=== PATIENT | female | born 1955 | race Caucasian/White ===

== ENCOUNTER 2024-05-13 21:22 | Emergency (ER) | payer MEDICARE, OTHER, SELFPAY ==
[2024-05-13 21:24] VITALS: BP 95/56; PULSE 61; RESP 18; TEMP 37; O2SAT 95
--- NOTE | 2024-05-13 22:00 | EDRME_ITS ---
Rapid Medical Screening Exam RME Arrival date/time: 05/13/24 21:22 This is a 68-year-old female that comes in with complaints of generalized weakness for the past several weeks. Per EMS EMS went to patient's house approximately a week ago and at that time patient was having slurred speech. Today this is not the complaint. Patient states she just feels very weak also complains of a cough and runny nose. Patient denies fever but feels hot to touch. Patient has a history of high blood pressure, anemia, depression, and per patient has been at bedside has had a hard time walking. Per patient has been at bedside patient takes [place], Xanax, tizanidine. Patient has been reports that tries to have her not take so much medication I have greeted and performed a focused initial assessment of this patient. Initial appropriate labs ordered at this time. A comprehensive ED assessment and evaluation of the patient and analysis of all test and completion of medical decision making process will be conducted by additional ED provider. Chief Complaint: Weakness Time Seen by Provider: 05/13/24 21:59 Vital signs: Vital Signs Temperature 98.6 F 05/13/24 21:24 Pulse Rate 61 05/13/24 21:24 Respiratory Rate 18 05/13/24 21:24 Blood Pressure 95/56 L 05/13/24 21:24 Pulse Oximetry (%) 95 05/13/24 21:24 Oxygen Delivery Method Nasal Cannula 05/13/24 21:24 Oxygen Flow Rate 6 05/13/24 21:24
--- NOTE | 2024-05-13 22:01 | XR_ITS ---
Examination: CT brain head without contrast. 2-D sagittal coronal reconstructions Date and time of exam:May 13, 2024 11:06 PM Comparison August 19, 2023 Indications: Onset slurred speech today CTDI: vol (mGy):51.5 DLP: (mGycm):1047 Technique: Multiple CT axial sections of the brain have been obtained, 5 mm slice thickness. Contrast has not been administered. 2-D sagittal, coronal reconstructions have been obtained Low dose protocols were performed. One or more of the following dose reduction techniques were used; automated exposure control, adjustment of the mA and/or KV according to patient size, use of iterative reconstruction technique. Findings: No significant ventricular enlargement. Intra-axial or extra-axial hemorrhage density is not seen. No mass effect or midline shift Basal cisterns are not remarkable. Fourth ventricle is midline. Cranial vault intact. Impression: Negative for acute hemorrhage, mass effect or midline shift As clinically warranted, consider brain MRI follow-up, stroke protocol, also consider adding brain MRI follow-up with contrast given the patient's history of pulmonary mass in the left upper lobe
--- NOTE | 2024-05-13 22:02 | XR_ITS ---
Examination: AP chest single view Technique one AP portable upright chest single view Exam date and time: May 13, 2024 1008 hrs. Comparison August 19, 2023 Indications: Coughing today. 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
[2024-05-13 22:30] VITALS: BMI 28.1
[2024-05-13 23:02] LABS: Basophils # (Auto) 0.1 Thou/mm3 (0.0-0.2); Basophils % (Auto) 1 % (0-2.5); Eosinophils # (Auto) 0.1 Thou/mm3 (0.0-0.5); Eosinophils % (Auto) 1 % (0-10); Hematocrit 44.7 % (36.0-46.0); Hemoglobin 14.1 g/dL (12.0-16.0); Immature Granulocytes % (Auto) 0 % (0-0); Immature Granulocytes Auto 0.03 Thou/mm3 (0.00-0.00); Lymphocytes # (Auto) 2.1 Thou/mm3 (1.0-4.8); Lymphocytes % (Auto) 21 % (10-50); Mean Corpuscular HGB Conc 31.5 g/dl (31.0-37.0); Mean Corpuscular Hemoglobin 29.7 pg (25.0-35.0); Mean Corpuscular Volume 94 fL (80-100); Monocytes % (Auto) 11 % (0-12); Neutrophils # (Auto) 6.3 Thou/mm3 (1.8-7.7); Neutrophils % (Auto) 66 % (37-80); Nucleated Red Blood Cell # 0.02 Thou/mm3 (0.00-0.00); Nucleated Red Blood Cell % 0 /100 WBC (0); Platelet Count 242 Thou/mm3 (140-440); RDW Standard Deviation 54.2 fL (36.4-46.3); Red Blood Count 4.74 Miln/mm3 (4.00-5.20); White Blood Count 9.6 Thou/mm3 (3.6-11.0)
--- NOTE | 2024-05-13 23:29 | EDNOTE_ITS ---
ED Weakness RME/HPI General Chief complaint: Weakness Stated complaint: WEAKNESS Time Seen by Provider: 05/13/24 21:59 Source: patient and EMS Arrival date/time: 05/13/24 21:22 Mode of arrival: EMS Limitations: no limitations RME / HPI RME / HPI Narrative: --- DR. NUNEZ MAIN ED EVALUATION: 68-year-old female presents to ED for generalized weakness for the past several weeks. Per EMS report, they went to patient's house about 1 week ago and at that time patient was having slurred speech however today, this is not the complaint. Patient notes she feels very weak. She also complains of a cough and runny nose. No fever. History includes high blood pressure, anemia, depression. Patient notes she has had a hard time walking. Patient takes [place], Xanax, Tizanidine. Patient reports symptoms came on after disagreement with her son. Related Data Home Medications ?Medication ?Instructions ?Recorded ?Confirmed tizanidine 4 mg capsule 4 mg PO TID 07/02/17 09/23/23 alprazolam 1 mg tablet (Xanax) 2 mg PO TID PRN Anxiety 01/27/22 09/23/23 triamterene 50 mg capsule 37.5 mg PO QDAY 01/27/22 01/27/22 amlodipine 10 mg tablet 10 mg PO DAILY 08/20/23 09/23/23 hydrocodone 10 mg-acetaminophen 10 - 325 tab PO Q6HR 08/20/23 09/23/23 325 mg tablet azelastine 205.5 mcg (0.15 %) 1 spray intranasal PRN PRN 09/23/23 09/23/23 nasal spray (Astepro Allergy) allergies temazepam 30 mg capsule 30 mg PO DAILY 09/23/23 09/23/23 thyroid (pork) 90 mg tablet 90 mg PO DAILY 09/23/23 09/23/23 (Linneus Thyroid) Previous Rx's ?Medication ?Instructions ?Recorded metoprolol succinate 25 mg 25 mg PO QDAY 30 days #30 tabs 08/21/23 tablet,extended release 24 hr Allergies Allergy/AdvReac Type Severity Reaction Status Date / Time pregabalin Allergy Severe TONGUE Verified 04/04/23 10:58 SWELLING gabapentin Allergy Intermediate Swelling Verified 04/04/23 10:58 Review of Systems Review of Systems Systems Reviewed: All systems reviewed, normal except as documented Past Medical History Past Medical History NEUROLOGIC: Positive Neurological Disorders and Migraine CARDIAC: Negative Cardiac Disorders or Congestive Heart Failure RESPIRATORY: Positive Chronic Obstructive Pulmonary Disease (COPD) and Pneumonia; Negative Asthma GASTROINTESTINAL: Positive Gastrointestinal Disorders and Irritable Bowel; Negative Hepatitis GENITOURINARY: Positive Renal Disease; Negative Genitourinary Disorders REPRODUCTIVE: Positive Previous Pregnancies MUSCULOSKELETAL: Positive Musculoskeletal Disorders, Arthritis and Fibromyalgia ENDOCRINE: Positive Endocrine Disorders and Hypothyroidism; Negative Diabetes Mellitus Type 1 or Diabetes Mellitus Type 2 HEMATOLOGIC: Positive Blood Disorders and Anemia; Negative Sickle Cell Disease PSYCHO/SOCIAL: Positive Depression and Anxiety OTHER HISTORY: Positive Blood Transfusions, Chicken Pox, Measles and Mumps; Negative Autoimmune Disease, Human Immunodeficiency Virus (HIV), Rubella ([place] Measles), Pertussis or Clostridium Difficile Family History FAMILY HISTORY: Positive Family Respiratory Disorders and Family Cancer; Negative Family Psychiatric Problems, Family Cardiac Disorders, Family Gastrointestinal Problems, Family Surgery or Family Anesthesia Reaction Surgical History SURGICAL: Positive Oral Surgery, Tonsillectomy, Adenoidectomy and Hysterectomy Social History SMOKING STATUS: Current every day smoker ED Exam Narrative Physical exam: Negative romberg. No aphasia or dysarthria. General Limitations: Present no limitations General appearance: Present alert, in no apparent distress and other (interactive, not pale, appears fatigue) Head Head exam: Present atraumatic, normocephalic and normal inspection Eye Eye exam: Present normal appearance, PERRL and EOMI ENT ENT exam: Present normal exam, normal oropharynx, TM's normal bilaterally and normal external ear exam Neck Neck exam: Present normal inspection and full ROM Chest Chest inspection: Present normal inspection and symmetric chest wall rise Respiratory Respiratory exam: Present normal lung sounds bilaterally Cardiovascular Cardiovascular exam: Present regular rate, normal rhythm and normal heart sounds Abdominal Exam Abdominal exam: Present normal bowel sounds Extremities Exam Extremities exam: Present normal inspection and full ROM Back Exam Back exam: Present normal inspection and full ROM Neurological Exam Neurological exam: Present alert, oriented X3 and CN II-XII intact Psychiatric Psychiatric exam: Present normal affect and normal mood; Absent depressed Skin Skin exam: Present warm, dry, intact and normal color Course Quality Measures none Orders Category Date Time Status Bedside COVID-19 Antigen Test NOW Care 05/13/24 22:02 Completed Bedside Influenza A&B Antigen Test NOW Care 05/13/24 22:02 Completed EKG (ED ONLY) *Do not use* NOW Care 05/13/24 22:[address] head/brain wo con Stat Exams 05/13/24 22:01 Completed EKG (ED Only) Stat Exams 05/13/24 22:02 Ordered XR chest 1V Stat Exams 05/13/24 22:02 Completed BNP [B-Type Natriuretic Peptide] Stat Lab 05/13/24 22:26 Completed CBC Stat Lab 05/13/24 22:26 Completed Comprehensive Metabolic Panel Stat Lab 05/13/24 22:26 Completed Troponin I Stat Lab 05/13/24 22:26 Completed Vital Signs Vital signs: Vital Signs Temperature 98.6 F 05/13/24 21:24 Pulse Rate 61 05/13/24 21:24 Respiratory Rate 18 05/13/24 21:24 Blood Pressure 95/56 L 05/13/24 21:24 Pulse Oximetry (%) 95 05/13/24 21:24 Oxygen Delivery Method Nasal Cannula 05/13/24 21:24 Oxygen Flow Rate 6 05/13/24 21:24 Weakness MDM Narrative MDM Narrative:: ? Scribe Attestation: I, Beltran Pemberton, am scribing for and in the presence of Dr. Luciano. Provider Notation: Although this document has been carefully reviewed, there may still be some phonetic and other typographical errors. These errors are purely grammatical due to imperfections in the software program and should not be construed in any way to compromise the substance of the patient's medical care during this visit. Patient data External records reviewed:: [facility] previous records and EMS form Clinical information provided by:: patient and EMS Social determinants that could affect healthcare access:: none Patient has the following chronic illnesses:: high blood pressure, anemia, depression How is presenting disease/condition affected by chronic disease/condition?: uneffected by Evaluation data The following diagnostics were reviewed and interpreted by me:: lab results and radiology exam(s) Lab and/or radiology exams considered but not ordered:: None Interpretation Summary: I personally reviewed the radiology data and agree with the radiologist's interpretation. Examination: AP chest single view Exam date and time: May 13, 2024 1008 hrs. Comparison August 19, 2023 Indications: Coughing today. 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 Date and time of exam:May 13, 2024 11:06 PM Comparison August 19, 2023 Indications: Onset slurred speech today iterative reconstruction technique. Findings: No significant ventricular enlargement. Intra-axial or extra-axial hemorrhage density is not seen. No mass effect or midline shift Basal cisterns are not remarkable. Fourth ventricle is midline. Cranial vault intact. Impression: Negative for acute hemorrhage, mass effect or midline shift As clinically warranted, consider brain MRI follow-up, stroke protocol, also consider adding brain MRI follow-up with contrast given the patient's history of pulmonary mass in the left upper lobe Dictated By: Wilman Davila MD Medications / Prescriptions Medications or Prescriptions considered but not ordered:: None Medication administrations:: As above, if any Consultations Consultation(s) initiated? (list below): No Diagnosis Weakness Differential Diagnosis: acute myocardial infarction, anemia, hypoglycemia, rhabdomyolysis, sepsis and dehydration Most likely diagnosis given after review of the tests above:: Anxiety, Generalized weakness Admission Indicated Admission indicated?: not indicated Admission Request Was there a request for admission?: No Disposition Plan Disposition Plan: Discharge Discharge Attestation Discharge Attestation: The patient and all family members were given an opportunity to ask questions and understood the discharge instructions. Discharge instructions specifically effects, indications for sooner follow up or return to the emergency department, and the expected course of current diagnosis. Patient condition: Stable Discharge Plan Plan Patient Disposition: HOME (Self Care) Patient condition on transfer: Stable Prescriptions/Referrals Prescriptions/Med Rec: No Action tizanidine 4 mg Capsule 4 mg PO TID alprazolam [Xanax] 1 mg Tablet 2 mg PO TID PRN (Reason: Anxiety) triamterene 50 mg Capsule 37.5 mg PO QDAY amlodipine 10 mg tablet 10 mg PO DAILY Patient Comments: TAKE 1 TABLET BY MOUTH EVERY DAY FOR 30 DAYS hydrocodone-acetaminophen 10-325 mg tablet 10 - 325 tab PO Q6HR Patient Comments: TAKE 1 TABLET BY MOUTH EVERY 6 HOURS metoprolol succinate 25 mg Tablet Extended Release 24 Hr 25 mg PO QDAY 30 Days Qty: 30 2RF temazepam 30 mg Capsule 30 mg PO DAILY thyroid (pork) [Linneus Thyroid] 90 mg Tablet 90 mg PO DAILY azelastine [Astepro Allergy] 205.5 mcg (0.15 %) [place],Non-Aerosol 1 spray INTRANASAL PRN PRN (Reason: allergies) Referrals: Michael French MD [Primary Care Provider] - In 1 week Problem List Clinical Impression: Anxiety, Generalized weakness Patient/Caregiver Discharge Instructions Education Materials: ED Anxiety Reaction, ED Weakness (Uncertain Cause) Additional Instructions: Please return to the emergency department for any worsening symptoms, or any other concerns. Ensure that you had a argument with your son. Please follow-up with your primary care physician next 48 to 72 hours. Print Language: [place]se Stand Alone Forms: Jeanna Award Info., Patient Portal Info Letter
[2024-05-13 23:43] LABS: B-Type Natriuretic Peptide 24 pg/mL (0-100)
[2024-05-14 00:01] VITALS: BP 119/66; PULSE 72; RESP 19; TEMP 37.6; O2SAT 95
[2024-05-14 00:47] LABS: Alanine Aminotransferase < 7 U/L (10-49); Albumin, Serum 4.6 gm/dL (3.4-4.8); Albumin/Globulin Ratio 1.5 (1.2-2.2); Alkaline Phosphatase 101 U/L (46-116); Anion Gap 8 (7-16); Aspartate Amino Transferase 20 U/L (0-34); BUN/Creatinine Ratio 23 Ratio (12-20); Bilirubin,Total 0.4 mg/dL (0.3-1.2); Blood Urea Nitrogen 21 mg/dL (9-23); Calcium 9.6 mg/dL (8.3-10.6); Calcium (Corrected) 9.6 mg/dL (8.5-10.1); Carbon Dioxide 30.9 mMol/L (20.0-31.0); Chloride 100 mMol/L (98-107); Creatinine (Component) 0.9 mg/dL (0.6-1.3); Estimated Creatinine Clearance 64.8 mL/min (>60); Glucose 87 mg/dL (74-106); Osmolality,Calculated 279 (275-295); Potassium 3.6 mMol/L (3.4-5.1); Sodium 139 mMol/L (136-145); Total Protein 7.6 gm/dL (5.7-8.2); Troponin I < 0.020 ng/mL (0.0-0.045); eGFR > 60 See Note
[2024-05-14 03:04] VITALS: BP 118/56; PULSE 79; RESP 20; O2SAT 98
== END 2024-05-14 04:02 | disposition home or self-care (01) ==
PROVIDERS: Nurse Practitioner Family; Emergency Provider Emergency Medicine; PCP Family Medicine
DX: F41.9 Anxiety disorder, unspecified (principal); R53.1 Weakness; F32.A Depression, unspecified; R05.9 Cough, unspecified; R09.89 Other specified symptoms and signs involving the circulatory and respiratory systems
CPT/HCPCS: 36415; 70450; 71045; 80053; 81001; 83880; 84484; 85025; 87400; 87811; 93005; 99284

== ENCOUNTER 2024-06-04 12:51 | Inpatient (IN) | payer MEDICARE, OTHER, SELFPAY ==
[2024-06-04] VITALS (38 sets, daily range): BP systolic 72–123; BP diastolic 46–88; PULSE 63–166; RESP 12–99; TEMP 37.2–41.1; O2SAT 96–100; BMI 27.3
--- NOTE | 2024-06-04 12:54 | PC.NURSE ---
macie from home per went to bed at 1999 last night and was normal. This morning when they woke up she was lethargic and not very responsive. denies any illness, no falls, no trauma. Baseline GCS 15. Normally gets up with assistance. Only PMH aware of is hypothyroidism. 20g L AC Vitals with EMS 135 hr 146/90 BG 190 GCS 12 96 room air
--- NOTE | 2024-06-04 12:55 | XR_ITS ---
Examination: CT brain head without contrast. 2-D sagittal coronal reconstructions Date and time of exam:June 04, 2024 1311 hrs. Indications: Stroke alert, onset focal neurologic deficit slurred speech today CTDI: vol (mGy):52.4 DLP: (mGycm):1099 Technique: Multiple CT axial sections of the brain have been obtained, 5 mm slice thickness. Contrast has not been administered. 2-D sagittal, coronal reconstructions have been obtained Low dose protocols were performed. One or more of the following dose reduction techniques were used; automated exposure control, adjustment of the mA and/or KV according to patient size, use of iterative reconstruction technique. Findings: The images are degraded by patient motion Ventricles are not enlarged No mass effect upon the ventricular system No acute hemorrhage either intra or extra-axially is noted Impression: The images are degraded by patient motion No gross hemorrhage mass effect or midline shift
--- NOTE | 2024-06-04 12:55 | EKG_ITS ---
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
--- NOTE | 2024-06-04 12:55 | XR_ITS ---
Examination: CTA carotids with intravenous contrast CTA brain, head with intravenous contrast. 2-D sagittal, coronal reconstructions. 3-D reconstructions. Exam date and time: June 04, 2024 1317 hrs. Indications: Stroke alert, onset focal neurologic deficit today since CTDI: vol (mGy) 17 DLP: (mGycm) : 453 Technique: Multiple CTA axial brain, head carotid images post intravenous contrast injection 75 cc, [id number]. 2-D sagittal, coronal reconstructions. 3-D reconstructions, 3-D post processing including vascular maximum intensity projection images. Low dose protocols were performed. One or more of the following dose reduction techniques were used; automated exposure control, adjustment of the mA and/or KV according to patient size, use of iterative reconstruction technique. Findings: 5 x 6 cm pulmonary mass, spiculated margins left upper lobe No significant common carotid carotid bifurcation or internal carotid artery stenoses Mildly dominant right vertebral artery with no critical stenoses Basilar artery posterior cerebral branches do fill Juxtasellar supraclinoid portions internal carotid arteries M1 segments middle cerebral arteries middle cerebral artery trifurcation vessels anterior cerebral vessels fill with no large vessel occlusions history Impression: 5 x 6 cm pulmonary mass spiculated margins left upper lobe, please see the chest x-ray report May 13, 2024 No significant neck arterial stenoses No cerebral large vessel arterial occlusions or thrombus 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
--- NOTE | 2024-06-04 12:58 | EDNOTE_ITS ---
ED General RME/HPI General Chief complaint: Altered Mental Status Stated complaint: AMS Time Seen by Provider: 06/04/24 12:55 Arrival date/time: 06/04/24 12:51 CC: Altered mental status EMS report the patient last seen normal at 2200 (per report from EMS from the )coming from home today EMS report tachycardic nonresponsive, warm to touch. Patient has right deviated head right deviated gaze with fascicular twitching of the face. Related Data Home Medications ?Medication ?Instructions ?Recorded ?Confirmed tizanidine 4 mg capsule 4 mg PO TID 07/02/17 09/23/23 alprazolam 1 mg tablet (Xanax) 2 mg PO TID PRN Anxiety 01/27/22 09/23/23 triamterene 50 mg capsule 37.5 mg PO QDAY 01/27/22 01/27/22 amlodipine 10 mg tablet 10 mg PO DAILY 08/20/23 09/23/23 hydrocodone 10 mg-acetaminophen 10 - 325 tab PO Q6HR 08/20/23 09/23/23 325 mg tablet azelastine 205.5 mcg (0.15 %) 1 spray intranasal PRN PRN 09/23/23 09/23/23 nasal spray (Astepro Allergy) allergies temazepam 30 mg capsule 30 mg PO DAILY 09/23/23 09/23/23 thyroid (pork) 90 mg tablet 90 mg PO DAILY 09/23/23 09/23/23 ([place] Thyroid) Previous Rx's ?Medication ?Instructions ?Recorded metoprolol succinate 25 mg 25 mg PO QDAY 30 days #30 tabs 08/21/23 tablet,extended release 24 hr Allergies Allergy/AdvReac Type Severity Reaction Status Date / Time pregabalin Allergy Severe TONGUE Verified 04/04/23 10:58 SWELLING gabapentin Allergy Intermediate Swelling Verified 04/04/23 10:58 Review of Systems Review of Systems ROS Unobtainable: unobtainable due to mental status Past Medical History Past Medical History NEUROLOGIC: Positive Neurological Disorders and Migraine CARDIAC: Negative Cardiac Disorders or Congestive Heart Failure RESPIRATORY: Positive Chronic Obstructive Pulmonary Disease (COPD) and Pneumonia; Negative Asthma GASTROINTESTINAL: Positive Gastrointestinal Disorders and Irritable Bowel; Negative Hepatitis GENITOURINARY: Positive Renal Disease; Negative Genitourinary Disorders REPRODUCTIVE: Positive Previous Pregnancies MUSCULOSKELETAL: Positive Musculoskeletal Disorders, Arthritis and Fibromyalgia ENDOCRINE: Positive Endocrine Disorders and Hypothyroidism; Negative Diabetes Mellitus Type 1 or Diabetes Mellitus Type 2 HEMATOLOGIC: Positive Blood Disorders and Anemia; Negative Sickle Cell Disease PSYCHO/SOCIAL: Positive Depression and Anxiety OTHER HISTORY: Positive Blood Transfusions, Chicken Pox, Measles and Mumps; Negative Autoimmune Disease, Human Immunodeficiency Virus (HIV), Rubella ([place] Measles), Pertussis or Clostridium Difficile Family History FAMILY HISTORY: Positive Family Respiratory Disorders and Family Cancer; Negative Family Psychiatric Problems, Family Cardiac Disorders, Family Gastrointestinal Problems, Family Surgery or Family Anesthesia Reaction Surgical History SURGICAL: Positive Oral Surgery, Tonsillectomy, Adenoidectomy and Hysterectomy Social History SMOKING STATUS: Current every day smoker ED Exam Narrative Physical exam: [General: Patient nonresponsive Head normocephalic HEENT: Right deviated gaze, intermittent tracking but always returning to a right deviated gaze. Mouth opening and closing of the mouth and a random motion nonverbal. Nose: No rhinorrhea epistaxis. Neck is supple nontender Chest equal chest rise nontender to palpation Respiratory: Clear to auscultation no wheezes crackles or rubs CV: Rate rhythm is regular no murmurs rubs or clicks Abdomen is distended secondary to body habitus soft, central vertical scar well- healed Back: No CVA tenderness no spinous process tenderness from cervical spine thoracic and lumbar spine Skin: Intact no petechiae rash induration ulceration or crepitus Extremities: Cap refill in all digits less than 2 seconds not moving her extremities spontaneously Neuro: Awake Course Course Course Narrative: At 1430, Dr. Hyman assumed care of the patient. Quality Measures VTE prophylaxis Orders Category Date Time Status Bedside Blood Glucose NOW Care 06/04/24 12:55 Active Bedside COVID-19 Antigen Test NOW Care 06/04/24 12:55 Active Bedside COVID-19 Antigen Test NOW Care 06/04/24 18:22 Active Bedside Influenza A&B Antigen Test NOW Care 06/04/24 12:56 Completed Real Estate Photographer NOW Care 06/04/24 12:55 Active Continuous Pulse Oximetry NOW Care 06/04/24 12:55 Completed Cooling Measures NEEDED Care 06/04/24 13:04 Active EKG (ED ONLY) *Do not use* NOW Care 06/04/24 12:55 Completed In and Out Catheter NEEDED Care 06/04/24 12:55 Active In and Out Catheter X1 Care 06/04/24 12:56 Completed Insert IV NOW Care 06/04/24 12:55 Active Intubation NOW Care 06/04/24 15:27 Completed LP [Lumbar Puncture set up] NOW Care 06/04/24 13:32 Active NIH Stroke Scale now Care 06/04/24 12:55 Active NPO NOW Care 06/04/24 12:55 Active Nurse Swallow Screen x1 Care 06/04/24 12:55 Active Consult to Neurology / Tele-Neurology Routine Cons 06/04/24 12:[address] angio stroke protocol Stat Exams 06/04/24 12:[address] stroke protocol Stat Exams 06/04/24 12:55 Completed EKG (ED Only) Stat Exams 06/04/24 12:55 Ordered XR chest 1V portable Stat Exams 06/04/24 14:27 Completed XR chest 1V portable Stat Exams 06/04/24 15:41 Completed ABG [Arterial Blood Gas] Stat Lab 06/04/24 17:44 Ordered Bacterial Ag-Ltx, CSF Stat Lab 06/04/24 13:33 Ordered Blood Culture (Lab) Stat Lab 06/04/24 14:05 Received CBC Stat Lab 06/04/24 12:56 Completed CBC Stat Lab 06/04/24 17:54 Completed CK [Creatine Kinase] Stat Lab 06/04/24 17:54 Received CMP [Comprehensive Metabolic Panel] Stat Lab 06/04/24 17:54 Received CSF Culture and Gram Stain Stat Lab 06/04/24 13:32 Ordered Cell Count w Diff, CSF Stat Lab 06/04/24 13:33 Ordered Coccid Serology, CF CSF (UCD)* Stat Lab 06/04/24 13:33 Ordered Comprehensive Metabolic Panel Stat Lab 06/04/24 12:56 Completed Drug Screen,Urine Stat Lab 06/04/24 14:12 Completed Enterovirus RNA, PCR, CSF Stat Lab 06/04/24 Ordered Glucose,CSF Stat Lab 06/04/24 13:33 Ordered HCG Titer if Positive Stat Lab 06/04/24 12:56 Completed HSV-1&2 DNA, QN, CSF* Stat Lab 06/04/24 Ordered Lactate (Lactic Acid) Stat Lab 06/04/24 17:54 Results Lactic Acid [Lactate (Lactic Acid)] Stat Lab 06/04/24 12:56 Completed Lactic Acid, 3 HR Stat Lab 06/04/24 16:22 Completed Magnesium Stat Lab 06/04/24 12:56 Completed PTH [Parathyroid Hormone Intact] Stat Lab 06/04/24 14:35 Received Partial Thromboplastin Time Stat Lab 06/04/24 12:56 Completed Procalcitonin Stat Lab 06/04/24 12:56 Completed Protein Total,CSF Stat Lab 06/04/24 13:33 Ordered Prothrombin Time with INR Stat Lab 06/04/24 12:56 Completed Sputum Culture and Gram Stain Stat Lab 06/04/24 15:51 Ordered Troponin I Stat Lab 06/04/24 12:56 Completed Troponin I Stat Lab 06/04/24 17:54 Received Urinalysis Stat Lab 06/04/24 14:12 Completed Urine Culture Stat Lab 06/04/24 14:12 Received VDRL, CSF Qual* Stat Lab 06/04/24 Ordered Venous Blood Gas Stat Lab 06/04/24 14:35 Completed Venous Blood Gas Stat Lab 06/04/24 16:22 Completed Acetaminophen Supp [Tylenol Supp] Med 06/04/24 13:04 Discontinued 650 mg [place] X1 ONE Acyclovir Inj [Zovirax Inj] 800 mg Med 06/04/24 13:34 Discontinued Sodium Chloride 0.9% [Ns] 100 ml IV NOW Etomidate Inj [Amidate Inj] Med 06/04/24 15:23 Discontinued 20 mg IVP X1 ONE LORazepam [Ativan Inj] Med 06/04/24 13:32 Discontinued 2 mg IVP X1 ONE LORazepam [Ativan Inj] Med 06/04/24 16:23 Discontinued 2 mg IVP X1 ONE Midazolam/Ns 100 mg Ivpb [Versed Pf Inj in Ns Premix] Med 06/04/24 17:10 Active 100 mg in 100 ml IV 1 mg/hr Norepinephrine/D5W 8mg/250ml [Levophed in D5W 8mg/250ml Med 06/04/24 17:45 Active ] 8 mg in 250 ml IV 0.05 mcg/kg/min Ondansetron Inj [Zofran Inj] Med 06/04/24 12:55 Active 4 mg IV Q4HR PRN Ringers Lactated 1000 ml [Lactated Ringers] 1,000 ml Med 06/04/24 18:16 Active IV 999 mls/hr Ringers Lactated 1000 ml [Lactated Ringers] 1,779 ml Med 06/04/24 16:11 Discontinued IV 1,779 mls/hr Sodium Chloride 0.9% 1000 ml [Ns] 1,000 ml Med 06/04/24 13:06 Discontinued IV 999 mls/hr cefTRIAXone [Rocephin] 2 gm Med 06/04/24 13:33 Discontinued Sodium Chloride 0.9% [Ns] 50 ml IV NOW fentaNYL 2,500 MCG/250 ML BAG [Sublimaze Inj 2,500 MCG/ Med 06/04/24 17:10 Active 250 ML BAG] 2,500 mcg in 250 ml IV 25 mcg/hr levETIRAcetam INJ [Keppra Inj] Med 06/04/24 12:57 Discontinued 1,000 mg IVP X1 ONE Mechanical [Volume Ventilator] Stat RT 06/04/24 Active Oxygen Delivery NOW RT 06/04/24 12:55 Active Vital Signs Vital signs: Vital Signs Temperature 106.0 F H 06/04/24 13:57 Procedures -ED Procedure Comment LP. Patient placed in right lateral recumbent position knees flexed to the umbilicus, head is fairly rigid attempted with 2 nurses to maintain head flexed to the chest. Landmarks identified, site sterilely draped. Site identified site numbed advanced to LP needle in the first attempt with a clear pop sensation multiple times removing the stylette and no flow. 2 more attempts proximal to the initial site without success. [facility] Patient data External records reviewed:: [facility] previous records and EMS form Clinical information provided by:: patient and EMS Social determinants that could affect healthcare access:: none Patient has the following chronic illnesses:: None How is presenting disease/condition affected by chronic disease/condition?: u neffected by Evaluation data The following diagnostics were reviewed and interpreted by me:: lab results and radiology exam(s) Lab and/or radiology exams considered but not ordered:: See [facility] Interpretation Summary: Altered mental callus acute renal failure sepsis Medications Medications considered but not ordered:: None Medication administrations:: Medication Administration History Fentanyl Citrate (Sublimaze Inj 2,500 Mcg/250 Ml Bag) 2,500 mcg in 250 mls @ 2.5 mls/hr IV .Q24H PRN; Protocol PRN Reason: PER PROTOCOL Stop: 06/09/24 17:09 Last Titration: 06/04/24 18:06 Dose: 50 mcg/hr, 5 mls/hr Documented By: Admin: 06/04/24 17:16 Dose: 25 mcg/hr, 2.5 mls/hr Documented By: NUBIA Co-signed By: MERLY Midazolam HCl (Versed Pf Inj In Ns Premix) 100 mg in 100 mls @ 1 mls/hr IV .Q24H PRN; Protocol PRN Reason: PER PROTOCOL Stop: 06/09/24 17:09 Last Admin: 06/04/24 17:26 Dose: 1 mg/hr, 1 mls/hr Documented By: NUBIA Co-signed By: MERLY Norepinephrine/Dextrose (Levophed In D5w 8mg/250ml) 8 mg in 250 mls @ 7.654 mls/hr IV .Q24H PRN; Protocol PRN Reason: PER PROTOCOL Stop: 07/04/24 17:44 Lactated Ringer's (Lactated Ringers) 1,000 mls @ 999 mls/hr IV .Q1H1M ONE Stop: 06/04/24 19:16 Last Admin: 06/04/24 18:17 Dose: 999 mls/hr Documented By: NUBIA Ondansetron HCl (Ondansetron Inj 2 Mg/Ml Inj 2 Ml) 4 mg IV Q4HR PRN PRN Reason: NAUSEA OR VOMITING Stop: 07/04/24 12:54 Last Admin: 06/04/24 17:28 Dose: 4 mg Documented By: Admin: 06/04/24 13:53 Dose: 4 mg Documented By: ELLEN Discontinued Medications Acetaminophen (Acetaminophen Supp 650 Mg Supp) 650 mg [place] X1 ONE Stop: 06/04/24 13:05 Last Admin: 06/04/24 13:57 Dose: 650 mg Documented By: ELLEN Etomidate (Etomidate Inj 2 Mg/Ml Vial 10 Ml) 20 mg IVP X1 ONE Stop: 06/04/24 15:24 Last Admin: 06/04/24 15:34 Dose: 20 mg Documented By: MERLY Sodium Chloride (Ns) 1,000 mls @ 999 mls/hr IV .Q1H1M ONE Stop: 06/04/24 14:06 Last Infusion: 06/04/24 15:05 Dose: Infused Documented By: Admin: 06/04/24 13:52 Dose: 999 mls/hr Documented By: ELLEN Ceftriaxone Sodium 2 gm/ (Sodium Chloride) 50 mls @ 100 mls/hr IV NOW ONE Stop: 06/04/24 14:02 Last Infusion: 06/04/24 14:40 Dose: Infused Documented By: Admin: 06/04/24 14:06 Dose: 100 mls/hr Documented By: ELLEN Acyclovir Sodium 800 mg/ (Sodium Chloride) 116 mls @ 100 mls/hr IV NOW ONE Stop: 06/04/24 14:33 Last Infusion: 06/04/24 17:27 Dose: Infused Documented By: Admin: 06/04/24 16:09 Dose: 100 mls/hr Documented By: NUBIA Lactated Ringer's (Lactated Ringers) 1,779 mls @ 1,779 mls/hr 30 ml/kg infuse over 60 min (1779 ml) IV .Q1H ONE Stop: 06/04/24 17:10 Last Admin: 06/04/24 16:29 Dose: 1,779 mls/hr Documented By: NUBIA Levetiracetam (Levetiracetam Inj 100 Mg/Ml Vial 5ml) 1,000 mg IVP X1 ONE Stop: 06/04/24 12:58 Last Admin: 06/04/24 13:51 Dose: 1,000 mg Documented By: ELLEN Lorazepam (Lorazepam 2 Mg/Ml Vial) 2 mg IVP X1 ONE Stop: 06/04/24 13:33 Last Admin: 06/04/24 13:50 Dose: 2 mg Documented By: NUBIA Lorazepam (Lorazepam 2 Mg/Ml Vial) 2 mg IVP X1 ONE Stop: 06/04/24 16:24 Last Admin: 06/04/24 16:26 Dose: 2 mg Documented By: NUBIA None Consultations Consultation(s) initiated? (list below): No Diagnosis Differential Diagnosis ED Complaint MDM: Sepsis altered mental status fever Most likely diagnosis given after review of the tests above:: Sepsis altered mental status fever NOHEMI positive troponin Admission Indicated Admission indicated?: indicated Explain why admission is indicated or not indicated:: Further intensive management Admission Request Was there a request for admission?: No Disposition Plan Disposition Plan: Admit Medical Decision Making Differential Diagnosis Differential Diagnosis: Sepsis altered mental status fever Lab Data 06/04/24 17:54 06/04/24 12:56 Labs: Lab Results 06/04/24 06/04/24 06/04/24 Range/Units 12:56 14:12 14:35 WBC 17.7 H (3.6-11.0) Thou/mm3 RBC 6.27 H (4.00-5.20) Miln/mm3 Hgb 18.7 H (12.0-16.0) g/dL Hct 54.8 H (36.0-46.0) % MCV 87 (80-100) fL MCH 29.8 (25.0-35.0) pg MCHC 34.1 (31.0-37.0) g/dl RDW Std Deviation 48.4 H (36.4-46.3) fL Plt Count 277 D (140-440) Thou/mm3 Neut % (Auto) 88 H (37-80) % Lymph % (Auto) 3 L (10-50) % [place] % (Auto) 9 (0-12) % Eos % (Auto) 0 (0-10) % Baso % (Auto) 0 (0-2.5) % Neut # (Auto) 15.6 H (1.8-7.7) Thou/mm3 Lymph # (Auto) 0.5 L (1.0-4.8) Thou/mm3 [place] # (Auto) 1.5 H (0.0-0.8) Thou/mm3 Eos # (Auto) 0.0 (0.0-0.5) Thou/mm3 Baso # (Auto) 0.0 (0.0-0.2) Thou/mm3 Immature Gran # (Auto) 0.06 H (0.00-0.00) Thou/mm3 Absolute Nucleated RBC 0.00 (0.00-0.00) Thou/mm3 Immature Gran % 0 (0-0) % Nucleated RBC % 0 (0) /100 WBC PT 13.7 H (9.0-12.2) Seconds INR 1.3 (0.9-1.3) APTT 29.3 (22.0-36.0) Seconds VBG pH 7.33 (7.33-7.66) VBG pCO2 38 (36-56) mmHg VBG pO2 65 H (15-58) mmHg VBG O2 Sat (Kevin) 90 L (96-97) % VBG Base Excess -5 L (-3-3) Sodium 144 (136-145) mMol/L Potassium 3.3 L (3.4-5.1) mMol/L Chloride 105 (98-107) mMol/L Carbon Dioxide 17.8 L (20.0-31.0) mMol/L Anion Gap 21 H (7-16) BUN 82 H (9-23) mg/dL Creatinine 3.8 H (0.6-1.3) mg/dL Estim Creat Clear Calc Not Performed. eGFR 12 L* (60 - ) See Note BUN/Creatinine Ratio 22 H (12-20) Ratio Glucose 170 H (74-106) mg/dL Calculated Osmolality 315 H (275-295) Lactic Acid 4.3 H* (0.4-2.0) mMol/L Calcium 12.1 H (8.3-10.6) mg/dL Corrected Calcium 12.1 H (8.5-10.1) mg/dL Magnesium 2.6 (1.6-2.6) mg/dL Total Bilirubin 1.7 H (0.3-1.2) mg/dL AST 66 H (0-34) U/L ALT 25 (10-49) U/L Alkaline Phosphatase 107 (46-116) U/L Troponin I 1.676 H* (0.0-0.045) ng/mL Total Protein 9.7 H (5.7-8.2) gm/dL Albumin 5.6 H (3.4-4.8) gm/dL Globulin 4.1 H (2.3-3.5) gm/dL Albumin/Globulin Ratio 1.4 (1.2-2.2) Procalcitonin 1.63 H (0.0-0.49) ng/ml Ur Collection Type Catheter Urine Color Yellow (Lt Yel-Yel) Urine Clarity Turbid A (Clear/Hazy) Urine pH 6.0 (5.0-7.0) Ur Specific [place] 1.024 (1.001-1.035) Urine Protein 2+ A (Neg - Trace) Urine Glucose (UA) Negative (Negative) Urine Ketones Trace (Negative) Urine Blood Negative (Negative) Urine Nitrite Negative (Negative) Urine Bilirubin Negative (Negative) Urine Urobilinogen (Auto) Negative (0.0-1.0) mg/dL Ur Leukocyte Esterase Negative (Negative) Urine RBC 2 (0-3) /hpf Urine WBC 2 (0-5) /hpf Ur Squamous Epith Cells < 1 (0-5) /hpf Urine Bacteria Rare (None) Hyaline Casts < 1 (0-1) /hpf Urine Opiates Screen Positive A (Negative) Urine Fentanyl Screen Negative (Negative) Ur Barbiturates Screen Negative (Negative) U Amphetamin/Meth Scrn Negative (Negative) U Benzodiazepines Scrn Positive A (Negative) U Cocaine Metab Screen Negative (Negative) U Marijuana (THC) Screen Negative (Negative) HCG (Qual) Negative 06/04/24 06/04/24 Range/Units 16:22 17:54 WBC 20.9 H (3.6-11.0) Thou/mm3 RBC 4.82 (4.00-5.20) Miln/mm3 Hgb 14.2 D (12.0-16.0) g/dL Hct 44.6 D (36.0-46.0) % MCV 93 (80-100) fL MCH 29.5 (25.0-35.0) pg MCHC 31.8 (31.0-37.0) g/dl RDW Std Deviation 53.0 H (36.4-46.3) fL Plt Count 207 D (140-440) Thou/mm3 Neut % (Auto) 81 H (37-80) % Lymph % (Auto) 6 L (10-50) % [place] % (Auto) 12 (0-12) % Eos % (Auto) 0 (0-10) % Baso % (Auto) 0 (0-2.5) % Neut # (Auto) 16.9 H (1.8-7.7) Thou/mm3 Lymph # (Auto) 1.3 (1.0-4.8) Thou/mm3 [place] # (Auto) 2.5 H (0.0-0.8) Thou/mm3 Eos # (Auto) 0.0 (0.0-0.5) Thou/mm3 Baso # (Auto) 0.0 (0.0-0.2) Thou/mm3 Immature Gran # (Auto) 0.14 H (0.00-0.00) Thou/mm3 Absolute Nucleated RBC 0.00 (0.00-0.00) Thou/mm3 Immature Gran % 1 H (0-0) % Nucleated RBC % 0 (0) /100 WBC PT (9.0-12.2) Seconds INR (0.9-1.3) APTT (22.0-36.0) Seconds VBG pH 7.29 L (7.33-7.66) VBG pCO2 37 (36-56) mmHg VBG pO2 39 D (15-58) mmHg VBG O2 Sat (Kevin) 67 L (96-97) % VBG Base Excess -8 L (-3-3) Sodium (136-145) mMol/L Potassium (3.4-5.1) mMol/L Chloride (98-107) mMol/L Carbon Dioxide (20.0-31.0) mMol/L Anion Gap (7-16) BUN (9-23) mg/dL Creatinine (0.6-1.3) mg/dL Estim Creat Clear Calc eGFR (60 - ) See Note BUN/Creatinine Ratio (12-20) Ratio Glucose (74-106) mg/dL Calculated Osmolality (275-295) Lactic Acid 3.4 H 5.2 H* (0.4-2.0) mMol/L Calcium (8.3-10.6) mg/dL Corrected Calcium (8.5-10.1) mg/dL Magnesium (1.6-2.6) mg/dL Total Bilirubin (0.3-1.2) mg/dL AST (0-34) U/L ALT (10-49) U/L Alkaline Phosphatase (46-116) U/L Troponin I (0.0-0.045) ng/mL Total Protein (5.7-8.2) gm/dL Albumin (3.4-4.8) gm/dL Globulin (2.3-3.5) gm/dL Albumin/Globulin Ratio (1.2-2.2) Procalcitonin (0.0-0.49) ng/ml Ur Collection Type Urine Color (Lt Yel-Yel) Urine Clarity (Clear/Hazy) Urine pH (5.0-7.0) Ur Specific [place] (1.001-1.035) Urine Protein (Neg - Trace) Urine Glucose (UA) (Negative) Urine Ketones (Negative) Urine Blood (Negative) Urine Nitrite (Negative) Urine Bilirubin (Negative) Urine Urobilinogen (Auto) (0.0-1.0) mg/dL Ur Leukocyte Esterase (Negative) Urine RBC (0-3) /hpf Urine WBC (0-5) /hpf Ur Squamous Epith Cells (0-5) /hpf Urine Bacteria (None) Hyaline Casts (0-1) /hpf Urine Opiates Screen (Negative) Urine Fentanyl Screen (Negative) Ur Barbiturates Screen (Negative) U Amphetamin/Meth Scrn (Negative) U Benzodiazepines Scrn (Negative) U Cocaine Metab Screen (Negative) U Marijuana (THC) Screen (Negative) HCG (Qual) Discharge Plan Plan Patient Disposition: Admit Acute Care w/in Hospital Disposition Comment: Dr. Jaramillo ICU Prescriptions/Referrals Prescriptions/Med Rec: No Action tizanidine 4 mg Capsule 4 mg PO TID alprazolam [Xanax] 1 mg Tablet 2 mg PO TID PRN (Reason: Anxiety) triamterene 50 mg Capsule 37.5 mg PO QDAY amlodipine 10 mg tablet 10 mg PO DAILY Patient Comments: TAKE 1 TABLET BY MOUTH EVERY DAY FOR 30 DAYS hydrocodone-acetaminophen 10-325 mg tablet 10 - 325 tab PO Q6HR Patient Comments: TAKE 1 TABLET BY MOUTH EVERY 6 HOURS metoprolol succinate 25 mg Tablet Extended Release 24 Hr 25 mg PO QDAY 30 Days Qty: 30 2RF temazepam 30 mg Capsule 30 mg PO DAILY thyroid (pork) [[place] Thyroid] 90 mg Tablet 90 mg PO DAILY azelastine [Astepro Allergy] 205.5 mcg (0.15 %) [place],Non-Aerosol 1 spray INTRANASAL PRN PRN (Reason: allergies) Referrals: Michael French MD [Primary Care Provider] - In 1 week Problem List Clinical Impression: Sepsis, Elevated troponin, Acute renal failure, Altered mental status, Fever, Influenza A, Hypercalcemia, Benzodiazepine dependence, Opioid dependence Patient/Caregiver Discharge Instructions Print Language: [place]ian Stand Alone Forms: Jeanna Award Info., Patient Portal Info Letter
[2024-06-04 13:13] LABS: Basophils % (Auto) 0 % (0-2.5); Eosinophils % (Auto) 0 % (0-10); Hematocrit 54.8 % (36.0-46.0); Hemoglobin 18.7 g/dL (12.0-16.0); Immature Granulocytes % (Auto) 0 % (0-0); Immature Granulocytes Auto 0.06 Thou/mm3 (0.00-0.00); Lactate (Lactic Acid) 4.3 mMol/L (0.4-2.0); Lymphocytes # (Auto) 0.5 Thou/mm3 (1.0-4.8); Lymphocytes % (Auto) 3 % (10-50); Mean Corpuscular HGB Conc 34.1 g/dl (31.0-37.0); Mean Corpuscular Hemoglobin 29.8 pg (25.0-35.0); Mean Corpuscular Volume 87 fL (80-100); Monocytes # (Auto) 1.5 Thou/mm3 (0.0-0.8); Monocytes % (Auto) 9 % (0-12); Neutrophils # (Auto) 15.6 Thou/mm3 (1.8-7.7); Neutrophils % (Auto) 88 % (37-80); Nucleated Red Blood Cell % 0 /100 WBC (0); Platelet Count 277 Thou/mm3 (140-440); RDW Standard Deviation 48.4 fL (36.4-46.3); Red Blood Count 6.27 Miln/mm3 (4.00-5.20); White Blood Count 17.7 Thou/mm3 (3.6-11.0)
[2024-06-04 13:24] LABS: HCG Titer if Positive Negative; INR 1.3 (0.9-1.3); Partial Thromboplastin Time 29.3 Seconds (22.0-36.0); Prothrombin Time 13.7 Seconds (9.0-12.2)
[2024-06-04 13:33] LABS: Alanine Aminotransferase 25 U/L (10-49); Albumin, Serum 5.6 gm/dL (3.4-4.8); Albumin/Globulin Ratio 1.4 (1.2-2.2); Alkaline Phosphatase 107 U/L (46-116); Anion Gap 21 (7-16); Aspartate Amino Transferase 66 U/L (0-34); BUN/Creatinine Ratio 22 Ratio (12-20); Bilirubin,Total 1.7 mg/dL (0.3-1.2); Blood Urea Nitrogen 82 mg/dL (9-23); Calcium 12.1 mg/dL (8.3-10.6); Calcium (Corrected) 12.1 mg/dL (8.5-10.1); Carbon Dioxide 17.8 mMol/L (20.0-31.0); Chloride 105 mMol/L (98-107); Creatinine (Component) 3.8 mg/dL (0.6-1.3); Globulin 4.1 gm/dL (2.3-3.5); Glucose 170 mg/dL (74-106); Magnesium 2.6 mg/dL (1.6-2.6); Osmolality,Calculated 315 (275-295); Potassium 3.3 mMol/L (3.4-5.1); Procalcitonin 1.63 ng/ml (0.0-0.49); Sodium 144 mMol/L (136-145); Total Protein 9.7 gm/dL (5.7-8.2); eGFR 12 See Note
[2024-06-04 13:35] LABS: Troponin I 1.676 ng/mL (0.0-0.045)
[2024-06-04] MEDS: LORazepam 2 MG/ML VIAL IVP ×2 (13:50→16:26)
[2024-06-04] MEDS: levETIRAcetam INJ 100 MG/ML VIAL 5ML 1000 MG IVP (13:51)
[2024-06-04] MEDS: SODIUM CHLORIDE 0.9% 1000 ML 1,000 ML 999 ML IV (13:52)
--- NOTE | 2024-06-04 13:52 | ESCONSULT_ITS ---
Tele Neuro Consultation Consultation Date 06/04/24 Laboratory-Coagulation Panel PT 13.7 Seconds (9.0-12.2) H 06/04/24 12:56 INR 1.3 (0.9-1.3) 06/04/24 12:56 APTT 29.3 Seconds (22.0-36.0) 06/04/24 12:56 Consultation Narrative [facility] TeleNeurology Consult Services Patient Name:???Cintia Reina Date of :???1955 Identification Number:??? 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 ?Recommendations: ?- Ativan 2mg IV now given ongoing seizures ?- Load with Keppra (40mg/kg) IV; continue 50mmg IV q12h ?- Empiric antibiotic coverage for bacterial meningitis, as well as IV acyclovir for possible HSV encephalitis; recommend ID consultation. ?- LP for CSF evaluation, including GS, cell counts, glucose, protein, meningoencephalitis PCR panel, VDRL, HSV 1&2, cultures, hold extra CSF ?- Stat EEG ?- Treatment of hyperthermia ?- MRI brain with and without contrast when clinically stabilized Our recommendations are outlined below. Recommendations: ? Stroke/Telemetry Floor ? Neuro Checks ? Bedside Swallow Eval ? DVT Prophylaxis ? IV Fluids, Normal Saline ? Head of Bed 30 Degrees ? Euglycemia and Avoid Hyperthermia (PRN Acetaminophen) Sign Out: ? Discussed with Emergency Department Provider Advanced Imaging: CTA Head and Neck Completed. LVO:No Patient in not a candidate for RENEE Metrics: Last Known Well: 06/03/2024 22:00:00 Dispatch Time: 06/04/2024 13:01:45 Arrival Time: 06/04/2024 12:51:00 Initial Response Time: 06/04/2024 13:04:25Symptoms: altered mental status, right gaze deviation. Initial patient interaction: 06/04/2024 13:26:33 NIHSS Assessment Completed: 06/04/2024 13:31:47Patient is not a candidate for Thrombolytic. Thrombolytic Medical Decision: 06/04/2024 13:31:48Patient was not deemed candidate for Thrombolytic because of following reasons: LKW outside 4.5 hr window. . I personally Reviewed the CT Head and it Showed no acute hemorrhage Primary Provider Notified of Diagnostic Impression and Management Plan on: 06/04/2024 13:30:00 History of Present Illness:Patient is a 68 year old Female. Patient was brought by EMS for symptoms of altered mental status, right gaze deviation. Patient is a 68 year old woman presenting via EMS due to altered mental status. Per EMS report from her , she was last at baseline at bedtime last night (about 10pm). She was lethargic this morning and didn't get out of bed, and when this continued he called EMS. On ED arrival she is noted to have altered mental status, right head version and right gaze deviation. She is febrile at 106F. Past Medical History: ?Hypertension ?Migraine Headaches ?There is no history of Diabetes Mellitus ?There is no history of Atrial Fibrillation ?There is no history of Stroke ?There is no history of Seizures Other PMH:? hypothyroidism, COPD, depression, fibromyalgia. Left lung mass. Medications: Anticoagulant use:??Unknown Antiplatelet use:?Unknown Reviewed EMR for current medications Other Medications Pertinent To Assessment Include: Xanax, norco, metoprolol, amlodipine, temazepam, armour thyroid, tizanidine Allergies:? Reviewed Description:?gabapentin, pregabalin Social History: Smoking: Former Alcohol Use: No Drug Use: No Family History: There is no family history of premature cerebrovascular disease pertinent to this consultation ROS : 14 Points Review of Systems was performed and was negative except mentioned in HPI. Past Surgical History: There Is No Surgical History Contributory To Today?s Visit NIHSS may not be reliable due to: ongoing seizure activity Examination: BP(/),?Pulse(112), 1A: Level of Consciousness - Arouses to minor stimulation?+ 1 1B: Ask Month and Age - Could Not Answer Either Question Correctly?+ 2 1C: Blink Eyes & Squeeze Hands - Performs 1 Task?+ 1 2: Test Horizontal Extraocular Movements - Forced Gaze Palsy: Cannot Be Overcome ?+ 2 3: Test Visual Zuniga - No Visual Loss?+ 0 4: Test Facial Palsy (Use Grimace if Obtunded) - Minor paralysis (flat nasolabial fold, smile asymmetry)?+ 1 5A: Test Left Arm Motor Drift - Some Effort Against [place]?+ 2 5B: Test Right Arm Motor Drift - No Effort Against [place]?+ 3 6A: Test Left Leg Motor Drift - Some Effort Against [place]?+ 2 6B: Test Right Leg Motor Drift - No Effort Against [place]?+ 3 7: Test Limb Ataxia (FNF/Heel-Rodrigues) - Does Not Understand?+ 0 8: Test Sensation - Normal; No sensory loss?+ 0 9: Test Language/Aphasia - Severe Aphasia: Fragmentary Expression, Inference Needed, Cannot Identify Materials?+ 2 10: Test Dysarthria - Mild-Moderate Dysarthria: Slurring but can be understood?+ 1 11: Test Extinction/Inattention - No abnormality?+ 0 NIHSS Score:?20 NIHSS Free Text :?Core temperature 106F ?Right head version, right gaze deviation, persistent clonic activity of left arm/leg, decreased movement of right arm/leg Pre-Morbid Modified [place] Scale:3 Points = Moderate disability; requiring some help, but able to walk without assistance Spoke with :?Juarez Shah DYNAMO TENDER at bedside This consult was conducted in real time using interactive audio and video technology. Patient was informed of the technology being used for this visit and agreed to proceed. Patient located in hospital and provider located at home/office setting. Patient is being evaluated for possible acute neurologic impairment and high probability of imminent or life-threatening deterioration. I spent total of 50 minutes providing care to this patient, including time for face to face visit via telemedicine, review of medical records, imaging studies and discussion of findings with providers, the patient and/or family. Dr Aline Roe [facility] For Inpatient follow-up with [facility] physician please call [facility] at . As we are not an outpatient service for any post hospital discharge needs please contact the hospital for assistance. If you have any questions for the [facility] physicians or need to reconsult for clinical or diagnostic changes please contact us via [facility] at .
[2024-06-04] MEDS: ONDANSETRON INJ 2 MG/ML INJ 2 ML 4 MG IV ×2 (13:53→17:28)
[2024-06-04] MEDS: ACETAMINOPHEN SUPP 650 MG SUPP PR (13:57)
--- NOTE | 2024-06-04 14:27 | XR_ITS ---
Examination: AP chest single view Technique 1 AP portable sitting chest single view Presented time: General a 27/10/2024 1541 hours Comparison May 13, 2024 INDICATIONS: History lung mass, 5.7 cm on chest x-ray May 13, 2024 FINDINGS: Pulmonary mass left upper lobe again noted, currently measuring 5.9 cm Normal heart size Mild elevation right hemidiaphragm No aspiration pneumonia Significant osteopenia IMPRESSION: Pulmonary neoplasm left upper lobe again noted
[2024-06-04 14:29] LABS: Collection Type, Urine Catheter
--- NOTE | 2024-06-04 14:33 | EDNOTE_ITS ---
Emergency Room Addendum <Tiffany Izquierdo - Last Filed: 06/04/24 16:23> Addendum Narrative: 1430: Care assumed from Juarez Shah. Past medical, surgical, social and family history reviewed. Vitals and home medications reviewed. I will assume the care of the patient at this time. Please refer to the emergency department record for history and examination from initial visit.? MDM Refer to Calvin Shah's note for details of initial evaluation. Patient has becoming more obtunded who is febrile leukocytosis white count of 17.7 hemoglobin is concentrated 18.7 chemistries revealed a sodium 144 potassium 3.3 carbon dioxide is low at 17.8 anion gap is 21 BUN is acutely of 82 and creatinine is 3.8 consistent with acute kidney injury or severe dehydration. Cockett osmolality is 315. Lactic acid is 4.3 calcium is quite elevated at 12.1 total bilirubin slightly elevated 1.7 troponin is elevated 1.676 catheter urine is unremarkable for any infection she has urine drug screen positive for both opiates and benzos which evidently a prescription and related and test is negative Patient had imaging with a chest x-ray which shows a significant left upper lobe and mass which has been present and was worked up with a negative biopsy in the past or nondiagnostic biopsy more likely. pH is 7.33 <Jesse Hyman MD - Last Filed: 06/04/24 16:28> Addendum Narrative: 1430: Care assumed from Juarez Shah. Past medical, surgical, social and family history reviewed. Vitals and home medications reviewed. I will assume the care of the patient at this time. Please refer to the emergency department record for history and examination from initial visit.? MDM Refer to Calvin Shah's note for details of initial evaluation. Patient has becoming more obtunded who is febrile leukocytosis white count of 17.7 hemoglobin is concentrated 18.7 chemistries revealed a sodium 144 potassium 3.3 carbon dioxide is low at 17.8 anion gap is 21 BUN is acutely of 82 and creatinine is 3.8 consistent with acute kidney injury or severe dehydration. Cockett osmolality is 315. Lactic acid is 4.3 calcium is quite elevated at 12.1 total bilirubin slightly elevated 1.7 troponin is elevated 1.676 catheter urine is unremarkable for any infection she has urine drug screen positive for both opiates and benzos which evidently a prescription and related and test is negative Patient had imaging with a chest x-ray which shows a significant left upper lobe and mass which has been present and was worked up with a negative biopsy in the past or nondiagnostic biopsy more likely. Because of patient's progressively worsening O2 sat and mental status acute kidney injury hypercalcemia elevated troponin non-ST elevation IA patient was electively intubated due to the trending in the wrong direction. Note cooling measures were taken soon after arrival. Patient was intubated with a 7.5 tube initially secured at 21 cm of the corner of the mouth but follow-up chest x-ray reveals the tube to be a little high so nurse was instructed to push that down a centimeter and a half at 1620 hrs. Also the OG tube was in position on the initial chest x-ray is read by myself. I contacted Dr. Jaramillo critical care discussed the case and she agrees admit the patient will come down and see the patient. Should be noted I spoke with the informed him the patient was critically ill he confirmed some of the medications and states that she was perfectly normal day ago. Preintubation the pH is 7.33. Care to ICU team and Dr. Jaramillo at 1627 hrs. See critical care note I spent at least 70 minutes on this patient not to mention the care done prior. Note an LP was attempted by CATHERINE Shah but was a dry tap and unsuccessful. Because of the hypercalcemia she will need to be scanned and it probably should do her head again because there is motion artifact on the initial 1. Dr. Jaramillo was informed MD Attestation <Jesse Hyman MD - Last Filed: 06/04/24 16:28> MD Attestation Physical Exam:? General:?? ?1425 Patient is obtundated Patient is breathing fast responds to pain only no verbal stimulation O2 sats are in the low to mid 90s on 6 L nasal cannula The vital signs were reviewed. Patient is febrile up to 106. Heart rates in the low 100s The patient is arousable painful stimuli only is nonverbal but immediately falls back to sleep and becomes inattentive. Patient had a spontaneous respirations that required no assistance at this time . O2 sats are adequate at the present time. Head & Scalp:?? ? Normocephalic, atraumatic. Face:?? ? Appears normal and is without lesions, deformity. No apparent trauma Ears:??? Left external pinna appears normal. Right external pinna appears normal. Eyes:?? ? The sclera is anicteric. The Left and Right Orbit/Lid/Conjunctiva appears normal without swelling, discoloration or injection. Nose: ? ? The nose is without deformity, discharge or tenderness; Throat: ? ? Appears normal.? The mucous membranes are pink and moist without exudates, redness or mass seen.? The tongue appears normal. Neck: The neck is supple and no apparent mass or adenopathy. Chest: The chest wall is normal in size and symmetry and has no chest wall tenderness or crepitus. The patient displays adequate ventilator effort without retractions, accessory muscle use. Patient has adequate air movement bilaterally with no wheezes and no rales. ? Cardiovascular: Regular rate and rhythm; No murmurs, rubs, or gallops; Gastrointestinal: The abdomen appears normal.? No obvious hernias or mass. The abdomen is soft and benign, non-distended, with no pain, no guarding and no rebound tenderness.? Bowel sounds are present and normal sounding.? No CVA tenderness. Genitourinary: No apparent injury or trauma. Back/Spine: No apparent injury or trauma Extremities/Musculoskeletal/lymphatic:? ? ? The bilateral upper and lower extremities are warm. There is no evidence of arterial? insufficiency. There is no evidence of venous insufficiency/edema. The patient is obtunded but displays no obvious focal deficits and spontaneously moves bilateral upper and lower extremities with painful or verbal stimuli There is no apparent, injury or trauma. Skin:? The skin is warm, dry and intact.? No rashes. No petechia. No purpura. No abnormal bruising.? The color is appropriate with no cyanosis. Mental status/Psychiatric: Mental status is obtunded no further evaluation can be made Neurological:? The patient is obtunded. The pupils are equal and reactive to light No obvious focal deficits. Patient responds to painful and verbal stimuli. Critical Care Time <Tiffany Izquierdo - Last Filed: 06/04/24 16:23> Critical Care Time Critical Care Time: Yes Total Critical Care Time (min.): 60 Attestation: The high probability of sudden, clinically significant deterioration in the patient?s condition required the highest level of my preparedness to intervene urgently. The services I provided to this patient were to treat and/or prevent clinically significant deterioration. Services included the following: chart data review, reviewing nursing notes and/or old charts, documentation time, business sales consultant collaboration regarding findings and treatment options, medication orders and management, direct patient care, vital sign assessments and ordering, interpreting and reviewing diagnostic studies and lab tests. Aggregate critical care time includes only time during which I was engaged in work directly related to the patient?s care, as described above, whether at bedside or elsewhere in the Emergency Department. It did not include time spent performing other reported procedures or the services of residents, students, nurses or physician assistants. ED Procedures <Tiffany Izquierdo - Last Filed: 06/04/24 16:23> Intubation Time out performed: Yes sedative: Etomidate Mg Given: 20 Laryngoscope: fiber optic video scope Assist Device Used: fiber optic device ET Tube Size: 7.5 ET Tube Uncuffed: No Tube Secured Depth (cm): 21 Tube Secured Location: lips Tube Placement Confirmation: visualized tube passing through cords, equal breath sounds bilaterally, no breath sounds over epigastrium and confirmation by capnometry Patient Tolerated Procedure: well and no complications Intubation Complications: none Vital Signs <Tiffany Izquierdo - Last Filed: 06/04/24 16:23> 3 06/04/24 13:57 06/04/24 15:47 06/04/24 15:54 06/04/24 16:13 BP 123/75 Pulse 93 92 Temp 106.0 F H 101.7 F H Temp Source Rectal Rectal Pulse Oximetry (%) 99 <Jesse Hyman MD - Last Filed: 06/04/24 16:28> 3 06/04/24 13:57 06/04/24 15:47 06/04/24 15:54 06/04/24 16:13 BP 123/75 Pulse 93 92 Temp 106.0 F H 101.7 F H Temp Source Rectal Rectal Pulse Oximetry (%) 99 Laboratory/Diagnostics <Tiffany Izquierdo - Last Filed: 06/04/24 16:23> Laboratory 06/04/24 12:56 06/04/24 12:56 Microbiology Microbiology: Microbiology 06/04/24 14:05 Blood Blood Culture - Pending 06/04/24 14:00 Blood Blood Culture - Pending 06/04/24 14:12 Urine,Catheterized Urine Culture - Pending Diagnostics Additional Studies: RADIOLOGY Procedure(s): CT angio stroke protocol Accession Number(s): [id number] cc: Juarez Shah NP; Wilman Davila MD; Michael French MD~ Examination: CTA carotids with intravenous contrast CTA brain, head with intravenous contrast. 2-D sagittal, coronal reconstructions. 3-D reconstructions. Exam date and time: June 04, 2024 1317 hrs. Indications: Stroke alert, onset focal neurologic deficit today since CTDI: vol (mGy) 17 DLP: (mGycm) : 453 Technique: Multiple CTA axial brain, head carotid images post intravenous contrast injection 75 cc, [id number]. 2-D sagittal, coronal reconstructions. 3-D reconstructions, 3-D post processing including vascular maximum intensity projection images. Low dose protocols were performed. One or more of the following dose reduction techniques were used; automated exposure control, adjustment of the mA and/or KV according to patient size, use of iterative reconstruction technique. Findings: 5 x 6 cm pulmonary mass, spiculated margins left upper lobe No significant common carotid carotid bifurcation or internal carotid artery stenoses Mildly dominant right vertebral artery with no critical stenoses Basilar artery posterior cerebral branches do fill Juxtasellar supraclinoid portions internal carotid arteries M1 segments middle cerebral arteries middle cerebral artery trifurcation vessels anterior cerebral vessels fill with no large vessel occlusions history Impression: 5 x 6 cm pulmonary mass spiculated margins left upper lobe, please see the chest x-ray report May 13, 2024 No significant neck arterial stenoses No cerebral large vessel arterial occlusions or thrombus 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 2-D sagittal coronal reconstructions Date and time of exam:June 04, 2024 1311 hrs. Indications: Stroke alert, onset focal neurologic deficit slurred speech today CTDI: vol (mGy):52.4 DLP: (mGycm):1099 Technique: Multiple CT axial sections of the brain have been obtained, 5 mm slice thickness. Contrast has not been administered. 2-D sagittal, coronal reconstructions have been obtained Low dose protocols were performed. One or more of the following dose reduction techniques were used; automated exposure control, adjustment of the mA and/or KV according to patient size, use of iterative reconstruction technique. Findings: The images are degraded by patient motion Ventricles are not enlarged No mass effect upon the ventricular system No acute hemorrhage either intra or extra-axially is noted Impression: The images are degraded by patient motion No gross hemorrhage mass effect or midline shift Dictated By: Wilman Davila MD - Procedure(s): XR chest 1V portable Accession Number(s): [id number] cc: Jesse Hyman MD; Wilman Davila MD; Michael French MD~ Examination: AP chest single view TECHNIQUE: AP portable upright chest single view Examination type: June 04, 2024 1546 hours Comparison June 04, 2024 1451 hours INDICATIONS: Hypoxic respiratory failure post intubation FINDINGS: Endotracheal tube tip 6 cm above Nathalie Pulmonary mass left upper lobe again noted Orogastric tube in the stomach the tip is below the level of the film No aspiration pneumonia IMPRESSION: Endotracheal tube tip 6 cm above Nathalie Dictated By: Wilman Davila MD Procedure(s): XR chest 1V portable Accession Number(s): [id number] cc: Jesse Hmyan MD; Wilman Davila MD; Michael French MD~ Examination: AP chest single view Technique 1 AP portable sitting chest single view Presented time: General a 27/10/2024 1541 hours Comparison May 13, 2024 INDICATIONS: History lung mass, 5.7 cm on chest x-ray May 13, 2024 FINDINGS: Pulmonary mass left upper lobe again noted, currently measuring 5.9 cm Normal heart size Mild elevation right hemidiaphragm No aspiration pneumonia Significant osteopenia IMPRESSION: Pulmonary neoplasm left upper lobe again noted Dictated By: Wilman Davila MD <Jesse Hyman MD - Last Filed: 06/04/24 16:28> Microbiology Microbiology: Microbiology 06/04/24 14:05 Blood Blood Culture - Pending 06/04/24 14:00 Blood Blood Culture - Pending 06/04/24 14:12 Urine,Catheterized Urine Culture - Pending Physical Exam <Tiffany Izquierdo - Last Filed: 06/04/24 16:23> Narrative Physical exam: Physical Exam:? General:?? ?1425 Patient is obtundated Patient is breathing fast responds to pain only no verbal stimulation O2 sats are in the low to mid 90s on 6 L nasal cannula The vital signs were reviewed. Patient is febrile up to 106. Heart rates in the low 100s The patient is arousable painful stimuli only is nonverbal but immediately falls back to sleep and becomes inattentive. Patient had a spontaneous respirations that required no assistance at this time . O2 sats are adequate at the present time. Head & Scalp:?? ? Normocephalic, atraumatic. Face:?? ? Appears normal and is without lesions, deformity. No apparent trauma Ears:??? Left external pinna appears normal. Right external pinna appears normal. Eyes:?? ? The sclera is anicteric. The Left and Right Orbit/Lid/Conjunctiva appears normal without swelling, discoloration or injection. Nose: ? ? The nose is without deformity, discharge or tenderness; Throat: ? ? Appears normal.? The mucous membranes are pink and moist without exudates, redness or mass seen.? The tongue appears normal. Neck: The neck is supple and no apparent mass or adenopathy. Chest: The chest wall is normal in size and symmetry and has no chest wall tenderness or crepitus. The patient displays adequate ventilator effort without retractions, accessory muscle use. Patient has adequate air movement bilaterally with no wheezes and no rales. ? Cardiovascular: Regular rate and rhythm; No murmurs, rubs, or gallops; Gastrointestinal: The abdomen appears normal.? No obvious hernias or mass. The abdomen is soft and benign, non-distended, with no pain, no guarding and no rebound tenderness.? Bowel sounds are present and normal sounding.? No CVA tenderness. Genitourinary: No apparent injury or trauma. Back/Spine: No apparent injury or trauma Extremities/Musculoskeletal/lymphatic:? ? ? The bilateral upper and lower extremities are warm. There is no evidence of arterial? insufficiency. There is no evidence of venous insufficiency/edema. The patient is obtunded but displays no obvious focal deficits and spontaneously moves bilateral upper and lower extremities with painful or verbal stimuli There is no apparent, injury or trauma. Skin:? The skin is warm, dry and intact.? No rashes. No petechia. No purpura. No abnormal bruising.? The color is appropriate with no cyanosis. Mental status/Psychiatric: Mental status is obtunded no further evaluation can be made Neurological:? The patient is obtunded. The pupils are equal and reactive to light No obvious focal deficits. Patient responds to painful and verbal stimuli.
[2024-06-04 14:38] LABS: Base Excess, Venous -5 (-3-3); O2 Saturation, Venous 90 % (96-97); PCO2, Venous 38 mmHg (36-56); PO2, Venous 65 mmHg (15-58); pH, Venous 7.33 (7.33-7.66)
[2024-06-04 14:42] LABS: Bacteria,Urine Rare; Bilirubin,Urine Negative (Negative); Blood,Urine Negative (Negative); Clarity,Urine Turbid (Clear/Hazy); Color,Urine Yellow (Lt Yel-Yel); Glucose, Urine Negative (Negative); Hyaline Casts,Urine < 1 /hpf (0-1); Ketones,Urine Trace (Negative); Leukocyte Esterase,Urine Negative (Negative); Nitrite,Urine Negative (Negative); Protein,Urine 2+ (Neg - Trace); RBC,Urine 2 /hpf (0-3); Specific Gravity,Urine 1.024 (1.001-1.035); Squamous Epithelial Cell,Urine < 1 /hpf (0-5); Urobilinogen,Urine Negative mg/dL (0.0-1.0); WBC,Urine 2 /hpf (0-5)
[2024-06-04 14:47] LABS: Amphetamine/Methamp Scrn,U Negative (Negative); Barbiturate Screen,Urine Negative (Negative); Benzodiazepines Screen,Urine Positive (Negative); Benzoylecgonine Screen, Ur Negative (Negative); Fentanyl Screen,Urine Negative (Negative); Opiate Screen,Urine Positive (Negative); THC Screen,Urine Negative (Negative)
[2024-06-04] MEDS: ETOMIDATE INJ 2 MG/ML VIAL 10 ML 20 MG IVP (15:34)
--- NOTE | 2024-06-04 15:41 | XR_ITS ---
Examination: AP chest single view TECHNIQUE: AP portable upright chest single view Examination type: June 04, 2024 1546 hours Comparison June 04, 2024 1451 hours INDICATIONS: Hypoxic respiratory failure post intubation FINDINGS: Endotracheal tube tip 6 cm above Nathalie Pulmonary mass left upper lobe again noted Orogastric tube in the stomach the tip is below the level of the film No aspiration pneumonia IMPRESSION: Endotracheal tube tip 6 cm above Nathalie
--- NOTE | 2024-06-04 15:48 | PC.NURSE ---
Time out prior to intubation performed at 1530. Etomidate administered at 1534 with intubation being completed by Dr. Hyman at 1539 with positivve color change; ET tube size 7.5 inserted at 21 gum. 18g OG placed at 60. Xray confirmation completed at 1552.
[2024-06-04 16:02] LABS: Reflex Lactate? Y
[2024-06-04] MEDS: ACYCLOVIR INJ 800 MG in SODIUM CHLORIDE 0.9% 100 ML 100 MG IV (16:09)
[2024-06-04] MEDS: RINGERS LACTATED 1779 ML IV (16:29)
[2024-06-04 16:38] LABS: Base Excess, Venous -8 (-3-3); Lactic Acid, 3 HR 3.4 mMol/L (0.4-2.0); O2 Saturation, Venous 67 % (96-97); PCO2, Venous 37 mmHg (36-56); PO2, Venous 39 mmHg (15-58); pH, Venous 7.29 (7.33-7.66)
[2024-06-04] MEDS: fentaNYL 2,500 MCG/250 ML BAG 2,500 MCG/250 ML BAG IV (17:16)
[2024-06-04] MEDS: MIDAZOLAM/NS 100 MG IVPB 100 MG/100 ML BAG IV (17:26)
--- NOTE | 2024-06-04 17:45 | PD.EDADDENDU ---
Emergency Room Addendum Addendum Narrative: Patient still in room 3 admitted to the ICU but the nurse approached me said the patient's blood pressure is now low I will going give an additional liter of fluid started on Levophed for some follow-up labs and I contacted Dr. Jaramillo critical care she is aware and agrees with the plan and will be coming to evaluate this patient soon the good news is patient is producing more urine.
[2024-06-04 18:03] LABS: Basophils % (Auto) 0 % (0-2.5); Eosinophils % (Auto) 0 % (0-10); Hematocrit 44.6 % (36.0-46.0); Hemoglobin 14.2 g/dL (12.0-16.0); Immature Granulocytes % (Auto) 1 % (0-0); Immature Granulocytes Auto 0.14 Thou/mm3 (0.00-0.00); Lactate (Lactic Acid) 5.2 mMol/L (0.4-2.0); Lymphocytes # (Auto) 1.3 Thou/mm3 (1.0-4.8); Lymphocytes % (Auto) 6 % (10-50); Mean Corpuscular HGB Conc 31.8 g/dl (31.0-37.0); Mean Corpuscular Hemoglobin 29.5 pg (25.0-35.0); Mean Corpuscular Volume 93 fL (80-100); Monocytes # (Auto) 2.5 Thou/mm3 (0.0-0.8); Monocytes % (Auto) 12 % (0-12); Neutrophils # (Auto) 16.9 Thou/mm3 (1.8-7.7); Neutrophils % (Auto) 81 % (37-80); Nucleated Red Blood Cell % 0 /100 WBC (0); Platelet Count 207 Thou/mm3 (140-440); Red Blood Count 4.82 Miln/mm3 (4.00-5.20); White Blood Count 20.9 Thou/mm3 (3.6-11.0)
[2024-06-04] MEDS: RINGERS LACTATED 1000 ML 1,000 ML 999 ML IV ×2 (18:17→23:44)
[2024-06-04 18:39] LABS: Alanine Aminotransferase 22 U/L (10-49); Albumin, Serum 3.8 gm/dL (3.4-4.8); Albumin/Globulin Ratio 1.4 (1.2-2.2); Alkaline Phosphatase 70 U/L (46-116); Anion Gap 17 (7-16); Aspartate Amino Transferase 59 U/L (0-34); BUN/Creatinine Ratio 24 Ratio (12-20); Blood Urea Nitrogen 72 mg/dL (9-23); Calcium 9.6 mg/dL (8.3-10.6); Calcium (Corrected) 9.8 mg/dL (8.5-10.1); Carbon Dioxide 20.7 mMol/L (20.0-31.0); Chloride 109 mMol/L (98-107); Creatine Kinase 417 U/L (34-171); Estimated Creatinine Clearance 19.8 mL/min (>60); Globulin 2.8 gm/dL (2.3-3.5); Glucose 157 mg/dL (74-106); Osmolality,Calculated 316 (275-295); Potassium 3.1 mMol/L (3.4-5.1); Sodium 147 mMol/L (136-145); Total Protein 6.6 gm/dL (5.7-8.2); eGFR 16 See Note
[2024-06-04 18:42] LABS: Troponin I 1.992 ng/mL (0.0-0.045)
[2024-06-04] MEDS: Norepinephrine/D5W 8mg/250ml 8 MG/250 ML BAG 7.654 MG IV (19:02)
[2024-06-04] MEDS: PIPER/TAZO 3.375 GM 50 ML IV (19:33)
[2024-06-04 20:21] LABS: Thyroid Stimulating Hormone 10.47 uIU/mL (0.55-4.78)
--- NOTE | 2024-06-04 20:29 | ESHP_ITS ---
Documentation for date of: 06/04/24 [facility] History of Present Illness Chief complaint: AMS History of present illness: Cintia Reina is 68 yr female with PMH of fibromyalgia, hypothyroidism, HTN, COPD, migraines, depression, 5cm pulmonary nodule who arrived to ED due to AMS. was with pt uppon arrival to who stated that as of last night she was in usual state of mind. Symptoms worsened this morning with declining mental status. Per ED, she was able to response to yes or no questions. Stroke alert was called due to right deviated gaze with fascicular twitching of the face. All other history obtained from chart review. head CT, CTA head/neck negative. EKG showed no ischemic changes. Normotensive, tachypnic 22, hyperthermia 106. Leukocytosis 17, Hb 18.7 sodium 144, potassium 3.3, bicarb 17, BUN 82/Cr 3.8, glucose 170, AG 21, LA 4.3, Ca 12. Tele neuro Suspected complex partial status epilepticus in the setting of severe hyperthermia. Per neuro recs, pt started on Ativan 2mg and Keppra loading dose. LP was unsuccessful. He was intubated and admitted to ICU due to acute resp failure 2/2 AMS, hyperthermia, electrolyte abnormalities. PMH: as noted above PSH: unknown famiy Hx: unknown Allergies: pregabalin, gabapentin (swelling) social: unkown Exam Vital Signs Temp Pulse Resp BP Pulse Ox O2 Del Method FiO2 100.4 F 147 H 12 94/75 97 Mechanical Ventilation 90 06/04/24 17:32 06/04/24 19:50 06/04/24 19:50 06/04/24 19:50 06/04/24 19:50 06/04/24 19:50 06/04/24 19:50 Narrative Exam General: well developed, elderly, intubated, slight distress Eyes: Pupils are equal, non reactive HEENT: Atraumatic, normocephalic. No JVD noted. Mucosa moist, biting ET tube Cardiovascular: Normal S1 and S2. Regular rate and rhythm. Respiratory: poor air movemnt, No wheezing or crackles heard. Abdomen: Soft, nontender, not distended, normal bowel sounds, Skin: cool to touch from cooling methods, dry, no rashes noted, abdominal scar Musculoskeletal: No gross injuries. +2 pedal edema Neuro: GCS8T Results: Labs 06/04/24 17:54 06/04/24 17:54 Labs: Short CBC 06/04/24 06/04/24 Range/Units 12:56 17:54 WBC 17.7 H 20.9 H (3.6-11.0) Thou/mm3 Hgb 18.7 H 14.2 D (12.0-16.0) g/dL Hct 54.8 H 44.6 D (36.0-46.0) % Plt Count 277 D 207 D (140-440) Thou/mm3 BMP 06/04/24 06/04/24 12:56 17:54 Sodium 144 147 H Potassium 3.3 L 3.1 L Chloride 105 109 H Carbon Dioxide 17.8 L 20.7 BUN 82 H 72 H Creatinine 3.8 H 3.0 H D Glucose 170 H 157 H Calcium 12.1 H 9.6 D Cardiac Enzymes 06/04/24 06/04/24 Range/Units 12:56 17:54 Total Creatine Kinase 417 H (34-171) U/L Troponin I 1.676 H* 1.992 H* D (0.0-0.045) ng/mL Liver Function 06/04/24 06/04/24 Range/Units 12:56 17:54 Total Bilirubin 1.7 H 1.0 D (0.3-1.2) mg/dL AST 66 H 59 H (0-34) U/L ALT 25 22 (10-49) U/L Alkaline Phosphatase 107 70 D (46-116) U/L Albumin 5.6 H 3.8 D (3.4-4.8) gm/dL Urine 06/04/24 Range/Units 14:12 Urine Color Yellow (Lt Yel-Yel) Urine Clarity Turbid A (Clear/Hazy) Urine pH 6.0 (5.0-7.0) Ur Specific [place] 1.024 (1.001-1.035) Urine Protein 2+ A (Neg - Trace) Urine Glucose (UA) Negative (Negative) ABG Interpretation ABG results: 06/04/24 06/04/24 14:35 16:22 VBG pH 7.33 7.29 L VBG pCO2 38 37 VBG pO2 65 H 39 D VBG Base Excess -5 L -8 L Quality Measures Quality Measures VTE prophylaxis Advance care planning discussed with:: other Medications Home Medications and Allergies Home Medications ?Medication ?Instructions ?Recorded ?Confirmed ?Type tizanidine 4 mg capsule 4 mg PO TID 07/02/17 09/23/23 History alprazolam 1 mg tablet (Xanax) 2 mg PO TID PRN Anxiety 01/27/22 09/23/23 History triamterene 50 mg capsule 37.5 mg PO QDAY 01/27/22 01/27/22 History amlodipine 10 mg tablet 10 mg PO DAILY 08/20/23 09/23/23 History hydrocodone 10 mg-acetaminophen 10 - 325 tab PO Q6HR 08/20/23 09/23/23 History 325 mg tablet azelastine 205.5 mcg (0.15 %) 1 spray intranasal PRN PRN 09/23/23 09/23/23 History nasal spray (Astepro Allergy) allergies temazepam 30 mg capsule 30 mg PO DAILY 09/23/23 09/23/23 History thyroid (pork) 90 mg tablet 90 mg PO DAILY 09/23/23 09/23/23 History (Elizabeth Thyroid) Allergies Allergy/AdvReac Type Severity Reaction Status Date / Time pregabalin Allergy Severe TONGUE Verified 04/04/23 10:58 SWELLING gabapentin Allergy Intermediate Swelling Verified 04/04/23 10:58 Visit Medications Aspirin (Aspirin Ec 81 Mg Tabec) 81 mg PO DAILY KANDI Stop: 07/04/24 18:44 Last Admin: 06/04/24 19:50 Dose: Not Given Fentanyl Citrate (Sublimaze Inj 2,500 Mcg/250 Ml Bag) 2,500 mcg in 250 mls @ 2.5 mls/hr IV .Q24H PRN; Protocol PRN Reason: PER PROTOCOL Stop: 06/09/24 17:09 Last Titration: 06/04/24 18:36 Dose: 75 mcg/hr, 7.5 mls/hr Norepinephrine/Dextrose (Levophed In D5w 8mg/250ml) 8 mg in 250 mls @ 7.654 mls/hr IV .Q24H PRN; Protocol PRN Reason: PER PROTOCOL Stop: 07/04/24 17:44 Last Titration: 06/04/24 19:37 Dose: 0.11 mcg/kg/min, 16.84 mls/hr Propofol (Diprivan Ivpb) 1,000 mg in 100 mls @ 2.449 mls/hr IV .Q24H PRN; Protocol PRN Reason: PER PROTOCOL Stop: 07/04/24 18:27 Piperacillin/Tazobactam/Dextrose (Zosyn) 50 mls @ 12.5 mls/hr IV Q12HR KANDI Stop: 06/12/24 08:59 Heparin Sodium/Dextrose (Heparin In D5w Ivpb) 25,000 unit in 250 mls @ 9.798 mls/hr IV .Q24H KANDI; Protocol Stop: 06/18/24 18:59 Potassium Phosphate (Pot Phos 15 Mmol In Ns 250 Ml) 15 mmol in 250 mls @ 62.5 mls/hr IV X1 ONE Stop: 06/04/24 23:00 Amiodarone HCl/Dextrose (Nexterone Ivpb) 150 mg in 100 mls @ 600 mls/hr IV .Q10M ONE Stop: 06/04/24 20:37 Amiodarone HCl/Dextrose (Nexterone Ivpb) 360 mg in 200 mls @ 33.333 mls/hr IV .Q6H ONE Stop: 06/05/24 02:27 Amiodarone HCl/Dextrose (Nexterone Ivpb) 360 mg in 200 mls @ 16.667 mls/hr IV .Q12H KANDI Stop: 06/05/24 20:27 Lactulose (Lactulose Syrup 20 Gm/30 Ml Udc) 10 gm PO QDAY PRN; Protocol PRN Reason: contstipation Stop: 07/05/24 08:59 Ondansetron HCl (Ondansetron Inj 2 Mg/Ml Inj 2 Ml) 4 mg IV Q4HR PRN PRN Reason: NAUSEA OR VOMITING Stop: 07/04/24 12:54 Last Admin: 06/04/24 17:28 Dose: 4 mg Pantoprazole Sodium (Pantoprazole Inj 40 Mg Vial) 40 mg IVP QDAY KANDI Stop: 07/04/24 20:59 Pharmacy Consult (Vancomycin Pharmacy To Dose 1 Each Each) 1 each IV QDAY PRN PRN Reason: PROTOCOL Stop: 07/04/24 18:44 Discontinued Medications Acetaminophen (Acetaminophen Supp 650 Mg Supp) 650 mg OR X1 ONE Stop: 06/04/24 13:05 Last Admin: 06/04/24 13:57 Dose: 650 mg Etomidate (Etomidate Inj 2 Mg/Ml Vial 10 Ml) 20 mg IVP X1 ONE Stop: 06/04/24 15:24 Last Admin: 06/04/24 15:34 Dose: 20 mg Sodium Chloride (Ns) 1,000 mls @ 999 mls/hr IV .Q1H1M ONE Stop: 06/04/24 14:06 Last Infusion: 06/04/24 15:05 Dose: Infused Ceftriaxone Sodium 2 gm/ (Sodium Chloride) 50 mls @ 100 mls/hr IV NOW ONE Stop: 06/04/24 14:02 Last Infusion: 06/04/24 14:40 Dose: Infused Acyclovir Sodium 800 mg/ (Sodium Chloride) 116 mls @ 100 mls/hr IV NOW ONE Stop: 06/04/24 14:33 Last Infusion: 06/04/24 17:27 Dose: Infused Lactated Ringer's (Lactated Ringers) 1,779 mls @ 1,779 mls/hr 30 ml/kg infuse over 60 min (1779 ml) IV .Q1H ONE Stop: 06/04/24 17:10 Last Infusion: 06/04/24 19:13 Dose: Infused Midazolam HCl (Versed Pf Inj In Ns Premix) 100 mg in 100 mls @ 1 mls/hr IV .Q24H PRN; Protocol PRN Reason: PER PROTOCOL Stop: 06/09/24 17:09 Last Titration: 06/04/24 18:27 Dose: 2 mg/hr, 2 mls/hr Lactated Ringer's (Lactated Ringers) 1,000 mls @ 999 mls/hr IV .Q1H1M ONE Stop: 06/04/24 19:16 Last Infusion: 06/04/24 19:26 Dose: Infused Piperacillin/Tazobactam/Dextrose (Zosyn) 50 mls @ 100 mls/hr IV X1 ONE Stop: 06/04/24 19:14 Last Admin: 06/04/24 19:33 Dose: 100 mls/hr Vancomycin/Sodium Chloride (Vancomycin/Ns 1 Gm Ivpb) 200 mls @ 120 mls/hr IV X1 ONE Stop: 06/04/24 20:24 Amiodarone HCl 150 mg/ (Dextrose) 103 mls @ 600 mls/hr IV X1 ONE Stop: 06/04/24 20:16 Levetiracetam (Levetiracetam Inj 100 Mg/Ml Vial 5ml) 1,000 mg IVP X1 ONE Stop: 06/04/24 12:58 Last Admin: 06/04/24 13:51 Dose: 1,000 mg Lorazepam (Lorazepam 2 Mg/Ml Vial) 2 mg IVP X1 ONE Stop: 06/04/24 13:33 Last Admin: 06/04/24 13:50 Dose: 2 mg Lorazepam (Lorazepam 2 Mg/Ml Vial) 2 mg IVP X1 ONE Stop: 06/04/24 16:24 Last Admin: 06/04/24 16:26 Dose: 2 mg Assessment & Plan Plan Cintia Reina is 68 yr female with PMH of fibromyalgia, hypothyroidism, HTN, COPD, migraines, depression, 5cm pulmonary nodule who arrived to ED due to AMS. was with pt uppon arrival to who stated that as of last night she was in usual state of mind. Symptoms worsened this morning with declining mental status. She was intubated and admitted to ICU due to acute resp failure 2/2 AMS, hyperthermia, electrolyte abnormalities. Neuro: #Sedated for mechanical ventillation due to #Acute encephalopathy Multifactorial: hyperthermia, hypokalemia, acidosis, infection, thyroid storm, meningitis, drug induced. Plan: hold home sedative meds, correct underlying electrolyte abnormalities, blood culture urine culture for infection source, TSH. LP was unsuccessful in ED, possible additional LP for rule out of meningitis. -propofol/fentanyl RAAS 0 -possibly start weaning sedation tomorrow and assess mentation CVS: # Elevated troponins 1.67 Ddx: NSTEMI II demand ischemia, NSTEMI, early STEMI EKG in ED not significant for any acute ischemic changes. No ST elevation. Difficult to assess for possible ACS on physical exam. No documentation of any chest pain. Plan: -Repeat EKG -Trend troponins x3 q6hr -Aspirin 81 mg -Heparin drip ACS protocol -Echo #Shock Ddx: Distributive, cardiogenic, obstructive, hypovolemic Most likely distributive and cardiogenic. At this time unable to identify source. Questionable underlying CAD? Patient was normotensive on admission well sometime in the ED. Now requiring vasopressors. -Levophed 0.3 mcg/kg/hr -Add vasopressin if have reached Levophed dose of 0.3 -Assess fluid status -Echo -MAP goal >65 #Hx htn Home medications: amlodipine 10mg daily, metoprolol succinate 25 mg daily -hold Pulm: #Mechanically ventillated #Acute respiratory failure 2/2 altered mental status Ddx: noted above Plan: -continue ventilation ? Wean sedation and assess mentation ? Continue AC mode with goal TV 380, RR 18, PEEP 5, FiO2 weaned down for goal 90% O2 -Repeat ABG 30 minutes after changing tidal volume -goal MV >4 #Hx COPD Hyperinflated lungs on chest x-ray, home medication albuterol, extensive smoking history. -hold #Hx pulmonary nodule 5cm. Pathology done in 2023 showed no evidence of malignancy. Possible necrosis/granuloma. -Patient recommend follow-up outpatient for repeat biopsy Renal: #NOHEMI Ddx: Most likely prerenal in (setting of hypoperfusion/dehydration) versus intrarenal, postrenal. -monitor IOs -avoid nephrotoxic agents -daily CMP #HAGMA Most likely due to elevated lactic acid and acute kidney injury AG 21, bicarb 17, VBG pH 7.29 -monitor CMP -tx underlying disorder -RR compensation #Elevated LA Ddx: Tissue hypoxia, DM, liver disesase, kidney disease LA 4.3 -trend q2hr -follow up CK to rule out rhabdo -volume resuscitation #Mild hypercalcemia Ddx: likely from dehydration/concentration, Less likely due to granuloma, PTHrP, hyperparathyrdoisim -fluids if responsive -daily CMP GI: # Hyperbilirubinemia #elevated AST Br 1.7 possibly due to dehydration, hemoconcentration. Continue to trend and reassess on physical exam when patient no longer sedated. -GI prophylaxis pantoprazole 40 daily Endo: #Hyperthermia Ddx: Drug-induced (serotonin syndrome, malignant hyperthermia, neuroleptic malignant syndrome), heatstroke, infection, thyroid storm. No home medications that maybe becausing NMS. Hydrocodone may cause serotonin syndrome if taken in combination with other serotonergic agents such as SNRIs. Temp 106 in ED -Started cooling measures -Acetaminophen 650 mg every 4?6 hours -CK pending -TSH pending #Hx hypothyroidism -90 mg armour thyroid -TSH pending Heme/Onc: # Leukocytosis WBC 17.7 -likely reactive, hemoconcentration? (unknown source currently.) -Daily CBC #Elevated RBC Ddx: Dehydration/hemoconcentration, less likely COPD, PCV -Daily CB #Hx pulmonary nodule -Follow-up outpatient with oncologist -Repeat chest CT imaging every 6 months to monitor growth ID: #Shock Meningitis? Unknown source at this time for sepsis. -as noted above -Start vancomycin and renally dosed Zosyn 3.375 BID -Blood cultures pending -Urine cultures pending -MRSA nasal swab pending -Cocci serology pending -LP? Health maintenance: Dispo: ICU for intubation. Resp failure 2/2 AMS DVT prophylaxis:Heparin drip CODE STATUS: Full code Diet: nPO The patient's management plan was discussed with my attending physician Dr. Jaramillo and Dr. Shanks. Yancy Bauman, PGY1
[2024-06-04] MEDS: VANCOMYCIN/NS 1 GM IVPB 200 ML IV (20:42)
[2024-06-04] MEDS: Heparin/D5w 25K 250 ML Ivpb 25,000 UNIT/250 ML BAG 9.798 UNIT IV (20:43)
[2024-06-04 20:46] LABS: Base Excess -5 (-3-3); HCO3 20 mEq/L (20-26); Inspired Oxygen, FIO2 80 %; O2 Saturation 100 % (91-98); PCO2 39 mmHg (32.0-48.0); PO2 349 mmHg (83-108); pH, Arterial 7.33 (7.35-7.45)
[2024-06-04 20:47] LABS: Allen Test Performed/OK; Puncture Site Left Radial
[2024-06-04] MEDS: AMIODARONE 150 MG IVPB 150 MG/100 ML BAG 600 MG IV (20:57)
[2024-06-04] MEDS: PANTOPRAZOLE INJ 40 MG VIAL IVP (20:58)
[2024-06-04 20:59] LABS: Reflex Lactate? Y
[2024-06-04] MEDS: AMIODARONE 360 MG IVPB 360 MG/200 ML BAG 33.333 MG IV (21:16)
[2024-06-04] MEDS: POTASSIUM CHLORIDE 10% 20 MEQ/15 ML UDC 40 MEQ GT (21:24)
[2024-06-04] MEDS: ASPIRIN 300 MG SUPP PR (21:24)
[2024-06-04] MEDS: PROPOFOL 1,000 MG IVPB 1,000 MG/100 ML VIAL 2.449 MG IV (21:29)
[2024-06-04] MEDS: fentaNYL 2,500 MCG/250 ML BAG 2,500 MCG/250 ML BAG 12.5 MCG IV (21:30)
[2024-06-04 21:31] LABS: Phosphorous 4.8 mg/dL (2.4-5.1)
[2024-06-05] VITALS (49 sets, daily range): BP systolic 90–155; BP diastolic 56–94; PULSE 59–88; RESP 16–28; TEMP 36.1–37.2; O2SAT 95–100
[2024-06-05 00:37] LABS: Lactate (Lactic Acid) 2.6 mMol/L (0.4-2.0)
[2024-06-05 01:10] LABS: Alanine Aminotransferase 22 U/L (10-49); Albumin, Serum 3.5 gm/dL (3.4-4.8); Albumin/Globulin Ratio 1.3 (1.2-2.2); Alkaline Phosphatase 63 U/L (46-116); Anion Gap 13 (7-16); BUN/Creatinine Ratio 27 Ratio (12-20); Bilirubin,Total 0.8 mg/dL (0.3-1.2); Blood Urea Nitrogen 69 mg/dL (9-23); Calcium 9.4 mg/dL (8.3-10.6); Calcium (Corrected) 9.8 mg/dL (8.5-10.1); Carbon Dioxide 19.4 mMol/L (20.0-31.0); Chloride 110 mMol/L (98-107); Creatinine (Component) 2.6 mg/dL (0.6-1.3); Estimated Creatinine Clearance 22.9 mL/min (>60); Globulin 2.8 gm/dL (2.3-3.5); Glucose 184 mg/dL (74-106); Osmolality,Calculated 308 (275-295); Sodium 142 mMol/L (136-145); Total Protein 6.3 gm/dL (5.7-8.2); eGFR 19 See Note
[2024-06-05 01:14] LABS: Troponin I 0.874 ng/mL (0.0-0.045)
[2024-06-05 02:08] LABS: Potassium 3.1 mMol/L (3.4-5.1)
[2024-06-05 02:09] LABS: Aspartate Amino Transferase 44 U/L (0-34)
[2024-06-05 02:47] LABS: Parathyroid Hormone Intact 135.5 pg/ml (18.5-88.0)
[2024-06-05] MEDS: POTASSIUM CHLORIDE 10% 20 MEQ/15 ML UDC 40 MEQ GT ×2 (03:12→11:32)
[2024-06-05] MEDS: AMIODARONE 360 MG IVPB 360 MG/200 ML BAG 16.667 MG IV ×2 (03:13→15:22)
[2024-06-05 03:35] LABS: Reflex Lactate? Y
[2024-06-05 03:38] LABS: Basophils % (Auto) 0 % (0-2.5); Eosinophils % (Auto) 0 % (0-10); Hemoglobin 13.1 g/dL (12.0-16.0); Immature Granulocytes % (Auto) 1 % (0-0); Immature Granulocytes Auto 0.08 Thou/mm3 (0.00-0.00); Lymphocytes # (Auto) 2.4 Thou/mm3 (1.0-4.8); Lymphocytes % (Auto) 14 % (10-50); Mean Corpuscular HGB Conc 32.8 g/dl (31.0-37.0); Mean Corpuscular Hemoglobin 29.8 pg (25.0-35.0); Mean Corpuscular Volume 91 fL (80-100); Monocytes # (Auto) 1.6 Thou/mm3 (0.0-0.8); Monocytes % (Auto) 9 % (0-12); Neutrophils # (Auto) 13.5 Thou/mm3 (1.8-7.7); Neutrophils % (Auto) 77 % (37-80); Nucleated Red Blood Cell % 0 /100 WBC (0); Platelet Count 160 Thou/mm3 (140-440); RDW Standard Deviation 51.9 fL (36.4-46.3); White Blood Count 17.6 Thou/mm3 (3.6-11.0)
[2024-06-05] MEDS: RINGERS LACTATED 1000 ML 1,000 ML 500 ML IV (03:48)
[2024-06-05 03:54] LABS: Lactic Acid, 3 HR 1.7 mMol/L (0.4-2.0)
[2024-06-05 04:00] LABS: Alanine Aminotransferase 18 U/L (10-49); Albumin, Serum 3.4 gm/dL (3.4-4.8); Albumin/Globulin Ratio 1.3 (1.2-2.2); Alkaline Phosphatase 63 U/L (46-116); Anion Gap 12 (7-16); Aspartate Amino Transferase 37 U/L (0-34); BUN/Creatinine Ratio 31 Ratio (12-20); Bilirubin,Total 0.6 mg/dL (0.3-1.2); Blood Urea Nitrogen 68 mg/dL (9-23); Calcium 8.9 mg/dL (8.3-10.6); Calcium (Corrected) 9.4 mg/dL (8.5-10.1); Carbon Dioxide 20.1 mMol/L (20.0-31.0); Cardiac Risk Estimate 4.1 RATIO (3.7-5.6); Chloride 112 mMol/L (98-107); Cholesterol 148 mg/dL (132-200); Creatinine (Component) 2.2 mg/dL (0.6-1.3); Estimated Creatinine Clearance 27.1 mL/min (>60); Globulin 2.6 gm/dL (2.3-3.5); Glucose 157 mg/dL (74-106); HDL Cholesterol 36 mg/dL (40-60); LDL Cholesterol,Calculated 89 mg/dL (0-130); Osmolality,Calculated 309 (275-295); Potassium 2.9 mMol/L (3.4-5.1); Sodium 144 mMol/L (136-145); Triglycerides 116 mg/dL (30-150); eGFR 24 See Note
[2024-06-05 04:16] LABS: Partial Thromboplastin Time 72.3 Seconds (22.0-36.0)
[2024-06-05 05:12] LABS: Base Excess -3 (-3-3); HCO3 22 mEq/L (20-26); Inspired Oxygen, FIO2 50 %; O2 Saturation 100 % (91-98); PCO2 38 mmHg (32.0-48.0); PO2 193 mmHg (83-108); pH, Arterial 7.38 (7.35-7.45)
[2024-06-05 05:14] LABS: Allen Test Performed/OK; Puncture Site Left Radial
[2024-06-05 05:36] LABS: Path Review Blood Smear Sent to Pathologist
[2024-06-05] MEDS: THYROID 30 MG TABLET 90 MG PO (05:50)
[2024-06-05] MEDS: PANTOPRAZOLE INJ 40 MG VIAL IVP (08:46)
[2024-06-05] MEDS: ASPIRIN 81 MG CHEW PO (08:47)
[2024-06-05] MEDS: PIPER/TAZO 3.375 GM 50 ML IV ×2 (08:47→20:34)
[2024-06-05 09:16] LABS: Troponin I 0.656 ng/mL (0.0-0.045)
[2024-06-05 09:19] LABS: Potassium 3.5 mMol/L (3.4-5.1)
--- NOTE | 2024-06-05 10:09 | XR_ITS ---
Examination: CT chest, without intravenous contrast. Sagittal and coronal 2-D reconstructions. Exam date and time: June 05, 2024 1046 hours COMPARISON: September 23, 2023 INDICATIONS: History large pulmonary mass left upper lobe, biopsy on September 23, 2023 Hypoxic respiratory failure postintubation CTDI:vol (mGy) 13.8 DLP: (mGycm) 512 Technique: Multiple 3.0 mm axial sections of the chest to been obtained. Bone and lung density settings are obtained. Sagittal and coronal 2-D reconstructions have been obtained. Low dose protocols were performed. One or more of the following dose reduction techniques were used; automated exposure control, adjustment of the mA and/or KV according to patient size, use of iterative reconstruction technique. Findings: No thoracic aortic aneurysmal dilatation No paratracheal tracheobronchial or bronchopulmonary adenopathy Pulmonary mass left upper lobe measures 5.5 x 5.2 cm compared to 4.4 x [address] chest August 19, 2023 4 mm pleural-based pulmonary nodule right upper lobe No lobar pneumonia or pulmonary edema Mild intrahepatic biliary tract dilatation Absent gallbladder Common bile duct 12 mm No pancreatic mass No hydronephrosis Moderate osteopenia IMPRESSION: Enlarging pulmonary mass left upper lobe compared to CT chest August 19, 2023
--- NOTE | 2024-06-05 11:24 | PC.SS ---
LABOR RELATIONS WORKER conducted phone contact with the patient?s spouse, Vaughn Reina ; to conduct initial assessment and discuss discharge planning. Patient is currently intubated and admitted to the ICU due to acute respiratory failure. Patient resides at home with spouse. Patient utilizes a walker to assist with ambulation. Patient does not utilize home oxygen. Patient possesses ability to complete ADL?s independently. Patient?s medical surrogate decision maker is spouse, Vaughn Reina. Patient?s PCP is Dr. French. Patient does not possess specialty providers. Patient utilizes [facility] for medication services. Patient is not diabetic and does not participate with dialysis. Plan is for the patient to discharge home. Patient?s spouse will provide patient with transportation home. No discharge needs identified at current time. No further intervention required at this time, social worker palliative care will be available to address any further concerns. Next of Kin: Vaughn Reina D/C Plan: Home
[2024-06-05] MEDS: VANCOMYCIN/NS 500 MG IVPB 100 ML 120 MG IV (11:33)
[2024-06-05 14:51] LABS: Cocci Serology, IgM Negative (Negative)
--- NOTE | 2024-06-05 15:16 | PC.SS ---
Update: Patient has been extubated.
[2024-06-05] MEDS: HEPARIN SOD INJ 5000 UNIT/ML VIAL SC ×2 (15:23→21:00)
--- NOTE | 2024-06-05 15:36 | ESPR_ITS ---
Documentation for date of: 06/05/24 Subjective Subjective Interval history: 06/02: Patient seen and examined at bedside. Overnight patient had urine out 1L and received 2L bolus fluids after cheetah was done. Showing pt to be fluid responsive. This morning she is following commands. ABG improved with pH 7.38, pCO2 38 and MV 8-9. Sedation was turned off and passed SBT. Patient was successfully extubated this afternoon. She is alert and oriented able to communicate however cannot recall yesterday's events. Troponins down trended therefore heparin IV discontinued and will continue with DVT prophylaxis dose. Repleted with 40M EQ potassium. Creatinine downtrending to 2.2 today. Patient will need physical therapy outpatient due to history of recurrent falls. WBC still elevated but improved since yesterday. Today 17.6. Continue Vanco and renally dosed Zosyn for empiric treatment as blood cultures and urine cultures are still pending. Exam Vital Signs Temp Pulse Resp BP Pulse Ox O2 Del Method FiO2 97.4 F 88 24 H 143/77 H 95 Mechanical Ventilation 35 06/05/24 12:00 06/05/24 14:00 06/05/24 14:00 06/05/24 14:00 06/05/24 14:00 06/05/24 07:00 06/05/24 12:00 Narrative Exam General: well developed, elderly, cooperative Eyes: Pupils are equal, non reactive HEENT: Atraumatic, normocephalic. No JVD noted. MMM Cardiovascular: Normal S1 and S2. Regular rate and rhythm. Respiratory: No wheezing or crackles heard. Abdomen: Soft, nontender, not distended, normal bowel sounds, Skin: cool to touch from cooling methods, dry, no rashes noted, abdominal scar Musculoskeletal: No gross injuries. Neuro: GCS15 Objective Labs 06/06/24 04:51 06/06/24 04:51 Labs: Laboratory Results - last 24 hr 06/04/24 06/04/24 06/04/24 00:31 16:22 17:54 WBC 20.9 H RBC 4.82 Hgb 14.2 D Hct 44.6 D MCV 93 MCH 29.5 MCHC 31.8 RDW Std Deviation 53.0 H Plt Count 207 D Neut % (Auto) 81 H Lymph % (Auto) 6 L [place] % (Auto) 12 Eos % (Auto) 0 Baso % (Auto) 0 Neut # (Auto) 16.9 H Lymph # (Auto) 1.3 [place] # (Auto) 2.5 H Eos # (Auto) 0.0 Baso # (Auto) 0.0 Immature Gran # (Auto) 0.14 H Absolute Nucleated RBC 0.00 Immature Gran % 1 H Nucleated RBC % 0 Smear Path Review Sent to Pathologist APTT Puncture Site ABG pH ABG pCO2 ABG pO2 ABG HCO3 ABG O2 Saturation ABG Base Excess VBG pH 7.29 L VBG pCO2 37 VBG pO2 39 D VBG O2 Sat (Kevin) 67 L VBG Base Excess -8 L FiO2 Sodium 147 H Potassium 3.1 L Chloride 109 H Carbon Dioxide 20.7 Anion Gap 17 H BUN 72 H Creatinine 3.0 H D Estim Creat Clear Calc 19.8 L eGFR 16 L BUN/Creatinine Ratio 24 H Glucose 157 H Calculated Osmolality 316 H Lactic Acid 2.6 H 3.4 H 5.2 H* Calcium 9.6 D Corrected Calcium 9.8 D Phosphorus Magnesium Total Bilirubin 1.0 D AST 59 H ALT 22 Alkaline Phosphatase 70 D Total Creatine Kinase 417 H Troponin I 1.992 H* D Total Protein 6.6 Albumin 3.8 D Globulin 2.8 Albumin/Globulin Ratio 1.4 Triglycerides Cholesterol LDL Cholesterol, Calc HDL Cholesterol Cholesterol/HDL Ratio TSH 10.47 H PTH Intact Coccidioides IgM Ab 06/04/24 06/04/24 06/05/24 20:34 20:55 00:31 WBC RBC Hgb Hct MCV MCH MCHC RDW Std Deviation Plt Count Neut % (Auto) Lymph % (Auto) [place] % (Auto) Eos % (Auto) Baso % (Auto) Neut # (Auto) Lymph # (Auto) [place] # (Auto) Eos # (Auto) Baso # (Auto) Immature Gran # (Auto) Absolute Nucleated RBC Immature Gran % Nucleated RBC % Smear Path Review APTT Puncture Site Left Radial ABG pH 7.33 L ABG pCO2 39 ABG pO2 349 H ABG HCO3 20 ABG O2 Saturation 100 H ABG Base Excess -5 L VBG pH VBG pCO2 VBG pO2 VBG O2 Sat (Kevin) VBG Base Excess FiO2 80 Sodium 142 Potassium 3.1 L Chloride 110 H Carbon Dioxide 19.4 L Anion Gap 13 BUN 69 H Creatinine 2.6 H Estim Creat Clear Calc 22.9 L eGFR 19 L BUN/Creatinine Ratio 27 H Glucose 184 H Calculated Osmolality 308 H Lactic Acid 2.0 Calcium 9.4 Corrected Calcium 9.8 Phosphorus 4.8 Magnesium Total Bilirubin 0.8 AST 44 H ALT 22 Alkaline Phosphatase 63 Total Creatine Kinase Troponin I 0.874 H* D Total Protein 6.3 Albumin 3.5 Globulin 2.8 Albumin/Globulin Ratio 1.3 Triglycerides Cholesterol LDL Cholesterol, Calc HDL Cholesterol Cholesterol/HDL Ratio TSH PTH Intact Coccidioides IgM Ab Negative 06/05/24 06/05/24 06/05/24 01:20 03:23 03:46 WBC 17.6 H RBC 4.40 Hgb 13.1 Hct 40.0 MCV 91 MCH 29.8 MCHC 32.8 RDW Std Deviation 51.9 H Plt Count 160 D Neut % (Auto) 77 Lymph % (Auto) 14 [place] % (Auto) 9 Eos % (Auto) 0 Baso % (Auto) 0 Neut # (Auto) 13.5 H Lymph # (Auto) 2.4 [place] # (Auto) 1.6 H Eos # (Auto) 0.0 Baso # (Auto) 0.0 Immature Gran # (Auto) 0.08 H Absolute Nucleated RBC 0.00 Immature Gran % 1 H Nucleated RBC % 0 Smear Path Review APTT 72.3 H D Puncture Site ABG pH ABG pCO2 ABG pO2 ABG HCO3 ABG O2 Saturation ABG Base Excess VBG pH VBG pCO2 VBG pO2 VBG O2 Sat (Kevin) VBG Base Excess FiO2 Sodium 144 Potassium 2.9 L Chloride 112 H Carbon Dioxide 20.1 Anion Gap 12 BUN 68 H Creatinine 2.2 H Estim Creat Clear Calc 27.1 L eGFR 24 L BUN/Creatinine Ratio 31 H Glucose 157 H Calculated Osmolality 309 H Lactic Acid 1.7 Calcium 8.9 Corrected Calcium 9.4 Phosphorus 3.0 Magnesium 2.0 Total Bilirubin 0.6 AST 37 H ALT 18 Alkaline Phosphatase 63 Total Creatine Kinase Troponin I Total Protein 6.0 Albumin 3.4 Globulin 2.6 Albumin/Globulin Ratio 1.3 Triglycerides 116 Cholesterol 148 LDL Cholesterol, Calc 89 HDL Cholesterol 36 L Cholesterol/HDL Ratio 4.1 TSH PTH Intact 135.5 H Coccidioides IgM Ab 06/05/24 06/05/24 05:05 06:13 WBC RBC Hgb Hct MCV MCH MCHC RDW Std Deviation Plt Count Neut % (Auto) Lymph % (Auto) [place] % (Auto) Eos % (Auto) Baso % (Auto) Neut # (Auto) Lymph # (Auto) [place] # (Auto) Eos # (Auto) Baso # (Auto) Immature Gran # (Auto) Absolute Nucleated RBC Immature Gran % Nucleated RBC % Smear Path Review APTT Puncture Site Left Radial ABG pH 7.38 ABG pCO2 38 ABG pO2 193 H D ABG HCO3 22 ABG O2 Saturation 100 H ABG Base Excess -3 VBG pH VBG pCO2 VBG pO2 VBG O2 Sat (Kevin) VBG Base Excess FiO2 50 Sodium Potassium 3.5 D Chloride Carbon Dioxide Anion Gap BUN Creatinine Estim Creat Clear Calc eGFR BUN/Creatinine Ratio Glucose Calculated Osmolality Lactic Acid Calcium Corrected Calcium Phosphorus Magnesium Total Bilirubin AST ALT Alkaline Phosphatase Total Creatine Kinase Troponin I 0.656 H* D Total Protein Albumin Globulin Albumin/Globulin Ratio Triglycerides Cholesterol LDL Cholesterol, Calc HDL Cholesterol Cholesterol/HDL Ratio TSH PTH Intact Coccidioides IgM Ab ABG Interpretation ABG results: 06/04/24 06/04/24 06/04/24 14:35 16:22 20:34 ABG pH 7.33 L ABG pCO2 39 ABG pO2 349 H ABG HCO3 20 ABG O2 Saturation 100 H ABG Base Excess -5 L VBG pH 7.33 7.29 L VBG pCO2 38 37 VBG pO2 65 H 39 D VBG Base Excess -5 L -8 L 06/05/24 05:05 ABG pH 7.38 ABG pCO2 38 ABG pO2 193 H D ABG HCO3 22 ABG O2 Saturation 100 H ABG Base Excess -3 VBG pH VBG pCO2 VBG pO2 VBG Base Excess Quality Measures Quality Measures VTE prophylaxis Advance care planning discussed with:: spouse Assessment & Plan Assessment Current Active Medications: Generic Name Dose Route Start Last Admin Trade Name Freq PRN Reason Stop Dose Admin Aspirin 81 mg 06/05/24 09:00 06/05/24 08:47 Aspirin 81 Mg Chew PO 07/05/24 08:59 81 mg QDAY KANDI Administration Heparin Sodium (Porcine) 5,000 unit 06/05/24 14:00 Heparin Sod Inj 5000 Unit/Ml Vial SC 06/19/24 13:59 Q8HR KANDI Norepinephrine/Dextrose 8 mg in 250 mls @ 7.654 mls/hr 06/04/24 17:45 06/05/24 04:30 Levophed In D5w 8mg/250ml IV 07/04/24 17:44 0 mcg/kg/min .Q24H PRN 0 mls/hr PER PROTOCOL Titration Protocol 0.05 MCG/KG/MIN Piperacillin/Tazobactam/Dextrose 50 mls @ 12.5 mls/hr 06/05/24 09:00 06/05/24 08:47 Zosyn IV 06/12/24 08:59 12.5 mls/hr Q12HR KANDI Administration Amiodarone HCl/Dextrose 360 mg in 200 mls @ 16.667 mls/hr 06/05/24 02:28 06/05/24 03:13 Nexterone Ivpb IV 06/06/24 02:27 16.667 mls/hr .Q12H KANDI Administration Propofol 1,000 mg in 100 mls @ 2.449 mls/hr 06/04/24 21:12 06/05/24 09:35 Diprivan Ivpb IV 07/04/24 18:27 0 mcg/kg/min .Q24H PRN 0 mls/hr PER PROTOCOL Titration Protocol 5 MCG/KG/MIN Fentanyl Citrate 2,500 mcg in 250 mls @ 2.5 mls/hr 06/04/24 21:12 06/05/24 12:00 Sublimaze Inj 2,500 Mcg/250 Ml Bag IV 06/09/24 17:09 0 mcg/hr .Q24H PRN 0 mls/hr PER PROTOCOL Titration Protocol 25 MCG/HR Lactulose 10 gm 06/04/24 18:22 Lactulose Syrup 20 Gm/30 Ml Udc PO 07/05/24 08:59 QDAY PRN contstipation Protocol Ondansetron HCl 4 mg 06/04/24 12:55 06/04/24 17:28 Ondansetron Inj 2 Mg/Ml Inj 2 Ml IV 07/04/24 12:54 4 mg Q4HR PRN Administration NAUSEA OR VOMITING Pantoprazole Sodium 40 mg 06/04/24 21:00 06/05/24 08:46 Pantoprazole Inj 40 Mg Vial IVP 07/04/24 20:59 40 mg QDAY KANDI Administration Pharmacy Consult 1 each 06/04/24 18:45 Vancomycin Pharmacy To Dose 1 Each Each IV 07/04/24 18:44 QDAY PRN PROTOCOL Thyroid 90 mg 06/05/24 06:00 06/05/24 05:50 Thyroid 30 Mg Tablet PO 07/05/24 05:59 90 mg ACBR KANDI Administration Plan Cintia Reina is 68 yr female with PMH of fibromyalgia, hypothyroidism, HTN, COPD, migraines, depression, 5cm pulmonary nodule who arrived to ED due to AMS. was with pt uppon arrival to who stated that as of last night she was in usual state of mind. Symptoms worsened this morning with declining mental status. She was intubated and admitted to ICU due to acute resp failure 2/2 AMS, hyperthermia, electrolyte abnormalities. Neuro: #s/p sedation #Acute encephalopathy-resolved Multifactorial: hyperthermia, hypokalemia, acidosis, infection, thyroid storm, meningitis, drug induced. Plan: hold home sedative meds, correct underlying electrolyte abnormalities, blood culture urine culture for infection source, TSH. LP was unsuccessful in ED, possible additional LP for rule out of meningitis. -off sedation and extubated today 06/05 CVS: #Elevated troponins-downtrending Peaked at 1.992 Ddx: NSTEMI II demand ischemia, NSTEMI, early STEMI EKG in ED not significant for any acute ischemic changes. No ST elevation. Difficult to assess for possible ACS on physical exam. No documentation of any chest pain. Plan: -continue Aspirin 81 mg -stop Heparin drip ACS protocol -Echo #Shock-resolved Ddx: Distributive, cardiogenic, obstructive, hypovolemic Most likely distributive and cardiogenic. At this time unable to identify source. Questionable underlying CAD? Patient was normotensive on admission well sometime in the ED. Now requiring vasopressors. -off pressors #Hx htn Home medications: amlodipine 10mg daily, metoprolol succinate 25 mg daily -hold -med rec pending Pulm: #s/p Mechanical ventilation #Acute respiratory failure (resolved) 2/2 altered mental status (resolved) Ddx: noted above Plan: -pt was extubated today after SBT #Hx COPD Hyperinflated lungs on chest x-ray, home medication albuterol, extensive smoking history. -hold albuterol due hypokalemia #Hx pulmonary nodule 5cm. Pathology done in 2023 showed no evidence of malignancy. Possible necrosis/granuloma. -repeat nodule biopsy -f/u with CT chest Renal: #NOHEMI Ddx: Most likely prerenal in (setting of hypoperfusion/dehydration) versus intrarenal, postrenal. Pt it s/p 2L bolus -monitor IOs -avoid nephrotoxic agents -daily CMP #HAGMA-resolved Most likely due to elevated lactic acid and acute kidney injury AG 21, bicarb 17, VBG pH 7.29 #Elevated LA-resolved Ddx: Tissue hypoxia, DM, liver disesase, kidney disease #Mild hypercalcemia-resolved Ddx: likely from dehydration/concentration, Less likely due to granuloma, PTHrP, hyperparathyrdoisim -daily CMP GI: #Hyperbilirubinemia-resolved #elevated AST Br 1.7 possibly due to dehydration, hemoconcentration. Continue to trend and reassess on physical exam when patient no longer sedated. -GI prophylaxis pantoprazole 40 daily Endo: #Hyperthermia-resolved Ddx: Drug-induced (serotonin syndrome, malignant hyperthermia, neuroleptic malignant syndrome), heatstroke, infection, thyroid storm. No home medications that maybe becausing NMS. Hydrocodone may cause serotonin syndrome if taken in combination with other serotonergic agents such as SNRIs. Temp 106 in ED -Started cooling measures -Acetaminophen 650 mg every 4?6 hours #Hx hypothyroidism -90 mg armour thyroid -TSH 10.47 -recommended that patient change to levothyroxine -f/u outpatient Heme/Onc: # Leukocytosis WBC 17.7 -likely reactive, hemoconcentration? (unknown source currently.) -Daily CBC #Elevated RBC-resolved Ddx: Dehydration/hemoconcentration, less likely COPD, PCV -Daily CB #Hx pulmonary nodule -Follow-up outpatient with oncologist -Repeat chest CT imaging every 6 months to monitor growth ID: #Shock -resolved Meningitis? Unknown source at this time for sepsis. -as noted above -Start vancomycin and renally dosed Zosyn 3.375 BID -Blood cultures pending -Urine cultures pending -MRSA nasal swab pending -Cocci serology pending Health maintenance: Dispo: ICU, extubated 06/05 DVT prophylaxis:Heparin drip 5.000 TID CODE STATUS: Full code Diet: regular The patient's management plan was discussed with my attending physician Dr. Jaramillo and Dr. Shanks. Yancy Bauman, PGY1 Attending Provider Attestation/Addendum pt seen and examined with resident team, agree with above. in brief this is a 68yo F admitted to the ICU with acute hypoxic resp failure 2/2 acute encephalopathy. Her mentation improved and we were able to transition to PSV. She met all weening criteria and was successfully extubated. On exam there was no significant change from day prior. CT shows progression of lesion in lung and will require further eval once stable with possible repeat biopsy. Fever has resolved and all cx are NTD. case d/w ICU team labs, imaging, records reviewed ~45ccmin required for eval, exam, review , intervention , discussion and formulation of POC for this pt who is intubated with resp failure.
--- NOTE | 2024-06-05 18:11 | PD.RESEVENT ---
Documentation for date of: 06/05/24 Event Note Event Note: Ms. Reina is 68 yr female with PMH of fibromyalgia, hypothyroidism, HTN, COPD, migraines, depression and history of 5cm pulmonary nodule presented to the ED on 06/04 due to altered mental status. Per ED, she was able to response to yes or no questions. Stroke alert was called due to right deviated gaze with fascicular twitching of the face. Stroke workup was found to be negative. EKG showed no ischemic changes. Tele neuro Suspected complex partial status epilepticus in the setting of severe hyperthermia. Per neuro recs, pt started on Ativan 2mg and Keppra loading dose. LP was unsuccessful. Pt medications list include poly neuro suspressants which could have caused to altered mentation. Patient was unable to protect her airway and was intubated on 06/04 and admitted to ICU due to acute respiratory failure secondary to altered mental status, hyperthermia, electrolyte abnormalities. Pt had new onset of a-fib with RVR, was started on amio drip. Pt is in sinus rhythm, mentation improved and was extubated on 06/05. Patient is able to follow commands and was stable to be downgraded to floors under the hospitalist care. Team B will resume care on 06/06. ICU recommendations include: re biopsy the pulmonary nodule to exclude malignancy and recommends out patient echo. Assessment and plan discussed with my attending physician Dr. Brown Schwartz (PGY-1)- Internal medicine resident
[2024-06-06] VITALS (12 sets, daily range): BP systolic 128–170; BP diastolic 72–92; PULSE 66–664; RESP 18–28; TEMP 36.1–37.5; O2SAT 96–99
[2024-06-06 05:51] LABS: INR 1.1 (0.9-1.3); Partial Thromboplastin Time 30.2 Seconds (22.0-36.0)
[2024-06-06] MEDS: HEPARIN SOD INJ 5000 UNIT/ML VIAL SC ×3 (06:00→21:32)
[2024-06-06] MEDS: THYROID 30 MG TABLET 90 MG PO (06:00)
[2024-06-06 06:34] LABS: Basophils % (Auto) 0 % (0-2.5); Eosinophils % (Auto) 0 % (0-10); Hematocrit 41.9 % (36.0-46.0); Hemoglobin 13.3 g/dL (12.0-16.0); Immature Granulocytes % (Auto) 1 % (0-0); Immature Granulocytes Auto 0.08 Thou/mm3 (0.00-0.00); Lymphocytes % (Auto) 13 % (10-50); Mean Corpuscular HGB Conc 31.7 g/dl (31.0-37.0); Mean Corpuscular Hemoglobin 29.4 pg (25.0-35.0); Mean Corpuscular Volume 93 fL (80-100); Monocytes # (Auto) 1.4 Thou/mm3 (0.0-0.8); Monocytes % (Auto) 9 % (0-12); Neutrophils # (Auto) 11.8 Thou/mm3 (1.8-7.7); Neutrophils % (Auto) 77 % (37-80); Nucleated Red Blood Cell # 0.02 Thou/mm3 (0.00-0.00); Nucleated Red Blood Cell % 0 /100 WBC (0); Platelet Count 148 Thou/mm3 (140-440); RDW Standard Deviation 55.1 fL (36.4-46.3); Red Blood Count 4.53 Miln/mm3 (4.00-5.20); White Blood Count 15.3 Thou/mm3 (3.6-11.0)
[2024-06-06 07:32] LABS: Alanine Aminotransferase 19 U/L (10-49); Albumin, Serum 3.8 gm/dL (3.4-4.8); Albumin/Globulin Ratio 1.4 (1.2-2.2); Alkaline Phosphatase 73 U/L (46-116); Anion Gap 10 (7-16); Aspartate Amino Transferase 34 U/L (0-34); BUN/Creatinine Ratio 30 Ratio (12-20); Bilirubin,Total 0.3 mg/dL (0.3-1.2); Blood Urea Nitrogen 30 mg/dL (9-23); Calcium 9.5 mg/dL (8.3-10.6); Calcium (Corrected) 9.7 mg/dL (8.5-10.1); Carbon Dioxide 26.4 mMol/L (20.0-31.0); Chloride 106 mMol/L (98-107); Estimated Creatinine Clearance 59.1 mL/min (>60); Globulin 2.8 gm/dL (2.3-3.5); Glucose 76 mg/dL (74-106); Osmolality,Calculated 288 (275-295); Potassium 3.5 mMol/L (3.4-5.1); Sodium 142 mMol/L (136-145); Total Protein 6.6 gm/dL (5.7-8.2); eGFR > 60 See Note
[2024-06-06 08:23] LABS: Free T4 (Free Thyroxine) 0.99 ng/dL (0.89-1.76)
--- NOTE | 2024-06-06 08:34 | PC.NURSE ---
[facility]700.
[2024-06-06] MEDS: ASPIRIN 81 MG CHEW PO (08:48)
[2024-06-06] MEDS: PANTOPRAZOLE INJ 40 MG VIAL IVP (08:48)
[2024-06-06] MEDS: PIPER/TAZO 3.375 GM 50 ML IV ×2 (08:48→20:21)
[2024-06-06] MEDS: Vancomycin Inj 750 MG in SODIUM CHLORIDE 0.9% 250 ML 250 ML 200 MG IV ×2 (10:19→21:31)
[2024-06-06 13:40] LABS: Cocci Serology, IgG Negative (Negative)
--- NOTE | 2024-06-06 15:23 | ESPR_ITS ---
Documentation for date of: 06/06/24 Senior resident attestation: Patient evaluated and examined at the bedside, plan of care discussed with rest of the team including my attending physician, except as noted. Kari PGY2 Subjective Subjective Interval history: 06/06: pt is an ICU downgrade. pt is seen and examined in ICU. Pt is alert, oriented and calm. Pt states she does not recall the events that caused her to be in the hospital. Pt states often times she takes tizanide, [place] 10, xanax and tamazipam because of combination of pain anxiety and xanax. Pt denies chest pain, abdominal pain, nausea or vomiting. Pt is aware of the left lung mass, she was informed of the new right lung mass and the left lung mass is bigger in size. Pt is advised to follow up outpatient for biopsy. Although pt. does not recall any seizure like activity, at admission pt was altered and teleneuro was consulted, and seizure like activity was suspected adn EEG is ordered and pending neuro recs. Exam Vital Signs Temp Pulse Resp BP Pulse Ox O2 Del Method O2 Flow Rate 98.2 F 79 19 128/90 H 97 Nasal Cannula 2 06/06/24 12:00 06/06/24 12:05 06/06/24 12:05 06/06/24 12:05 06/06/24 12:05 06/06/24 12:00 06/06/24 12:00 FiO2 35 06/05/24 12:00 Narrative Exam GENERAL: A&Ox3 . Awake, Not in acute distress NEURO: no focal neurological deficits HEENT: Atraumatic, Normocephalic. mucous membranes moist. Eyes open, symmetrical, & clear HEART: Normal Heart Sounds LUNGS: Clear to auscultation with no wheezing or crackles. ABDOMEN: soft, non-distended, non-tender, bowel sounds heard, no guarding or rebound tenderness SKIN: No Rash or ecchymoses EXTREMITIES: No edema, tenderness, able to move all 4 extremities, pedal pulses palpated Objective Labs 06/07/24 04:57 06/07/24 05:12 Labs: Laboratory Results - last 24 hr 06/04/24 06/06/24 20:55 04:51 WBC 15.3 H RBC 4.53 Hgb 13.3 Hct 41.9 MCV 93 MCH 29.4 MCHC 31.7 RDW Std Deviation 55.1 H Plt Count 148 Neut % (Auto) 77 Lymph % (Auto) 13 [place] % (Auto) 9 Eos % (Auto) 0 Baso % (Auto) 0 Neut # (Auto) 11.8 H Lymph # (Auto) 2.0 [place] # (Auto) 1.4 H Eos # (Auto) 0.0 Baso # (Auto) 0.0 Immature Gran # (Auto) 0.08 H Absolute Nucleated RBC 0.02 H Immature Gran % 1 H Nucleated RBC % 0 PT 12.0 INR 1.1 APTT 30.2 D Sodium 142 Potassium 3.5 Chloride 106 Carbon Dioxide 26.4 Anion Gap 10 BUN 30 H Creatinine 1.0 D Estim Creat Clear Calc 59.1 L eGFR > 60 BUN/Creatinine Ratio 30 H Glucose 76 D Calculated Osmolality 288 Calcium 9.5 Corrected Calcium 9.7 Total Bilirubin 0.3 AST 34 ALT 19 Alkaline Phosphatase 73 Total Protein 6.6 Albumin 3.8 Globulin 2.8 Albumin/Globulin Ratio 1.4 Free T4 0.99 Random Vancomycin 9.0 Coccidioides IgG Ab Negative ABG Interpretation ABG results: 06/04/24 06/04/24 06/04/24 14:35 16:22 20:34 ABG pH 7.33 L ABG pCO2 39 ABG pO2 349 H ABG HCO3 20 ABG O2 Saturation 100 H ABG Base Excess -5 L VBG pH 7.33 7.29 L VBG pCO2 38 37 VBG pO2 65 H 39 D VBG Base Excess -5 L -8 L 06/05/24 05:05 ABG pH 7.38 ABG pCO2 38 ABG pO2 193 H D ABG HCO3 22 ABG O2 Saturation 100 H ABG Base Excess -3 VBG pH VBG pCO2 VBG pO2 VBG Base Excess Quality Measures Quality Measures VTE prophylaxis Advance care planning discussed with:: patient Assessment & Plan Assessment Current Active Medications: Generic Name Dose Route Start Last Admin Trade Name Freq PRN Reason Stop Dose Admin Aspirin 81 mg 06/05/24 09:00 06/06/24 08:48 Aspirin 81 Mg Chew PO 07/05/24 08:59 81 mg QDAY KANDI Administration Heparin Sodium (Porcine) 5,000 unit 06/05/24 14:00 06/06/24 06:00 Heparin Sod Inj 5000 Unit/Ml Vial SC 06/19/24 13:59 5,000 unit Q8HR KANDI Administration Piperacillin/Tazobactam/Dextrose 50 mls @ 12.5 mls/hr 06/05/24 09:00 06/06/24 08:48 Zosyn IV 06/12/24 08:59 12.5 mls/hr Q12HR KANDI Administration Vancomycin HCl 750 mg/ Sodium 250 mls @ 200 mls/hr 06/06/24 10:00 06/06/24 10:19 Chloride IV 06/13/24 09:59 200 mls/hr Q12H KANDI Administration Lactulose 10 gm 06/04/24 18:22 Lactulose Syrup 20 Gm/30 Ml Udc PO 07/05/24 08:59 QDAY PRN contstipation Protocol Ondansetron HCl 4 mg 06/04/24 12:55 06/04/24 17:28 Ondansetron Inj 2 Mg/Ml Inj 2 Ml IV 07/04/24 12:54 4 mg Q4HR PRN Administration NAUSEA OR VOMITING Pantoprazole Sodium 40 mg 06/04/24 21:00 06/06/24 08:48 Pantoprazole Inj 40 Mg Vial IVP 07/04/24 20:59 40 mg QDAY KANDI Administration Pharmacy Consult 1 each 06/04/24 18:45 Vancomycin Pharmacy To Dose 1 Each Each IV 07/04/24 18:44 QDAY PRN PROTOCOL Thyroid 90 mg 06/05/24 06:00 06/06/24 06:00 Thyroid 30 Mg Tablet PO 07/05/24 05:59 90 mg ACBR KANDI Administration Plan Nuno is 68 yr female with PMH of fibromyalgia, hypothyroidism, HTN, COPD, migraines, depression, 5cm pulmonary nodule who arrived to ED due to AMS. was with pt uppon arrival to who stated that as of last night she was in usual state of mind. Symptoms worsened this morning with declining mental status. She was intubated and admitted to ICU due to acute resp failure 2/2 AMS, hyperthermia, electrolyte abnormalities. Pt is downgraded to floors on 06/05 after mentation improved and pt is extubated. #Acute encephalopathy-resolved # CVA-ruled out # Seizure like activity -On admission patient had altered mental status, unable to protect her airway. Patient was intubated on 06/04 and extubated on 06/05 -Patient is now alert and oriented x3 -Teleneuro was consulted CVA was ruled out but suspected seizure-like activity -EEG is ordered -Neurology is consulted -Physical therapy is ordered #pulmonary Mass Patient has a history of 4cm left pulmonary nodule. Pathology done in 2023 showed no evidence of malignancy. Possible necrosis/granuloma. -CT of chest: Pulmonary mass left upper lobe measures 5.5 x 5.2 cm compared to 4.4 x [address] chest August 19, 2023 4 mm pleural-based pulmonary nodule right upper lobe -Consider repeat nodule biopsy outpatient #Hx primary hypertension Home medications: amlodipine 10mg daily, metoprolol succinate 25 mg daily -In light of stable blood pressure will hold home antihypertensive medication #Hx COPD Hyperinflated lungs on chest x-ray, home medication albuterol, extensive smoking history. -Pt is saturating on room air, does not appear to be SOB #Acute Kidney Injury - resolved Ddx: Most likely prerenal in (setting of hypoperfusion/dehydration) versus intrarenal, postrenal. Pt it s/p 2L bolus -avoid nephrotoxic agents and renally dose medications -daily CMP #Hx hypothyroidism -resume home 90 mg armour thyroid -TSH 10.47 -recommended that patient change to levothyroxine -f/u outpatient # Chronic pain # Insomnia # Anxiety -Will hold home tizanidine, Xanax, temazepam, and [place] Health maintenance: Dispo: tele, pending neuro recs and EEG DVT prophylaxis: Heparin 5000 units every 8 hours CODE STATUS: Full code Diet: regular Assessment and plan discussed with my senior resident Dr. Pierce & attending physician Dr. Brown Schwartz (PGY-1)- Internal medicine resident Attending Provider Attestation/Addendum Deann Adler, , attest that I was physically present for the larose portions of the service and evaluated the patient with the resident and I reviewed and discussed the case with the resident and agree with the resident's findings and plans of care as documented above Patient seen eval this a.m. She states that she is feeling well. Patient downgraded from ICU after she was admitted for acute toxic metabolic encephalopathy due to polypharmacy. Patient is noted to have a mix of benzodiazepines and opiates with that she takes at home. CT chest done on admission shows a large left upper lobe pulmonary mass that have been previously biopsied. However, mass appears to be larger than it was in August 2023. Explained to patient that he would benefit from a repeat biopsy. Patient states that she will have this done outpatient and arranged by her primary care doctor. Pending EEG due to seizure-like activity noted on presentation. Will follow-up with neurology recommendations. Patient tested positive for flu, but is asymptomatic currently.
--- NOTE | 2024-06-06 15:31 | PC.CC ---
Update: Patient is no room air. P.O. feeding. Patient receiving IV antibiotic. Patient has been downgraded to ICU.
[2024-06-06] MEDS: ACETAMINOPHEN 325 MG TABLET 650 MG PO (15:37)
[2024-06-06] MEDS: ALPRazoLAM 0.25 MG TABLET 1 MG PO (22:12)
--- NOTE | 2024-06-06 23:22 | PD.VPROG1 ---
Telemedicine visit statement This visit was conducted with the use of virtual visit was obtained on 06/06/24 at 2322. Documentation for date of: 06/06/24 Subjective Subjective Interval history: Patient is in telemetry. No witnessed seizures reported after transfer from ICU to telemetry. She was given a dose of Xanax tonight, noted that she takes it 2 mg 3 times a day along with temazepam, opiates and tizanidine at home. Virtual exam Vital Signs Temp Pulse Resp BP Pulse Ox O2 Del Method O2 Flow Rate 97.0 F 78 18 147/92 H 97 Room Air 2 06/06/24 20:57 06/06/24 20:57 06/06/24 20:57 06/06/24 20:57 06/06/24 20:57 06/06/24 20:57 06/06/24 16:01 FiO2 35 06/05/24 12:00 Objective Labs 06/06/24 04:51 06/06/24 04:51 Labs: Laboratory Results - last 24 hr 06/04/24 06/06/24 20:55 04:51 WBC 15.3 H RBC 4.53 Hgb 13.3 Hct 41.9 MCV 93 MCH 29.4 MCHC 31.7 RDW Std Deviation 55.1 H Plt Count 148 Neut % (Auto) 77 Lymph % (Auto) 13 [place] % (Auto) 9 Eos % (Auto) 0 Baso % (Auto) 0 Neut # (Auto) 11.8 H Lymph # (Auto) 2.0 [place] # (Auto) 1.4 H Eos # (Auto) 0.0 Baso # (Auto) 0.0 Immature Gran # (Auto) 0.08 H Absolute Nucleated RBC 0.02 H Immature Gran % 1 H Nucleated RBC % 0 PT 12.0 INR 1.1 APTT 30.2 D Sodium 142 Potassium 3.5 Chloride 106 Carbon Dioxide 26.4 Anion Gap 10 BUN 30 H Creatinine 1.0 D Estim Creat Clear Calc 59.1 L eGFR > 60 BUN/Creatinine Ratio 30 H Glucose 76 D Calculated Osmolality 288 Calcium 9.5 Corrected Calcium 9.7 Total Bilirubin 0.3 AST 34 ALT 19 Alkaline Phosphatase 73 Total Protein 6.6 Albumin 3.8 Globulin 2.8 Albumin/Globulin Ratio 1.4 Free T4 0.99 Random Vancomycin 9.0 Coccidioides IgG Ab Negative ABG Interpretation ABG results: 06/04/24 06/04/24 06/04/24 14:35 16:22 20:34 ABG pH 7.33 L ABG pCO2 39 ABG pO2 349 H ABG HCO3 20 ABG O2 Saturation 100 H ABG Base Excess -5 L VBG pH 7.33 7.29 L VBG pCO2 38 37 VBG pO2 65 H 39 D VBG Base Excess -5 L -8 L 06/05/24 05:05 ABG pH 7.38 ABG pCO2 38 ABG pO2 193 H D ABG HCO3 22 ABG O2 Saturation 100 H ABG Base Excess -3 VBG pH VBG pCO2 VBG pO2 VBG Base Excess Assessment & Plan Problem List (1) Altered mental status: Status: Resolved Assessment and plan: Back to baseline. Consider lowering the dose of benzos and opiates upon discharge. (2) Sepsis: Status: Acute Assessment and plan: White count is still high, continue with antibiotics and follow-up with the final culture. No more fever spikes noted. Hold off on LP (3) Lung mass: Status: Acute Assessment and plan: Possible biopsy of the left upper lobe mass without malignancy as an outpatient
[2024-06-07 00:49] VITALS: BP 154/92; PULSE 71; RESP 20; TEMP 36.2; O2SAT 93
[2024-06-07] MEDS: ACETAMINOPHEN 325 MG TABLET 650 MG PO (03:12)
[2024-06-07 04:00] VITALS: BP 134/86; PULSE 77; RESP 14; TEMP 36.1; O2SAT 94
[2024-06-07] MEDS: HEPARIN SOD INJ 5000 UNIT/ML VIAL SC ×3 (05:30→21:21)
[2024-06-07] MEDS: THYROID 30 MG TABLET 90 MG PO (05:30)
[2024-06-07 06:23] LABS: Basophils % (Auto) 0 % (0-2.5); Eosinophils # (Auto) 0.1 Thou/mm3 (0.0-0.5); Eosinophils % (Auto) 0 % (0-10); Hemoglobin 12.3 g/dL (12.0-16.0); Immature Granulocytes % (Auto) 1 % (0-0); Immature Granulocytes Auto 0.06 Thou/mm3 (0.00-0.00); Lymphocytes # (Auto) 1.7 Thou/mm3 (1.0-4.8); Lymphocytes % (Auto) 13 % (10-50); Mean Corpuscular HGB Conc 32.4 g/dl (31.0-37.0); Mean Corpuscular Hemoglobin 29.2 pg (25.0-35.0); Mean Corpuscular Volume 90 fL (80-100); Monocytes # (Auto) 1.2 Thou/mm3 (0.0-0.8); Monocytes % (Auto) 9 % (0-12); Neutrophils # (Auto) 9.7 Thou/mm3 (1.8-7.7); Neutrophils % (Auto) 76 % (37-80); Nucleated Red Blood Cell # 0.08 Thou/mm3 (0.00-0.00); Nucleated Red Blood Cell % 1 /100 WBC (0); Platelet Count 154 Thou/mm3 (140-440); RDW Standard Deviation 50.8 fL (36.4-46.3); Red Blood Count 4.21 Miln/mm3 (4.00-5.20); White Blood Count 12.7 Thou/mm3 (3.6-11.0)
[2024-06-07 07:18] LABS: Alanine Aminotransferase 15 U/L (10-49); Albumin, Serum 3.8 gm/dL (3.4-4.8); Albumin/Globulin Ratio 1.5 (1.2-2.2); Alkaline Phosphatase 67 U/L (46-116); Anion Gap 9 (7-16); Aspartate Amino Transferase 20 U/L (0-34); BUN/Creatinine Ratio 17 Ratio (12-20); Bilirubin,Total 0.8 mg/dL (0.3-1.2); Blood Urea Nitrogen 12 mg/dL (9-23); Calcium 9.1 mg/dL (8.3-10.6); Calcium (Corrected) 9.3 mg/dL (8.5-10.1); Carbon Dioxide 30.9 mMol/L (20.0-31.0); Chloride 99 mMol/L (98-107); Creatinine (Component) 0.7 mg/dL (0.6-1.3); Estimated Creatinine Clearance 83.4 mL/min (>60); Globulin 2.6 gm/dL (2.3-3.5); Glucose 80 mg/dL (74-106); Osmolality,Calculated 276 (275-295); Potassium 2.8 mMol/L (3.4-5.1); Sodium 139 mMol/L (136-145); Total Protein 6.4 gm/dL (5.7-8.2); eGFR > 60 See Note
[2024-06-07 08:00] VITALS: BP 153/71; PULSE 75; RESP 21; TEMP 35.9; O2SAT 93
[2024-06-07] MEDS: POTASSIUM CHLORIDE 20 mEq TABCR 40 MEQ PO (08:42)
[2024-06-07] MEDS: ASPIRIN 81 MG CHEW PO (08:44)
[2024-06-07] MEDS: PIPER/TAZO 3.375 GM 50 ML IV ×2 (08:44→20:13)
[2024-06-07] MEDS: POTASSIUM CHL 10 mEq IVPB 10 MEQ/100 ML BAG 100 MEQ IV ×2 (08:49→10:02)
[2024-06-07] MEDS: PANTOPRAZOLE INJ 40 MG VIAL IVP (08:50)
[2024-06-07 09:49] LABS: Vancomycin,Trough 10.9 mcg/mL (5.0-10.0)
[2024-06-07 12:00] VITALS: BP 138/76; PULSE 76; PULSE 80; RESP 80; TEMP 36.4; O2SAT 94
--- NOTE | 2024-06-07 12:43 | PC.SS ---
Pt last followed up with PCP Dr. French April 2024. Pt does not have prefernce for HH Services.
--- NOTE | 2024-06-07 13:13 | PC.SS ---
ASW met at bed side with patient. Patient appeared alert/oriented. Patient explained on role and reason for contact. Patient expressed she has a history of mental health, anxiety. Patient informed she takes Xanax however is to follow up with prescription as it was going to change. Patient denies being connected to outpatient services. Patient denies SI,HI and audio or visual hallucinations. Patient follows Dr. French for primary care. Patient informed she would return home upon discharge, her spouse Vaughn would provide transport home. Patient reports having adequate support at home. No need further intervention , community resources provided to the patient. Patient's neighborhood planner notified.
[2024-06-07 14:00] LABS: Potassium 3.6 mMol/L (3.4-5.1)
[2024-06-07 15:25] VITALS: BMI 26.2
[2024-06-07 16:00] VITALS: BP 142/82; PULSE 79; PULSE 85; RESP 19; TEMP 37.6; O2SAT 95
[2024-06-07] MEDS: ACETAMINOPHEN 325 MG TABLET PO (17:03)
--- NOTE | 2024-06-07 17:24 | ESPR_ITS ---
Documentation for date of: 06/07/24 Subjective Subjective Interval history: 06/07: No acute overnight events patient seen and examined at bedside this morning patient's potassium was 2.8 60 mEq of potassium was repleted. Patient complains of fibromyalgia pain everywhere and is requesting to take Tylenol at increased frequency. Patient states she was not able to sleep last night and requested lorazepam to help sleep. Patient expressed she would like to go home because she feels fine. Patient states this is an isolated situation that she does not believe she mixed her medications but she normally takes all of her medications and knows how to separate them. She claims most of them do not work on her anyway. Exam Vital Signs Temp Pulse Resp BP Pulse Ox O2 Del Method O2 Flow Rate 99.6 F 79 19 142/82 H 95 Room Air 2 06/07/24 16:00 06/07/24 16:00 06/07/24 16:00 06/07/24 16:00 06/07/24 16:00 06/07/24 16:00 06/06/24 16:01 FiO2 35 06/05/24 12:00 Narrative Exam GENERAL: A&Ox3 . Awake, Not in acute distress NEURO: no focal neurological deficits HEENT: Atraumatic, Normocephalic. mucous membranes moist. Eyes open, symmetrical, & clear HEART: Normal Heart Sounds LUNGS: Clear to auscultation with no wheezing or crackles. ABDOMEN: soft, non-distended, non-tender, bowel sounds heard, no guarding or rebound tenderness SKIN: No Rash or ecchymoses EXTREMITIES: No edema, tenderness, able to move all 4 extremities, pedal pulses palpated Objective Labs 06/07/24 04:57 06/08/24 08:46 Labs: Laboratory Results - last 24 hr 06/07/24 06/07/24 06/07/24 04:57 05:12 09:20 WBC 12.7 H RBC 4.21 Hgb 12.3 Hct 38.0 MCV 90 MCH 29.2 MCHC 32.4 RDW Std Deviation 50.8 H Plt Count 154 Neut % (Auto) 76 Lymph % (Auto) 13 [place] % (Auto) 9 Eos % (Auto) 0 Baso % (Auto) 0 Neut # (Auto) 9.7 H Lymph # (Auto) 1.7 [place] # (Auto) 1.2 H Eos # (Auto) 0.1 Baso # (Auto) 0.0 Immature Gran # (Auto) 0.06 H Absolute Nucleated RBC 0.08 H Immature Gran % 1 H Nucleated RBC % 1 H Sodium 139 Potassium 2.8 L D Chloride 99 Carbon Dioxide 30.9 Anion Gap 9 BUN 12 Creatinine 0.7 Estim Creat Clear Calc 83.4 eGFR > 60 BUN/Creatinine Ratio 17 Glucose 80 Calculated Osmolality 276 Calcium 9.1 Corrected Calcium 9.3 Total Bilirubin 0.8 D AST 20 ALT 15 Alkaline Phosphatase 67 Total Protein 6.4 Albumin 3.8 Globulin 2.6 Albumin/Globulin Ratio 1.5 Vancomycin Trough 10.9 H 06/07/24 13:25 WBC RBC Hgb Hct MCV MCH MCHC RDW Std Deviation Plt Count Neut % (Auto) Lymph % (Auto) [place] % (Auto) Eos % (Auto) Baso % (Auto) Neut # (Auto) Lymph # (Auto) [place] # (Auto) Eos # (Auto) Baso # (Auto) Immature Gran # (Auto) Absolute Nucleated RBC Immature Gran % Nucleated RBC % Sodium Potassium 3.6 D Chloride Carbon Dioxide Anion Gap BUN Creatinine Estim Creat Clear Calc eGFR BUN/Creatinine Ratio Glucose Calculated Osmolality Calcium Corrected Calcium Total Bilirubin AST ALT Alkaline Phosphatase Total Protein Albumin Globulin Albumin/Globulin Ratio Vancomycin Trough ABG Interpretation ABG results: 06/04/24 06/04/24 06/04/24 14:35 16:22 20:34 ABG pH 7.33 L ABG pCO2 39 ABG pO2 349 H ABG HCO3 20 ABG O2 Saturation 100 H ABG Base Excess -5 L VBG pH 7.33 7.29 L VBG pCO2 38 37 VBG pO2 65 H 39 D VBG Base Excess -5 L -8 L 06/05/24 05:05 ABG pH 7.38 ABG pCO2 38 ABG pO2 193 H D ABG HCO3 22 ABG O2 Saturation 100 H ABG Base Excess -3 VBG pH VBG pCO2 VBG pO2 VBG Base Excess Quality Measures Quality Measures VTE prophylaxis Advance care planning discussed with:: patient Assessment & Plan Assessment Current Active Medications: Generic Name Dose Route Start Last Admin Trade Name Freq PRN Reason Stop Dose Admin Acetaminophen 325 mg 06/07/24 17:01 06/07/24 17:03 Acetaminophen 325 Mg Tablet PO 07/07/24 17:00 325 mg Q4HR PRN Administration Pain Or Fever > 100.3 Aspirin 81 mg 06/05/24 09:00 06/07/24 08:44 Aspirin 81 Mg Chew PO 07/05/24 08:59 81 mg QDAY KANDI Administration Heparin Sodium (Porcine) 5,000 unit 06/05/24 14:00 06/07/24 13:54 Heparin Sod Inj 5000 Unit/Ml Vial SC 06/19/24 13:59 5,000 unit Q8HR KANDI Administration Piperacillin/Tazobactam/Dextrose 50 mls @ 12.5 mls/hr 06/05/24 09:00 06/07/24 08:44 Zosyn IV 06/12/24 08:59 12.5 mls/hr Q12HR KANDI Administration Lactulose 10 gm 06/04/24 18:22 Lactulose Syrup 20 Gm/30 Ml Udc PO 07/05/24 08:59 QDAY PRN contstipation Protocol Ondansetron HCl 4 mg 06/04/24 12:55 06/04/24 17:28 Ondansetron Inj 2 Mg/Ml Inj 2 Ml IV 07/04/24 12:54 4 mg Q4HR PRN Administration NAUSEA OR VOMITING Pantoprazole Sodium 40 mg 06/04/24 21:00 06/07/24 08:50 Pantoprazole Inj 40 Mg Vial IVP 07/04/24 20:59 40 mg QDAY KANDI Administration Thyroid 90 mg 06/05/24 06:00 06/07/24 05:30 Thyroid 30 Mg Tablet PO 07/05/24 05:59 90 mg ACBR KANDI Administration Plan Nuno is 68 yr female with PMH of fibromyalgia, hypothyroidism, HTN, COPD, migraines, depression, 5cm pulmonary nodule who arrived to ED due to AMS. was with pt uppon arrival to who stated that as of last night she was in usual state of mind. Symptoms worsened this morning with declining mental status. She was intubated and admitted to ICU due to acute resp failure 2/2 AMS, hyperthermia, electrolyte abnormalities. Pt is downgraded to floors on 06/05 after mentation improved and pt is extubated. #Acute encephalopathy-resolved # CVA-ruled out # Seizure like activity -On admission patient had altered mental status likely metabolic due to polypharmacy, unable to protect her airway. Patient was intubated on 06/04 and extubated on 06/05 -Patient home medications include benzodiazepine, lorazepam, tizanidine and Xanax -Patient is now alert and oriented x3 -Teleneuro was consulted CVA was ruled out but suspected seizure-like activity -EEG is done, pending read -Neurology is consulted -Physical therapy is ordered #pulmonary Mass Patient has a history of 4cm left pulmonary nodule. Pathology done in 2023 showed no evidence of malignancy. Possible necrosis/granuloma. -CT of chest: Pulmonary mass left upper lobe measures 5.5 x 5.2 cm compared to 4.4 x 4[address] chest August 19, 2023 4 mm pleural-based pulmonary nodule right upper lobe -Patient is made aware of the pulmonary mass that has increased in size and a new mass on the right side -Patient will follow up with primary care physician for an outpatient biopsy #Hx primary hypertension Home medications: amlodipine 10mg daily, metoprolol succinate 25 mg daily -In light of stable blood pressure will hold home antihypertensive medication #Hx COPD?resolved Hyperinflated lungs on chest x-ray, home medication albuterol, extensive smoking history. -Pt is saturating on room air, does not appear to be SOB #Acute Kidney Injury - resolved Ddx: Most likely prerenal in (setting of hypoperfusion/dehydration) versus intrarenal, postrenal. Pt it s/p 2L bolus -avoid nephrotoxic agents and renally dose medications -daily CMP #Hx hypothyroidism -resume home 90 mg armour thyroid -TSH 10.47 -recommended that patient change to levothyroxine -f/u outpatient # Chronic pain # Fibromyalgia # Insomnia # Anxiety -Will hold home tizanidine, Xanax, temazepam, and [place] -Tylenol 3 25 as needed every 4 hours Health maintenance: Dispo: tele, pending neuro recs and EEG DVT prophylaxis: Heparin 5000 units every 8 hours CODE STATUS: Full code Diet: regular Assessment and plan discussed with my attending physician Dr. Brown Schwartz ([id number]-1)- Internal medicine resident Attending Provider Attestation/Addendum Deann Adler DO, attest that I was physically present for the larose portions of the service and evaluated the patient with the resident and I reviewed and discussed the case with the resident and agree with the resident's findings and plans of care as documented above Patient seen eval this a.m. She states that she is feeling well. She is anxious to go home. She denies any headache, nausea, vomiting, diaphoresis, chest pain, shortness of breath otherwise. Pending EEG and echo at this time. Will have patient work with physical therapy. Anticipate discharge within the next 24 hours. Will follow-up with neurology recommendations.
[2024-06-07 20:00] VITALS: BP 143/79; PULSE 86; RESP 21; TEMP 36.3; O2SAT 95
[2024-06-07] MEDS: ALPRazoLAM 0.25 MG TABLET 0.5 MG PO (21:20)
--- NOTE | 2024-06-07 23:49 | ESPR_ITS ---
Documentation for date of: 06/07/24 Subjective Subjective Interval history: Patient was seen and telemetry today. No new symptoms reported. No witnessed seizures noted. Tolerating oral diet well. The patient did have the EEG this morning. Exam - Neurology Vital Signs Temp Pulse Resp BP Pulse Ox O2 Del Method O2 Flow Rate 97.4 F 86 21 H 143/79 H 95 Room Air 2 06/07/24 20:00 06/07/24 20:00 06/07/24 20:00 06/07/24 20:00 06/07/24 20:00 06/07/24 20:00 06/06/24 16:01 FiO2 35 06/05/24 12:00 Narrative Exam GENERAL APPEARANCE: Well hydrated, well-nourished in no acute distress. HEENT: Normocephalic, atraumatic, extraocular movements intact. Pupils: Equal reacting to light and accommodation, tympanic membranes are bilaterally intact. There is no bulge or retraction. Throat without erythema or exudate. Moist oral mucosa. NECK: Supple, no JVD or bruits. CARDIOVASULAR: Heart: S1, S2 heard, regular without S3-S4 or murmur no rubs or gallops. LUNGS/CHEST: Clear to auscultation bilaterally. No rails, rhonchi, or wheezing. Normal inspection. ABDOMEN: Soft, nontender, with normal bowel sounds. No pulsatile masses. No rebound, rigidity, or guarding. Normal inspection and palpation. EXTREMITIES: Normal inspection and palpation. No edema, clubbing or cyanosis. SKIN: Warm and dry without rashes. Normal inspection. MUSCULOSKELETAL: No cervical, thoracic, lumbar or midline bony tenderness. Normal inspection. NEURO: Alert, awake and oriented x3. Cranial nerves: II through XII grossly intact. Speech and language: Normal with no dysarthria or dysphasia. Motor system: Tone and bulk: Normal: Strength: 5 out of 5 in all 4 extremities; No pronator drift noted. Deep tendon reflexes: 2+ bilaterally symmetrical. Plantar reflex: Downgoing bilaterally. Sensory system: Intact to all modalities of sensation bilaterally. Coordination: Intact to [id number] and xdtu-dynj-[id number] test bilaterally. No ataxia, no dysmetria, or dysdiadochokinesia noted. No intention tremors noted. Gait: Walked with physical therapist using the walker. No signs of meningeal irritation noted. PSYCHIATRIC: Normal mood and affect. Objective Labs 06/07/24 04:57 06/07/24 13:25 Labs: Laboratory Results - last 24 hr 06/07/24 06/07/24 06/07/24 04:57 05:12 09:20 WBC 12.7 H RBC 4.21 Hgb 12.3 Hct 38.0 MCV 90 MCH 29.2 MCHC 32.4 RDW Std Deviation 50.8 H Plt Count 154 Neut % (Auto) 76 Lymph % (Auto) 13 [place] % (Auto) 9 Eos % (Auto) 0 Baso % (Auto) 0 Neut # (Auto) 9.7 H Lymph # (Auto) 1.7 [place] # (Auto) 1.2 H Eos # (Auto) 0.1 Baso # (Auto) 0.0 Immature Gran # (Auto) 0.06 H Absolute Nucleated RBC 0.08 H Immature Gran % 1 H Nucleated RBC % 1 H Sodium 139 Potassium 2.8 L D Chloride 99 Carbon Dioxide 30.9 Anion Gap 9 BUN 12 Creatinine 0.7 Estim Creat Clear Calc 83.4 eGFR > 60 BUN/Creatinine Ratio 17 Glucose 80 Calculated Osmolality 276 Calcium 9.1 Corrected Calcium 9.3 Total Bilirubin 0.8 D AST 20 ALT 15 Alkaline Phosphatase 67 Total Protein 6.4 Albumin 3.8 Globulin 2.6 Albumin/Globulin Ratio 1.5 Vancomycin Trough 10.9 H 06/07/24 13:25 WBC RBC Hgb Hct MCV MCH MCHC RDW Std Deviation Plt Count Neut % (Auto) Lymph % (Auto) [place] % (Auto) Eos % (Auto) Baso % (Auto) Neut # (Auto) Lymph # (Auto) [place] # (Auto) Eos # (Auto) Baso # (Auto) Immature Gran # (Auto) Absolute Nucleated RBC Immature Gran % Nucleated RBC % Sodium Potassium 3.6 D Chloride Carbon Dioxide Anion Gap BUN Creatinine Estim Creat Clear Calc eGFR BUN/Creatinine Ratio Glucose Calculated Osmolality Calcium Corrected Calcium Total Bilirubin AST ALT Alkaline Phosphatase Total Protein Albumin Globulin Albumin/Globulin Ratio Vancomycin Trough ABG Interpretation ABG results: 06/04/24 06/04/24 06/04/24 14:35 16:22 20:34 ABG pH 7.33 L ABG pCO2 39 ABG pO2 349 H ABG HCO3 20 ABG O2 Saturation 100 H ABG Base Excess -5 L VBG pH 7.33 7.29 L VBG pCO2 38 37 VBG pO2 65 H 39 D VBG Base Excess -5 L -8 L 06/05/24 05:05 ABG pH 7.38 ABG pCO2 38 ABG pO2 193 H D ABG HCO3 22 ABG O2 Saturation 100 H ABG Base Excess -3 VBG pH VBG pCO2 VBG pO2 VBG Base Excess Assessment & Plan Additional Assessment & Plan Additional Plan: (1) Altered mental status: Status: Resolved Assessment and plan: Back to baseline. Consider lowering the dose of benzos and opiates upon discharge. (2) Sepsis: Status: Acute Assessment and plan: White count is still high but it is trending down, continue with antibiotics and follow-up with the final culture. No more fever spikes noted. Hold off on LP (3) Lung mass: Status: Acute Assessment and plan: Possible biopsy of the left upper lobe mass as an outpatient
[2024-06-08] VITALS: BP 146/80; PULSE 77; RESP 17; TEMP 36.4; O2SAT 95
[2024-06-08] MEDS: ACETAMINOPHEN 325 MG TABLET PO ×2 (02:14→12:49)
[2024-06-08 04:00] VITALS: BP 145/75; PULSE 81; RESP 14; TEMP 36.4; O2SAT 95
[2024-06-08] MEDS: HEPARIN SOD INJ 5000 UNIT/ML VIAL SC (05:27)
[2024-06-08] MEDS: THYROID 30 MG TABLET 90 MG PO (05:40)
[2024-06-08 05:59] VITALS: BMI 26.7
[2024-06-08 07:15] VITALS: PULSE 79; RESP 20; RESP 98
[2024-06-08 08:00] VITALS: BP 163/94; PULSE 78; PULSE 84; RESP 19; TEMP 36.1; O2SAT 19
[2024-06-08 09:29] LABS: Anion Gap 7 (7-16); BUN/Creatinine Ratio 13 Ratio (12-20); Blood Urea Nitrogen 9 mg/dL (9-23); Calcium 9.4 mg/dL (8.3-10.6); Carbon Dioxide 31.7 mMol/L (20.0-31.0); Chloride 103 mMol/L (98-107); Creatinine (Component) 0.7 mg/dL (0.6-1.3); Estimated Creatinine Clearance 84.2 mL/min (>60); Glucose 131 mg/dL (74-106); Osmolality,Calculated 283 (275-295); Potassium 3.2 mMol/L (3.4-5.1); Sodium 142 mMol/L (136-145); eGFR > 60 See Note
[2024-06-08] MEDS: PANTOPRAZOLE INJ 40 MG VIAL IVP (09:31)
[2024-06-08] MEDS: PIPER/TAZO 3.375 GM 50 ML IV (09:31)
[2024-06-08] MEDS: ASPIRIN 81 MG CHEW PO (09:32)
[2024-06-08] MEDS: POTASSIUM CHLORIDE 20 mEq TABCR 40 MEQ PO (10:57)
[2024-06-08 12:00] VITALS: BP 145/73; PULSE 89; RESP 20; TEMP 37; O2SAT 94
[2024-06-08 14:30] VITALS: BP 149/87; PULSE 97; RESP 17; TEMP 36.2; O2SAT 92
--- NOTE | 2024-06-08 19:30 | ESDS_ITS ---
<Statement entered by Deann Dasilva DO - 06/09/24 09:39> I, Deann Dasilva DO, attest that I was physically present for the larose portions of the service and evaluated the patient with the resident and I reviewed and discussed the case with the resident and agree with the resident's findings and plans of care as documented above Planned Discharge Date 06/08/24 DS: Providers Provider Date of admission: 06/04/24 18:22 Primary care physician: Michael French MD Admitting Provider: Yolis Jaramillo MD Attending Provider on Admission: Deann Dasilva DO Consults: 06/06/24 08:17 Consult to Neurology / Tele-Neurology Routine Comment: Consulting Provider: Zachary Morin 06/06/24 13:12 Referral Physical Therapy Routine Comment: Physician Instructions: Attending Provider on DC: Zach Schwartz MD Discharging Provider: Zach Schwartz MD DS: Diagnosis Problem List Completed Was Problem List Reviewed/Reconciled?: Yes Hospital Course Hospital Course Hospital course: Ms. Reina is 68 yr female with PMH of fibromyalgia, hypothyroidism, HTN, COPD, migraines, depression and history of 4cm pulmonary nodule presented to [facility] ED on 06/04 due to altered mental status. Per ED, she was able to response to yes or no questions. Stroke alert was called due to right deviated gaze with fascicular twitching of the face. Stroke workup was found to be negative. EKG showed no ischemic changes. Tele neuro Suspected complex partial status epilepticus in the setting of severe hyperthermia. Per neuro recs, pt started on Ativan 2mg and Keppra loading dose. LP was unsuccessful. Pt medications list include poly neuro suspressants which could have caused to altered mentation. Patient was unable to protect her airway and was intubated on 06/04 and admitted to ICU due to acute respiratory failure secondary to altered mental status, hyperthermia, electrolyte abnormalities. Pt had new onset of a- fib with RVR which resolved with 1 bag of amiodarone drip, Pt returned to sinus rhythm, mentation improved and was extubated on 06/05. Afib appeared to be secondary to acute illness in ICU and patient remained sinus rhythm since completing amiodarone. Patient was downgraded to the floors from ICU where patient continued to improve mentation and expressed understanding of the possibility of mixing multiple of her medications that could have interacted with each other. Patient also underwent EEG with normal findings and no focal, diffuse or generalized abnormalities were noted. Patient is informed that her previous left pulmonary nodule has increased in size to 5 cm and she has a new pulmonary mass on the right lung and is strongly advised to follow-up outpatient with primary care for referral for repeating biopsy patient is hemodynamically and clinically stable patient was able to work with physical therapist, tolerating oral diet to be discharged home with her as well as home health. Patient is strongly advised if her symptoms return or worsen to promptly return to the ED. Discharge Recommendations Patient is recommended to follow-up with primary care physician within 1 week.recommended to have Echo as outpatient. Patient is recommended to discontinue the use of Xanax completely for management of anxiety and consider SSRI/SNRI for long-term management generalized anxiety disorder Patient is also recommended to follow-up with primary care physician for dose reduction of muscle relaxers including temazepam and tizanidine Patient is recommended follow-up with primary care physician for biopsy of lesion noted on chest CT . Patient is recommended to monitor for polypharmacy Hospitalization Diagnosis #Acute encephalopathy-resolved # Polypharmacy # benzodiazepine dependence # CVA-ruled out # Seizure like activity #pulmonary Mass Patient has a history of 4cm left pulmonary nodule. Pathology done in 2023 showed no evidence of malignancy. Possible necrosis/granuloma. -CT of chest: Pulmonary mass left upper lobe measures 5.5 x 5.2 cm compared to 4.4 x 4.[address] chest August 19, 2023 4 mm pleural-based pulmonary nodule right upper lobe -Patient is made aware of the pulmonary mass that has increased in size and a new mass on the right side -Patient will follow up with primary care physician for an outpatient biopsy #New onset afib , resolved #Hx primary hypertension #Hx COPD?resolved #Acute Kidney Injury - resolved #Hx hypothyroidism # Chronic pain # Fibromyalgia # Insomnia # Anxiety Assessment and plan discussed with my attending physician Dr. Brown Schwartz (PGY-1)- Internal medicine resident Time Spent with Patient Time attestation: Total time spent providing and/or coordinating discharge services: >30mins Home Health Home Health Referral Orders: 06/07/24 14:40 Home Health Referral Routine Reason For Exam: acute encephalopathy Home-Bound The patient must either because of illness or injury, need the aid of supportive devices such as crutches, canes, wheelchairs, and walkers; the use of special transportation; or the assistance of another person in order to leave their place of residence; OR have a condition such that leaving his or her home is medically contraindicated. In addition, the patient also meets the following criteria: patient is normally unable to leave the home and leaving home requires considerable taxing effort. Addendum to Home Health Certification Practitioner's Certification: I certify that the patient has been under my care in the hospital and the care of attending physician (see below). We had a [id number] encounter on (see date below). My clinical findings indicate that the patient is home bound per the above criteria and the Home Health Services noted in these orders are medically necessary. The primary reason for the [id number] encounter is related to the fact that the patient requires home health services. Date Certifying [id number] Physician Encounter: 06/04/24 Physician's Name who will Assume Oversight for Services: Michael French Physician's Phone No.who will Assume Oversight for Service: [employer] - Community Resources: No PT to Evaluate: Yes PT to evaluate and provide a treatmnet plan to increase patient's mobility and strength. Wound Care: No IV Therapy: No RN Safety Evaluation: Yes RN to evaluate and create a plan of care that will produce positive outcomes. Palliative Treatment: No Palliative treatment and evaluate the need for hospice. Home Health Aide - Personal Care: Yes Home Health Aide to assist with any ADL's. Exam Vital Signs Temp Pulse Resp BP Pulse Ox O2 Del Method O2 Flow Rate 97.1 F 97 17 149/87 H 92 L Room Air 2 06/08/24 14:30 06/08/24 14:30 06/08/24 14:30 06/08/24 14:30 06/08/24 14:30 06/08/24 14:30 06/06/24 16:01 FiO2 35 06/05/24 12:00 Narrative Exam GENERAL: A&Ox3 . Awake, Not in acute distress NEURO: no focal neurological deficits HEENT: Atraumatic, Normocephalic. mucous membranes moist. Eyes open, symmetrical, & clear HEART: Normal Heart Sounds LUNGS: Clear to auscultation with no wheezing or crackles. ABDOMEN: soft, non-distended, non-tender, bowel sounds heard, no guarding or rebound tenderness SKIN: No Rash or ecchymoses EXTREMITIES: No edema, tenderness, able to move all 4 extremities, pedal pulses palpated Discharge Plan Plan Patient Disposition: Home w/HOME HEALTH Care Plan Goals: Patient is recommended to follow-up with primary care physician within 1 week.recommended to have Echo as outpatient. Patient is recommended to discontinue the use of Xanax completely for management of anxiety and consider SSRI/SNRI for long-term management generalized anxiety disorder Patient is also recommended to follow-up with primary care physician for dose reduction of muscle relaxers including temazepam and tizanidine Patient is recommended follow-up with primary care physician for biopsy of lesion noted on chest CT . Patient is recommended to monitor for polypharmacy Prescriptions/Referrals Prescriptions/Med Rec: Continued amlodipine 10 mg tablet 10 mg PO DAILY Patient Comments: TAKE 1 TABLET BY MOUTH EVERY DAY FOR 30 DAYS thyroid (pork) [[place] Thyroid] 90 mg Tablet 90 mg PO DAILY Held tizanidine 4 mg Capsule 4 mg PO TID Hold Instructions: Resume on 06/10/24. Recommend follow-up with primary care physician for dose reduction in the setting of recent hospitalization secondary to polypharmacy hydrocodone-acetaminophen 10-325 mg tablet 10 - 325 tab PO Q6HR Hold Instructions: Resume on 06/10/24. Recommend follow-up with primary care physician for dose reduction in the setting of recent hospitalization secondary to polypharmacy Patient Comments: TAKE 1 TABLET BY MOUTH EVERY 6 HOURS temazepam 30 mg Capsule 30 mg PO DAILY Hold Instructions: Resume on 06/10/24. Recommend follow-up with primary care physician for dose reduction in the setting of recent hospitalization secondary to polypharmacy Discontinued alprazolam [Xanax] 1 mg Tablet 2 mg PO TID PRN (Reason: Anxiety) Referrals: Michael French MD [Primary Care Provider] - Patient/Caregiver Discharge Instructions Education Materials: The Flu (Influenza), ED ALOC Print Language: Swedish Stand Alone Forms: Jeanna Award Info., Patient Portal Info Letter Discharge Order Discharge Orders: Discharge (Routine); Ordered 06/08/24 Ordered By: Zach Schwartz Quality Discharge Quality Measures VTE prophylaxis
--- NOTE | 2024-06-09 07:39 | PC.CC ---
Addendum entered by Marc Leonard RN 06/09/24 10:31: Start of care date is 06/13/24. Addendum entered by Marc Leonard RN 06/09/24 07:46: [facility] accepted the pt. Booked [facility]. Pending start of care date. Original Note: No documentation from [facility] on pt. preference of HH agency. HH referral sent on [facility]. Awaiting responses. Pending Start of care date.
== END 2024-06-08 14:33 | disposition home health service (06) | DRG 208 ==
LOC: SERX 16:24 → SERHOLD 18:56 → S2SX 06-05 07:27 → S2NX 06-06 19:04
PROVIDERS: Registered Nurse General Practice; Student in an Organized Health Care Education/Training Program; Admitting Provider Internal Medicine; Emergency Provider Emergency Medicine; PCP Family Medicine; Visit Provider Internal Medicine
DX: J96.01 Acute respiratory failure with hypoxia (principal); G92.8 Other toxic encephalopathy; E87.20 Acidosis, unspecified; R57.9 Shock, unspecified; N17.9 Acute kidney failure, unspecified; R17 Unspecified jaundice; F13.20 Sedative, hypnotic or anxiolytic dependence, uncomplicated; G40.101 Localization-related (focal) (partial) symptomatic epilepsy and epileptic syndromes with simple partial seizures, not intractable, with status epilepticus; E83.52 Hypercalcemia; E86.0 Dehydration; E87.6 Hypokalemia; G47.00 Insomnia, unspecified; G89.29 Other chronic pain; E03.9 Hypothyroidism, unspecified; I10 Essential (primary) hypertension; I48.91 Unspecified atrial fibrillation; M79.7 Fibromyalgia; J44.9 Chronic obstructive pulmonary disease, unspecified; R29.6 Repeated falls; R91.1 Solitary pulmonary nodule; F41.1 Generalized anxiety disorder; T42.4X5A Adverse effect of benzodiazepines, initial encounter; T40.605A Adverse effect of unspecified narcotics, initial encounter; Z78.1 Physical restraint status; Z79.891 Long term (current) use of opiate analgesic; Z79.899 Other long term (current) drug therapy
CPT/HCPCS: 36415; 36600; 70450; 70496; 70498; 71045; 71250; 80048; 80053; 80061; 80202; 80307; 81001; 82550; 82803; 82945; 83605; 83735; 83970; 84100; 84132; 84145; 84157; 84439; 84443; 84484; 84703; 85025; 85610; 85730; 86171; 86331; 86403; 86592; 86635; 87040; 87070; 87081; 87086; 87205; 87400; 87498; 87530; 87811; 89051; 93005; 93225; 94002; 94003; 95816; 96361; 96365; 96375; 97162; 99291; A4649; J0133; J0283; J0696; J1643; J1644; J1953; J2060; J2251; J2405; J2470; J2543; J2704; J3010; J3370; J3371; J3480; J3490; J7030; J7050; J7120; Q9967; A9270

== ENCOUNTER 2024-06-26 10:07 | Emergency (ER) | payer MEDICARE, OTHER, SELFPAY ==
[2024-06-26 10:09] VITALS: BP 166/86; PULSE 81; RESP 15; TEMP 36.7; O2SAT 92; BMI 27.3
[2024-06-26 10:29] VITALS: PULSE 82; RESP 18; O2SAT 96
[2024-06-26 10:44] VITALS: BMI 27.3
--- NOTE | 2024-06-26 11:18 | PD.EDWEAK ---
ED Weakness RME/HPI General Chief complaint: Weakness Stated complaint: WEAKNESS Time Seen by Provider: 06/26/24 11:07 Arrival date/time: 06/26/24 10:07 RME / HPI RME / HPI Narrative: 68 year old female with history of hypertension, hypothyroidism, fibromyalgia, COPD, depression, chronic neck and back pain she reports is from arthritis presents to the ED for evaluation of weakness and frequent falls. Reports she was discharged from this facility 2 weeks ago and feels she was doing fine up until 3 days ago. States this morning while getting up to use the restroom with assistance of her she fell. Denies injuries. Denies fevers, chills, chest pain, cough, shortness of breath, abdominal pain, n/v/d. Related Data Home Medications ?Medication ?Instructions ?Recorded ?Confirmed tizanidine 4 mg capsule 4 mg PO TID 07/02/17 06/06/24 Held on 06/07/24. Instructions: Resume on 06/10/24. Recommend follow-up with primary care physician for dose reduction in the setting of recent hospitalization secondary to polypharmacy amlodipine 10 mg tablet 10 mg PO DAILY 08/20/23 06/06/24 hydrocodone 10 mg-acetaminophen 10 - 325 tab PO Q6HR 08/20/23 06/06/24 325 mg tablet Held on 06/07/24. Instructions: Resume on 06/10/24. Recommend follow-up with primary care physician for dose reduction in the setting of recent hospitalization secondary to polypharmacy temazepam 30 mg capsule 30 mg PO DAILY 09/23/23 06/06/24 Held on 06/07/24. Instructions: Resume on 06/10/24. Recommend follow-up with primary care physician for dose reduction in the setting of recent hospitalization secondary to polypharmacy thyroid (pork) 90 mg tablet 90 mg PO DAILY 09/23/23 06/06/24 ([place] Thyroid) Allergies Allergy/AdvReac Type Severity Reaction Status Date / Time pregabalin Allergy Severe TONGUE Verified 04/04/23 10:58 SWELLING gabapentin Allergy Intermediate Swelling Verified 04/04/23 10:58 Review of Systems Review of Systems Narrative Review of Systems: GEN: No fever, no chills, no weight loss, +generalized weakness EYES: No discharge, no visual changes, no pain HEENT: No ear pain, no congestion, no sore throat PULM: No shortness of breath, no cough, no congestion CV: No chest pain, no dyspnea on exertion, no palpitations GI: No nausea, no vomiting, no diarrhea, no pain, no constipation : No frequency, no urgency and no dysuria MUSC/SKEL: +chronic neck and back pain SKIN: No rash PSYCH: No hallucinations, no depression HEME/LYMPH: No easy bleeding or bruising tendencies NEURO: +generalized weakness, no headache Past Medical History Past Medical History NEUROLOGIC: Positive Neurological Disorders and Migraine RESPIRATORY: Positive Chronic Obstructive Pulmonary Disease (COPD) and Pneumonia GASTROINTESTINAL: Positive Gastrointestinal Disorders and Irritable Bowel GENITOURINARY: Positive Renal Disease REPRODUCTIVE: Positive Previous Pregnancies MUSCULOSKELETAL: Positive Musculoskeletal Disorders, Arthritis and Fibromyalgia ENDOCRINE: Positive Endocrine Disorders and Hypothyroidism HEMATOLOGIC: Positive Blood Disorders and Anemia PSYCHO/SOCIAL: Positive Depression and Anxiety OTHER HISTORY: Positive Blood Transfusions, Chicken Pox, Measles and Mumps Family History FAMILY HISTORY: Positive Family Respiratory Disorders and Family Cancer Surgical History SURGICAL: Positive Oral Surgery, Tonsillectomy, Adenoidectomy and Hysterectomy Social History SMOKING STATUS: Never smoker ED Exam Narrative Physical exam: GENERAL APPEARANCE: Well hydrated, well nourished, in no acute distress. VITALS: All vitals were reviewed and the pulse ox is 92% on room air which is normal according to my interpretation. HEENT: Normocephalic, atramatic, EOMI, no pin-point pupils, EACs are patent. There is no bulge or retraction. Throat without erythema or exudate. Moist oromucosa. No jaundice NECK: Supple, no JVD or bruits. CARDIOVASCULAR: Heart regular without S3-S4 or murmur. No rubs or gallops. LUNGS/CHEST: Clear to auscultation bilaterally. No rales, rhonchi, or wheezing. Normal inspection. ABDOMEN: Soft, nontender, with normal bowel sounds. No pulsatile masses. No rebound, rigidity, or guarding. No incarcerated hernia. Normal inspection and palpation. EXTREMITIES: Normal inspection and palpation. No edema, clubbing, or cyanosis. Intact CSM SKIN: Warm and dry without rashes. Normal inspection. MUSCULOSKELETAL: Normal inspection. No gross deformity, full ROM all extremities NEURO: Alert and oriented x3. Cranial nerves II through XII grossly intact. There are no other motor or sensory deficits noted. PSYCHIATRIC: Normal mood and affect. No psychosis. Course Quality Measures none Orders Category Date Time Status EKG (ED ONLY) *Do not use* NOW Care 06/26/24 11:39 Completed PT [Referral Physical Therapy] Stat Cons 06/26/24 15:[address] cervical spine wo con Stat Exams 06/26/24 11:[address] head/brain wo con Stat Exams 06/26/24 11:34 Completed EKG (ED Only) Stat Exams 06/26/24 11:38 Draft XR chest 1V portable Stat Exams 06/26/24 11:37 Completed CBC Stat Lab 06/26/24 12:33 Completed CMP [Comprehensive Metabolic Panel] Stat Lab 06/26/24 12:33 Completed Drug Screen,Urine Stat Lab 06/26/24 14:00 Completed Troponin I Stat Lab 06/26/24 12:33 Completed UA, C/S IF [Urinalysis, C/S if Indicated] Stat Lab 06/26/24 14:00 Completed HYDROcodone*/APAP 5/325 [[place] 5/325] Med 06/26/24 15:44 Discontinued 1 tab PO X1 ONE Ketorolac Inj [Toradol Inj] Med 06/26/24 14:16 Discontinued 30 mg IVP X1 ONE Sodium Chloride 0.9% 1000 ml [Ns] 1,000 ml Med 06/26/24 11:35 Active IV 80 mls/hr Vital Signs Vital signs: Vital Signs Temperature 98.0 F 06/26/24 10:09 Pulse Rate 81 06/26/24 10:09 Respiratory Rate 15 06/26/24 10:09 Blood Pressure 166/86 H 06/26/24 10:09 Pulse Oximetry (%) 92 L 06/26/24 10:09 Oxygen Delivery Method Room Air 06/26/24 10:09 Weakness MDM Narrative MDM Narrative:: IDeepali, isaiah scribing for and in the presence of Dr. Bang. CBC negative. CMP negative. Troponin negative. UA negative. U tox is positive for benzodiazepine and opiate. UA is negative. chest x-ray by me: Clear lungs except for a mass in the left upper lobe. This mass has been well-known by the patient. And she said that she is scheduled for biopsy this Wednesday. Heart normal. Mediastinum normal. Normal bones. No CHF. No pneumothorax. No pneumonia CT head reviewed by and interpreted by me as follow. No bleed. No mass. No shift. No swelling. Normal ventricle. Normal bones. CT cervical spine was reviewed by and interpreted by me as follow: Normal alignment. No fracture. No dislocation. Arthritis. No paraspinal soft tissue swelling. Twelve-lead EKG that was done at 1222 and interpreted by me: Sinus rhythm. Heart rate of [address] segment elevation or depression. No PVC. No STEMI. Regular rate and rhythm. It appears that she has a Q waves in leads of V1 V2. The patient continued to do well at home. Her came over and said that he wants the patient to go to the group home. And our social science manager was working on it. But then the patient who is alert awake oriented x 4 GCS of 15 absolutely refused to go to the group home. I encouraged her to call and talk to her . And she did. Finally her relented according to the patient and he is willing to take her home. The only request that she has is that we will transfer her home by ambulance. And we will. Nursing and social science manager are working on it Patient data External records reviewed:: [facility] previous records (I reviewed admission from 06/04/2024 through ) and EMS form Clinical information provided by:: patient and EMS Social determinants that could affect healthcare access:: none Patient has the following chronic illnesses:: hypertension, hypothyroidism, fibromyalgia, COPD, depression, chronic neck and back pain How is presenting disease/condition affected by chronic disease/condition?: exacerbated by Evaluation data The following diagnostics were reviewed and interpreted by me:: lab results and radiology exam(s) Lab and/or radiology exams considered but not ordered:: None Interpretation Summary: Ordering Physician: Clyde Bang MD Date of Service: 06/26/24 Procedure(s): CT cervical spine wo con Accession Number(s): [id number] cc: Wilman Davila MD; Clyde Bang MD~ Examination: CT cervical spine without contrast 2-D sagittal reconstructions 2-D coronal reconstructions 3-D reconstructions. Exam date and time:June 26, 2024 1150 hrs. Indications: Frequent falls this week with injury to the neck, neck pain CTDI:vol (mGy) 8.47 DLP: (mGycm) 185 Technique: Multiple 2 mm axial sections of the cervical spine have been obtained. The coronal and sagittal reconstructions have been obtained. 3-D reconstructions have been obtained. Low dose protocols were performed. One or more of the following dose reduction techniques were used; automated exposure control, adjustment of the mA and/or KV according to patient size, use of iterative reconstruction technique. Findings: Axial sections demonstrate intact base of the skull. C1 exhibit satisfactory relationship to the odontoid. No acute cervical vertebral body fracture seen. Alignment posterior spinous processes satisfactory. Impression: No acute cervical fracture. 22 mm focus of parenchymal disease in the left upper lobe image 125 Recommend AP lordotic chest follow-up Dictated By: Wilman Davila MD Signed By: <Electronically signed by Wilman Davila MD in OV> 06/26/24 1216 Ordering Physician: Clyde Bang MD Date of Service: 06/26/24 Procedure(s): CT head/brain wo con Accession Number(s): [id number] cc: Wilman Davila MD; Clyde Bang MD~ Examination: CT brain head without contrast. 2-D sagittal coronal reconstructions Date and time of exam:June 26, 2024 11:50 AM Indications: Frequent falls this week with injury to the head, head pain CTDI: vol (mGy): 52.1 DLP: (mGycm):1053 Technique: Multiple CT axial sections of the brain have been obtained, 5 mm slice thickness. Contrast has not been administered. 2-D sagittal, coronal reconstructions have been obtained Low dose protocols were performed. One or more of the following dose reduction techniques were used; automated exposure control, adjustment of the mA and/or KV according to patient size, use of iterative reconstruction technique. Findings: No significant ventricular enlargement. Intra-axial or extra-axial hemorrhage density is not seen. No mass effect or midline shift Basal cisterns are not remarkable. Fourth ventricle is midline. Cranial vault intact. Impression: Negative for acute hemorrhage, mass effect or midline shift Dictated By: Wilman Davila MD Signed By: <Electronically signed by Wilman Davila MD in OV> 06/26/24 1218 Ordering Physician: Clyde Bang MD Date of Service: 06/26/24 Procedure(s): XR chest 1V portable Accession Number(s): [id number] cc: Wilman Davila MD; Clyde Bang MD; Michael French MD~ Examination: AP chest single view Technique: AP portable upright chest single view Exam date and time: June 26, 2024 1310 hrs. 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 Dictated By: Wilman Davila MD Signed By: <Electronically signed by Wilman Davila MD in OV> 06/26/24 1410 Medications / Prescriptions Medications or Prescriptions considered but not ordered:: None Medication administrations:: Medication Administration History Sodium Chloride (Ns) 1,000 mls @ 80 mls/hr IV .[id number] ONE Stop: 06/27/24 00:04 Last Admin: 06/26/24 12:50 Dose: 80 mls/hr Documented By: NUBIA Discontinued Medications Hydrocodone Bitart/Acetaminophen (Hydrocodone/Apap 5/325 Tablet) 1 tab PO X1 ONE Stop: 06/26/24 15:45 Last Admin: 06/26/24 15:52 Dose: 1 tab Documented By: NUBIA Ketorolac Tromethamine (Ketorolac Inj 30 Mg/Ml Vial) 30 mg IVP X1 ONE Stop: 06/26/24 14:17 Last Admin: 06/26/24 14:21 Dose: 30 mg Documented By: NUBIA See above Consultations Consultation(s) initiated? (list below): No Diagnosis Weakness Differential Diagnosis: acute myocardial infarction, hypoglycemia, hypothyroidism, sepsis and dehydration Most likely diagnosis given after review of the tests above:: Generalized weakness by history Positive benzodiazepine Positive opiate Admission Indicated Admission indicated?: not indicated Admission Request Was there a request for admission?: No Disposition Plan Disposition Plan: Discharge Discharge Attestation Discharge Attestation: The patient and all family members were given an opportunity to ask questions and understood the discharge instructions. Discharge instructions specifically effects, indications for sooner follow up or return to the emergency department, and the expected course of current diagnosis. Patient condition: Stable Discharge Plan Plan Patient Disposition: HOME (Self Care) Disposition Comment: Stable to go home Prescriptions/Referrals Prescriptions/Med Rec: No Action tizanidine 4 mg Capsule 4 mg PO TID amlodipine 10 mg tablet 10 mg PO DAILY Patient Comments: TAKE 1 TABLET BY MOUTH EVERY DAY FOR 30 DAYS hydrocodone-acetaminophen 10-325 mg tablet 10 - 325 tab PO Q6HR Patient Comments: TAKE 1 TABLET BY MOUTH EVERY 6 HOURS temazepam 30 mg Capsule 30 mg PO DAILY thyroid (pork) [[place] Thyroid] 90 mg Tablet 90 mg PO DAILY Referrals: Michael French MD [Primary Care Provider] - In 1 week Problem List Clinical Impression: Generalized weakness, Opiate use, History of benzodiazepine use Patient/Caregiver Discharge Instructions Education Materials: ED Weakness (Uncertain Cause) Additional Instructions: Combination of painkiller and sedative may be a little bit too much for you. Please cut back. Follow-up with your medical doctor for recheck in 3 days. Return to the emergency department if any problem. Do not miss your appointment for biopsy. Print Language: Armenian Stand Alone Forms: Jeanna Award Info., Patient Portal Info Letter
--- NOTE | 2024-06-26 11:34 | XR_ITS ---
Examination: CT brain head without contrast. 2-D sagittal coronal reconstructions Date and time of exam:June 26, 2024 11:50 AM Indications: Frequent falls this week with injury to the head, head pain CTDI: vol (mGy): 52.1 DLP: (mGycm):1053 Technique: Multiple CT axial sections of the brain have been obtained, 5 mm slice thickness. Contrast has not been administered. 2-D sagittal, coronal reconstructions have been obtained Low dose protocols were performed. One or more of the following dose reduction techniques were used; automated exposure control, adjustment of the mA and/or KV according to patient size, use of iterative reconstruction technique. Findings: No significant ventricular enlargement. Intra-axial or extra-axial hemorrhage density is not seen. No mass effect or midline shift Basal cisterns are not remarkable. Fourth ventricle is midline. Cranial vault intact. Impression: Negative for acute hemorrhage, mass effect or midline shift
--- NOTE | 2024-06-26 11:34 | XR_ITS ---
Examination: CT cervical spine without contrast 2-D sagittal reconstructions 2-D coronal reconstructions 3-D reconstructions. Exam date and time:June 26, 2024 1150 hrs. Indications: Frequent falls this week with injury to the neck, neck pain CTDI:vol (mGy) 8.47 DLP: (mGycm) 185 Technique: Multiple 2 mm axial sections of the cervical spine have been obtained. The coronal and sagittal reconstructions have been obtained. 3-D reconstructions have been obtained. Low dose protocols were performed. One or more of the following dose reduction techniques were used; automated exposure control, adjustment of the mA and/or KV according to patient size, use of iterative reconstruction technique. Findings: Axial sections demonstrate intact base of the skull. C1 exhibit satisfactory relationship to the odontoid. No acute cervical vertebral body fracture seen. Alignment posterior spinous processes satisfactory. Impression: No acute cervical fracture. 22 mm focus of parenchymal disease in the left upper lobe image 125 Recommend AP lordotic chest follow-up
--- NOTE | 2024-06-26 11:37 | XR_ITS ---
Examination: AP chest single view Technique: AP portable upright chest single view Exam date and time: June 26, 2024 1310 hrs. 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
--- NOTE | 2024-06-26 11:38 | EKG_ITS ---
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
[2024-06-26 12:16] VITALS: BP 163/86; PULSE 80; RESP 25; TEMP 36.8; O2SAT 95
[2024-06-26] MEDS: SODIUM CHLORIDE 0.9% 1000 ML 1,000 ML 80 ML IV (12:50)
[2024-06-26 13:02] LABS: Basophils # (Auto) 0.1 Thou/mm3 (0.0-0.2); Basophils % (Auto) 1 % (0-2.5); Eosinophils # (Auto) 0.1 Thou/mm3 (0.0-0.5); Eosinophils % (Auto) 1 % (0-10); Hematocrit 43.2 % (36.0-46.0); Hemoglobin 13.5 g/dL (12.0-16.0); Immature Granulocytes % (Auto) 0 % (0-0); Immature Granulocytes Auto 0.02 Thou/mm3 (0.00-0.00); Lymphocytes # (Auto) 1.3 Thou/mm3 (1.0-4.8); Lymphocytes % (Auto) 15 % (10-50); Mean Corpuscular HGB Conc 31.3 g/dl (31.0-37.0); Mean Corpuscular Hemoglobin 29.5 pg (25.0-35.0); Mean Corpuscular Volume 95 fL (80-100); Monocytes # (Auto) 0.6 Thou/mm3 (0.0-0.8); Monocytes % (Auto) 7 % (0-12); Neutrophils # (Auto) 6.7 Thou/mm3 (1.8-7.7); Neutrophils % (Auto) 77 % (37-80); Nucleated Red Blood Cell % 0 /100 WBC (0); Platelet Count 467 Thou/mm3 (140-440); Red Blood Count 4.57 Miln/mm3 (4.00-5.20); White Blood Count 8.8 Thou/mm3 (3.6-11.0)
[2024-06-26 13:26] LABS: Alanine Aminotransferase < 7 U/L (10-49); Albumin, Serum 4.2 gm/dL (3.4-4.8); Albumin/Globulin Ratio 1.2 (1.2-2.2); Alkaline Phosphatase 92 U/L (46-116); Anion Gap 11 (7-16); Aspartate Amino Transferase 14 U/L (0-34); BUN/Creatinine Ratio 11 Ratio (12-20); Bilirubin,Total 0.6 mg/dL (0.3-1.2); Blood Urea Nitrogen 9 mg/dL (9-23); Calcium 9.8 mg/dL (8.3-10.6); Calcium (Corrected) 9.8 mg/dL (8.5-10.1); Carbon Dioxide 29.4 mMol/L (20.0-31.0); Chloride 101 mMol/L (98-107); Creatinine (Component) 0.8 mg/dL (0.6-1.3); Estimated Creatinine Clearance 74.4 mL/min (>60); Globulin 3.6 gm/dL (2.3-3.5); Glucose 96 mg/dL (74-106); Osmolality,Calculated 279 (275-295); Potassium 3.9 mMol/L (3.4-5.1); Sodium 141 mMol/L (136-145); Total Protein 7.8 gm/dL (5.7-8.2); Troponin I < 0.020 ng/mL (0.0-0.045); eGFR > 60 See Note
[2024-06-26] MEDS: KETOROLAC INJ 30 MG/ML VIAL IVP (14:21)
[2024-06-26 14:23] VITALS: BP 159/85; PULSE 80; RESP 16; TEMP 37.7; O2SAT 95
[2024-06-26 14:36] LABS: Collection Type, Urine Catheter; WBC,Urine 0 /hpf (0-5)
[2024-06-26 14:46] LABS: Amorphous Crystals,Urine Present (Absent); Bilirubin,Urine Negative (Negative); Blood,Urine Negative (Negative); Color,Urine Yellow (Lt Yel-Yel); Culture Indicated,Urine Not Indicated; Glucose, Urine Negative (Negative); Ketones,Urine Negative (Negative); Leukocyte Esterase,Urine Negative (Negative); Nitrite,Urine Negative (Negative); PH,Urine 7.5 (5.0-7.0); Protein,Urine Negative (Neg - Trace); RBC,Urine 2 /hpf (0-3); Specific Gravity,Urine 1.012 (1.001-1.035); Squamous Epithelial Cell,Urine < 1 /hpf (0-5); Urobilinogen,Urine Negative mg/dL (0.0-1.0)
[2024-06-26 14:47] LABS: Clarity,Urine Hazy (Clear/Hazy)
[2024-06-26 15:02] LABS: Amphetamine/Methamp Scrn,U Negative (Negative); Barbiturate Screen,Urine Negative (Negative); Benzodiazepines Screen,Urine Positive (Negative); Benzoylecgonine Screen, Ur Negative (Negative); Fentanyl Screen,Urine Negative (Negative); Opiate Screen,Urine Positive (Negative); THC Screen,Urine Negative (Negative)
[2024-06-26] MEDS: HYDROcodone/APAP 5/325 TABLET 1 TAB PO (15:52)
--- NOTE | 2024-06-26 16:07 | PC.CC ---
Adrianne MCKENZIE was consulted for SNF placement for patient. KARLAW made face to face contact with the patient introduced self, role, and reason for visit. Adrianne MCKENZIE made kfnc-[id number]-vywp contact with patient. KARLAW introduced self, role, and reason for visit. Patient appeared alert and oriented to self, location, and situation.?Patient reports she would like to go to a senior care facility to help her get stronger as she has had multiple falls recently. JONAH explained to the patient that this will be a process but the referral will be initiated. JONAH sent referral to local SNF via [employer].
[2024-06-26 16:35] VITALS: BP 145/84; PULSE 75; RESP 18; TEMP 36.8; O2SAT 95
--- NOTE | 2024-06-26 17:51 | PC.CC ---
ASWAdrianne was consulted regarding the patient not wanting to go to SNF after all and wants to return home. ASW arranged transportation for patient via [facility] the patient covered cost for transportation as insurance did not cover the transport.
[2024-06-26 18:45] VITALS: BP 136/98; PULSE 82; RESP 17; TEMP 36.8; O2SAT 98
== END 2024-06-26 19:10 | disposition home or self-care (01) ==
PROVIDERS: Emergency Provider Emergency Medicine; PCP Family Medicine
DX: R53.1 Weakness (principal); F11.90 Opioid use, unspecified, uncomplicated; S19.9XXA Unspecified injury of neck, initial encounter; S09.90XA Unspecified injury of head, initial encounter; R94.31 Abnormal electrocardiogram [ECG] [EKG]; D49.1 Neoplasm of unspecified behavior of respiratory system; R29.6 Repeated falls; I10 Essential (primary) hypertension; W19.XXXA Unspecified fall, initial encounter
CPT/HCPCS: 36415; 70450; 71045; 72125; 80053; 80307; 81001; 84484; 85025; 96374; 99284; J1885; J7030; A9270

== ENCOUNTER 2024-10-24 07:07 | Outpatient (CLI) | payer MEDICARE, OTHER, SELFPAY ==
[2024-10-20 09:59] VITALS: BMI 26.4
[2024-10-23 12:37] LABS: Basophils # (Auto) 0.1 Thou/mm3 (0.0-0.2); Basophils % (Auto) 1 % (0-2.5); Eosinophils # (Auto) 0.3 Thou/mm3 (0.0-0.5); Eosinophils % (Auto) 3 % (0-10); Hematocrit 40.1 % (36.0-46.0); Hemoglobin 12.6 g/dL (12.0-16.0); Immature Granulocytes % (Auto) 0 % (0-0); Immature Granulocytes Auto 0.02 Thou/mm3 (0.00-0.00); Lymphocytes # (Auto) 2.6 Thou/mm3 (1.0-4.8); Lymphocytes % (Auto) 28 % (10-50); Mean Corpuscular HGB Conc 31.4 g/dl (31.0-37.0); Mean Corpuscular Hemoglobin 29.1 pg (25.0-35.0); Mean Corpuscular Volume 93 fL (80-100); Monocytes # (Auto) 0.9 Thou/mm3 (0.0-0.8); Monocytes % (Auto) 9 % (0-12); Neutrophils # (Auto) 5.5 Thou/mm3 (1.8-7.7); Neutrophils % (Auto) 59 % (37-80); Nucleated Red Blood Cell % 0 /100 WBC (0); Platelet Count 436 Thou/mm3 (140-440); RDW Standard Deviation 52.4 fL (36.4-46.3); Red Blood Count 4.33 Miln/mm3 (4.00-5.20); White Blood Count 9.3 Thou/mm3 (3.6-11.0)
[2024-10-23 12:44] LABS: Blood Urea Nitrogen 10 mg/dL (9-23); Creatinine (Component) 0.8 mg/dL (0.6-1.3); Estimated Creatinine Clearance 72.2 mL/min (>60); eGFR > 60 See Note
[2024-10-23 12:53] LABS: Partial Thromboplastin Time 32.6 Seconds (22.0-36.0); Prothrombin Time 11.1 Seconds (9.0-12.2)
[2024-10-24] VITALS (15 sets, daily range): BP systolic 108–132; BP diastolic 61–84; PULSE 62–78; RESP 11–20; TEMP 36.5–36.9; O2SAT 93–99
--- NOTE | 2024-10-24 08:30 | XR_ITS ---
Examination: CT guided percutaneous biopsy pulmonary mass left upper lobe CT thorax without intravenous contrast Moderate intravenous conscious sedation Date and time of procedure: October 24, 2024 0906 hours Informed consent provided. A timeout was completed verifying correct patient, procedure, site and positioning. Under physician supervision,1 mg Versed 75 mcg fentanyl was administered intravenously for moderate sedation. Pulse oximetry, heart rate, blood pressure were continuously monitored within independent trained observer present. The physician spent 30 minutes of cqou-rr-kitc sedation time with the patient. Technique: Axial 3 mm sections were obtained for localization of the pulmonary mass left upper lobe Appropriate area is marked. The patient's site was prepped and draped in sterile fashion Maximal sterile barrier technique utilized, including hand hygiene Local anesthesia was obtained with 1% lidocaine. Low dose protocols were performed. One or more of the following dose reduction techniques were used; automated exposure control, adjustment of the mA and/or KV according to patient size, use of iterative reconstruction technique. Findings: The biopsy/aspiration is obtained with a 18-gauge core needle 3 core biopsies have been obtained. Patient appears in stable condition during this procedure. At completion of the procedure, the patient is in satisfactory condition. Estimated blood loss 0 cc Complete pathology report to follow. Impression: Successful CT-guided percutaneous biopsy pulmonary mass left upper lobe
[2024-10-24] MEDS: MIDAZOLAM INJ 1 MG/ML VIAL 2 ML IVP (09:45)
[2024-10-24] MEDS: fentaNYL CIT INJ 50 mCg/ML AMP 2ML 75 MCG IVP (10:05)
--- NOTE | 2024-10-24 10:19 | XR_ITS ---
Examination: AP chest single view Technique one AP upright portable chest single view Date and time: October 24, 2024 1046 hours INDICATIONS: Post biopsy pulmonary mass left upper lobe today. FINDINGS: No pneumothorax post lung biopsy Pulmonary mass left upper lobe again noted IMPRESSION: No pneumothorax post lung biopsy
--- NOTE | 2024-10-24 11:45 | XR_ITS ---
Examination: AP chest single view TECHNIQUE: AP upright portable chest single view Date and time: October 24, 2024 1151 hours INDICATIONS: Post biopsy pulmonary mass left upper lobe FINDINGS: No pneumothorax post biopsy pulmonary mass left upper lobe IMPRESSION: No pneumothorax post biopsy pulmonary mass left upper lobe
== END 2024-10-24 12:20 | disposition home or self-care (01) ==
PROVIDERS: Radiology Diagnostic Radiology; PCP Family Medicine; Referring Provider Family Medicine; Visit Provider Family Medicine
DX: J18.8 Other pneumonia, unspecified organism (principal); R91.8 Other nonspecific abnormal finding of lung field; Z01.812 Encounter for preprocedural laboratory examination
CPT/HCPCS: 32408; 36415; 77012; 82565; 84520; 85025; 85610; 85730; 99152; 99153; J2250; J3010

== ENCOUNTER 2025-04-10 01:58 | Emergency (ER) | payer MEDICARE, OTHER, SELFPAY ==
[2025-04-10] VITALS (22 sets, daily range): BP systolic 136–160; BP diastolic 74–87; PULSE 74–95; RESP 16–23; TEMP 37.1–37.3; O2SAT 92–98; BMI 25.2; BMI 11.0
--- NOTE | 2025-04-10 02:24 | PD.EDWEAK ---
ED Weakness RME/HPI General Chief complaint: Weakness Stated complaint: WEAKNESS Time Seen by Provider: 04/10/25 02:12 Arrival date/time: 04/10/25 01:58 Limitations: no limitations RME / HPI RME / HPI Narrative: Dr. Luciano's Main ED Evaluation: 69yo female with a history of fibromyalgia, hypothyroidism, HTN, COPD, migraines, depression KARIN from home presents to the ED after getting in a verbal argument with her . Patient states her wouldn't help her get out of bed to use the restroom, so she pooped my pants while in bed. Patient endorses having difficulty out of bed, which is chronic. Patient denies any fever, chills, N/V, or any other associated symptoms. Related Data Home Medications ?Medication ?Instructions ?Recorded ?Confirmed tizanidine 4 mg capsule 4 mg PO TID 07/02/17 10/24/24 amlodipine 10 mg tablet 10 mg PO DAILY 08/20/23 10/24/24 hydrocodone 10 mg-acetaminophen 10 - 325 tab PO Q6HR 08/20/23 10/24/24 325 mg tablet temazepam 30 mg capsule 30 mg PO DAILY 09/23/23 10/24/24 thyroid (pork) 90 mg tablet 90 mg PO DAILY 09/23/23 10/24/24 ([place] Thyroid) alprazolam 2 mg tablet 2 mg PO BID 10/24/24 10/24/24 Previous Rx's ?Medication ?Instructions ?Recorded cephalexin 500 mg capsule 500 mg PO TID #21 caps 04/10/25 Allergies Allergy/AdvReac Type Severity Reaction Status Date / Time pregabalin Allergy Severe TONGUE Verified 04/10/25 02:13 SWELLING gabapentin Allergy Intermediate Swelling Verified 04/10/25 02:13 ciprofloxacin (From Cipro) Allergy Verified 04/10/25 02:13 Review of Systems Review of Systems Systems Reviewed: All systems reviewed, normal except as documented Past Medical History Past Medical History NEUROLOGIC: Positive Neurological Disorders and Migraine CARDIAC: Positive Cardiac Disorders, Congestive Heart Failure and Hypertension; Negative Hypercholesterolemia RESPIRATORY: Positive Chronic Obstructive Pulmonary Disease (COPD) and Pneumonia; Negative Asthma GASTROINTESTINAL: Positive Gastrointestinal Disorders and Irritable Bowel; Negative Hepatitis GENITOURINARY: Positive Genitourinary Disorders; Negative Renal Disease REPRODUCTIVE: Positive Previous Pregnancies MUSCULOSKELETAL: Positive Musculoskeletal Disorders, Arthritis and Fibromyalgia ENDOCRINE: Positive Endocrine Disorders and Hypothyroidism; Negative Diabetes Mellitus Type 1 or Diabetes Mellitus Type 2 HEMATOLOGIC: Positive Blood Disorders and Anemia; Negative Sickle Cell Disease PSYCHO/SOCIAL: Positive Depression and Anxiety OTHER HISTORY: Positive Blood Transfusions, Chicken Pox, Measles and Mumps; Negative Autoimmune Disease, Blood Transfusion Reaction, Anesthesia Reactions, Human Immunodeficiency Virus (HIV), Rubella (Tamazight Measles), Pertussis, Clostridium Difficile or Cancer Family History FAMILY HISTORY: Positive Family Respiratory Disorders and Family Cancer; Negative Family Psychiatric Problems, Family Cardiac Disorders, Family Gastrointestinal Problems, Family Surgery or Family Anesthesia Reaction Surgical History SURGICAL: Positive Endocrine Surgery, Oral Surgery, Tonsillectomy, Adenoidectomy, Abdominal Surgery (spleen surgery 2002) and Hysterectomy; Negative Cardiac Surgery Social History SMOKING STATUS: Former smoker ED Exam General Limitations: Present no limitations General appearance: Present alert and in no apparent distress Head Head exam: Present atraumatic Eye Eye exam: Present normal appearance, PERRL and EOMI ENT ENT exam: Present normal exam, normal oropharynx and mucous membranes moist Neck Neck exam: Present normal inspection, full ROM and trachea midline Chest Chest inspection: Present normal inspection and symmetric chest wall rise Respiratory Respiratory exam: Present normal lung sounds bilaterally Cardiovascular Cardiovascular exam: Present regular rate, normal rhythm and normal heart sounds Abdominal Exam Abdominal exam: Present soft; Absent distention, tenderness, guarding or rebound Extremities Exam Extremities exam: Present normal inspection and full ROM Back Exam Back exam: Present normal inspection and full ROM Neurological Exam Neurological exam: Present alert, oriented X3, CN II-XII intact and other (Moving all extremities); Absent motor sensory deficit Psychiatric Psychiatric exam: Present normal affect and normal mood Skin Skin exam: Present warm, dry, normal color and other (stage 1 decubitus ulcers to the bilateral buttocks without discharge); Absent pallor Course Quality Measures none Orders Category Date Time Status Consult Counter Intelligence Technician NOW Care 04/10/25 05:55 Active Negron [Urinary Catheter] QS Care 04/10/25 02:26 Active Straight [In and Out Catheter] X1 Care 04/10/25 02:42 Active Referral Physical Therapy Stat Cons 04/10/25 05:56 Active BMP [Basic Metabolic Panel] Stat Lab 04/10/25 02:50 Completed CBC Stat Lab 04/10/25 02:50 Completed Troponin I Stat Lab 04/10/25 02:50 Completed Urinalysis, C/S if Indicated Stat Lab 04/10/25 04:24 Completed cephALEXin [Keflex] Med 04/10/25 05:33 Discontinued 500 mg PO X1 ONE Vital Signs Vital signs: Vital Signs Temperature 99.1 F 04/10/25 02:09 Pulse Rate 90 04/10/25 02:09 Respiratory Rate 18 04/10/25 02:09 Blood Pressure 160/79 H 04/10/25 02:09 Pulse Oximetry (%) 93 L 04/10/25 02:09 Oxygen Delivery Method Room Air 04/10/25 02:09 Weakness MDM Narrative MDM Narrative:: Scribe Attestation: 04/10/25 - Lizz Adler am scribing for and in the presence of Dr. Luciano. 69-year-old brought in by EMS after arguing with 100 multiple times and then he did not want to help her up. Normally the will help her ambulate. The patient then soiled her pants and called the EMS because her refused to wipe her bottom and help change her. The patient otherwise has no new trauma, no new falls. Urinalysis shows possible UTI. Urine was a straight cath. 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 At this time he refuses to come the patient. He states that she has been having more frequent falls and would like to have her reassessed. Patient signed out to Dr. Mariano at 6:15 AM pending PT, OT, and social work consult. Patient data External records reviewed:: [facility] previous records (Per chart review, patient was seen here on 06/26/24 for generalized weakness.) and EMS form Clinical information provided by:: patient Social determinants that could affect healthcare access:: none Patient has the following chronic illnesses:: fibromyalgia, hypothyroidism, HTN, COPD, migraines, depression How is presenting disease/condition affected by chronic disease/condition?: exacerbated by Evaluation data The following diagnostics were reviewed and interpreted by me:: lab results Lab and/or radiology exams considered but not ordered:: none Interpretation Summary: WBC 11.3, K 3.1, Glucose 113, Troponin normal, UA contaminated. Medications / Prescriptions Medications or Prescriptions considered but not ordered:: none Medication administrations:: Medication Administration History Discontinued Medications Cephalexin HCl (Cephalexin 250 Mg Capsule) 500 mg PO X1 ONE Stop: 04/10/25 05:34 As above. Consultations Consultation(s) initiated? (list below): No Diagnosis Weakness Differential Diagnosis: dehydration and other (UTI, electrolyte abnormality) Most likely diagnosis given after review of the tests above:: see clinical impression below Admission Indicated Admission indicated?: not indicated (Signed out to Dr. Mariano at 615 pending PT OT and social work consult.) Explain why admission is indicated or not indicated:: Patient signed out with PT, OT and social work consult pending. Admission Request Was there a request for admission?: No Disposition Plan Disposition Plan: other (specify) (Signed out to Dr. Mariano at 0 615 pending PT OT and social work consult for frequent falls.) Discharge Plan Prescriptions/Referrals Prescriptions/Med Rec: New cephalexin 500 mg capsule 500 mg PO TID Qty: 21 0RF No Action tizanidine 4 mg Capsule 4 mg PO TID amlodipine 10 mg tablet 10 mg PO DAILY Patient Comments: TAKE 1 TABLET BY MOUTH EVERY DAY FOR 30 DAYS hydrocodone-acetaminophen 10-325 mg tablet 10 - 325 tab PO Q6HR Patient Comments: TAKE 1 TABLET BY MOUTH EVERY 6 HOURS alprazolam 2 mg tablet 2 mg PO BID Patient Comments: TAKE 1 TABLET BY MOUTH THREE TIMES A DAY Rx Instructions: max daily dose 2 temazepam 30 mg Capsule 30 mg PO DAILY thyroid (pork) [[place] Thyroid] 90 mg Tablet 90 mg PO DAILY Referrals: Michael French MD [Primary Care Provider, Family Practice] - In 1 week Problem List Clinical Impression: Acute UTI, Falls frequently Patient/Caregiver Discharge Instructions Education Materials: ED CYSTITIS Female Adult Additional Instructions: Return to emergency department for worsening symptoms and other concerns. You will need to follow-up with your primary care in the next every 2 hours so you can get the results of the urine culture. Print Language: Armenian Stand Alone Forms: Jeanna Award Info., Patient Portal Info Letter
[2025-04-10 03:36] LABS: Basophils # (Auto) 0.1 Thou/mm3 (0.0-0.2); Basophils % (Auto) 1 % (0-2.5); Eosinophils # (Auto) 0.1 Thou/mm3 (0.0-0.5); Eosinophils % (Auto) 1 % (0-10); Hematocrit 42.8 % (36.0-46.0); Hemoglobin 13.6 g/dL (12.0-16.0); Immature Granulocytes Auto 0.03 Thou/mm3 (0.00-0.00); Lymphocytes # (Auto) 1.7 Thou/mm3 (1.0-4.8); Lymphocytes % (Auto) 15 % (10-50); Mean Corpuscular HGB Conc 31.8 g/dl (31.0-37.0); Mean Corpuscular Hemoglobin 29.3 pg (25.0-35.0); Mean Corpuscular Volume 92 fL (80-100); Monocytes # (Auto) 0.7 Thou/mm3 (0.0-0.8); Monocytes % (Auto) 6 % (0-12); Neutrophils # (Auto) 8.7 Thou/mm3 (1.8-7.7); Neutrophils % (Auto) 77 % (37-80); Nucleated Red Blood Cell # 0.00 Thou/mm3 (0.00-0.00); Nucleated Red Blood Cell % 0 /100 WBC (0); Platelet Count 561 Thou/mm3 (140-440); RDW Standard Deviation 51.8 fL (36.4-46.3); Red Blood Count 4.64 Miln/mm3 (4.00-5.20); White Blood Count 11.3 Thou/mm3 (3.6-11.0)
[2025-04-10 03:39] LABS: Anion Gap 11 (7-16); BUN/Creatinine Ratio 10 Ratio (12-20); Blood Urea Nitrogen 8 mg/dL (9-23); Calcium 9.5 mg/dL (8.3-10.6); Carbon Dioxide 30.8 mMol/L (20.0-31.0); Chloride 100 mMol/L (98-107); Creatinine (Component) 0.8 mg/dL (0.6-1.3); Estimated Creatinine Clearance 66.0 mL/min (>60); Glucose 113 mg/dL (74-106); Osmolality,Calculated 282 (275-295); Potassium 3.1 mMol/L (3.4-5.1); Sodium 142 mMol/L (136-145); eGFR > 60 See Note
[2025-04-10 03:52] LABS: Troponin I < 0.020 ng/mL (0.0-0.045)
[2025-04-10 04:43] LABS: Collection Type, Urine Catheter
[2025-04-10 05:13] LABS: Amorphous Crystals,Urine Present (Absent); Bacteria,Urine 4+; Bilirubin,Urine Negative (Negative); Blood,Urine Trace (Negative); Budding Yeast,Urine Present; Clarity,Urine Turbid (Clear/Hazy); Color,Urine Yellow (Lt Yel-Yel); Culture Indicated,Urine Contaminated; Glucose, Urine Negative (Negative); Ketones,Urine Negative (Negative); Leukocyte Esterase,Urine Positive (Negative); Nitrite,Urine Negative (Negative); PH,Urine 6.5 (5.0-7.0); Protein,Urine Negative (Neg - Trace); RBC,Urine 8 /hpf (0-3); Specific Gravity,Urine 1.012 (1.001-1.035); Squamous Epithelial Cell,Urine 31 /hpf (0-5); Urobilinogen,Urine Negative mg/dL (0.0-1.0); WBC,Urine 32 /hpf (0-5)
--- NOTE | 2025-04-10 05:58 | PC.NURSE ---
SPOKE TO PT'S MARTHA TO INFORM HIM PT WAS GOING TO BE DC'D. PER HE IS CONCERNED ABOUT PT BEING SENT HOME AT THIS TIME PT HAS HAD MULTIPLE FALLS IN THE LAST FEW WEEKS. PER PT HAD LAST FALL TWO DAYS AGO AND REQUESTED FIRE DEPT TO ASSIST PT FROM FALL. STATES PT HAS SINCE NOT BEEN OUT OF BED AND STATES PT WAS COVERED IN [facility]ECES TODAY FOR THAT REASON. MD ATKINSON INFORMED, AND NEW ORDERS RECEIVED FOR PT/SS CONSULT.
--- NOTE | 2025-04-10 07:17 | EDNOTE_ITS ---
Emergency Room Addendum Addendum Narrative: 0600: Care assumed from Dr. Booth, the previous shift emergency physician. Past medical, surgical, social and family history reviewed. Vitals and home medications reviewed. I will assume the care of the patient at this time, pending physical therapy assessment and final disposition. Please refer to the emergency department record for history and examination from initial visit.?The following addendum documentation note is intended to reflect any pending information, findings, or radiology results not included in the patient?s initial chart. senior web services developer has evaluated the patient and states with PT recommendations, the patient meets criteria for rehab/snf placement. Patient was been accepted at [facility], EMS p/u at 14:00h.
--- NOTE | 2025-04-10 07:31 | PC.NURSE ---
at bedside and updated on plan of care.
--- NOTE | 2025-04-10 08:07 | PC.SS ---
SS sent out SNF referral through [employer] platform. to SNF facilities as well as acute rehab facilities.
--- NOTE | 2025-04-10 09:25 | PC.NURSE ---
PT AT BEDSIDE FOR EVAL.
--- NOTE | 2025-04-10 09:43 | PC.SS ---
Addendum entered by Lucia Moore 04/10/25 11:45: SS follow up note; SS set up transportation for patient with [facility]. ETA for 1400. Mae informed SS that Dr. Gresham is the accepting physician. SS updated patient's nurse, Jeanna and Dr. Larson. Addendum entered by Lucia Moore 04/10/25 11:24: SS follow up note; SS was Contacted by Mae from [facility] and informed SS transportation could be set up. SS will have to have GILDA form signed for transportation as [facility]. Addendum entered by Lucia Moore 04/10/25 10:23: SS follow up note; SS met with patient at bedside, reason and role was explained. Patient inquired about discharge to acute rehab. Patient agreeable to discharge to [facility]. SS will contact Mae at [phone]. Original Note: SS Follow up note; SS contacted Patient's Vaughn and informed him that [facility] in [place] accepted patient, however patient was pending PT evaluation. Patient agreeable to have patient discharge to [facility]. SS will set up transportation once PT notes are documented. SS will stand by for further needs
--- NOTE | 2025-04-10 10:21 | PC.PT ---
PT eval complete. Please see evaluation note for further details.
--- NOTE | 2025-04-10 12:06 | PC.NURSE ---
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
--- NOTE | 2025-04-10 13:56 | PC.SS ---
SS follow up note; SS was contacted by [facility] informing SS that due to high levels of Emergency calls patient's new ETA will be for 1500. SS updated patient's nurse and Mae from [facility].
--- NOTE | 2025-04-10 14:46 | PC.NURSE ---
Lisseth nurse from [facility] rehab called and I gave report on pt. nurse aware of eta.change of 1600.
== END 2025-04-10 15:16 | disposition skilled nursing facility (03) ==
PROVIDERS: Emergency Provider Emergency Medicine; PCP Family Medicine
DX: N39.0 Urinary tract infection, site not specified (principal); R29.6 Repeated falls; Z75.1 Person awaiting admission to adequate facility elsewhere
CPT/HCPCS: 36415; 51702; 80048; 81001; 84484; 85025; 99283; A4314; A9270